=== PATIENT | female | born 1980 | race Caucasian/White ===

== ENCOUNTER 2016-08-13 00:40 | Emergency (ER) | payer MEDICARE, MEDICAID ==
[~2016-08-13 00:40] MED LIST: /CELE20CA PO; ACET500C; ACET500C PO; AMIT25TA2 OR; AMIT50TA PO; BACL10TA2 PO; CHEMO INJ; CIPR500T19; COLA50CA OR; DOCQ100C PO; DOCU10CA PO; FLEXERIL PO; FOLI1TAB2 PO; IBUP200T2 PO; IBUP400T PO; IBUPPOW25 PO; KEFL500C7 PO; LOPE2TAB PO; LYRI75CA OR; LYRI75CA PO; MIREIUD IU; MULTIVIT PO; NICO21DI4; NIFEREX; NORCOTAB PO; NYST50SS SS; No Historical Meds; PROC10TA PO; PSEU30OTC OR; SENN-15 PO; SENO8.6T5 OR; SOMA350T PO; TRAM50TA2 OR; TRAM50TA2 PO; TUMS500C PO; TYLE325T5 PO; TYLETAB3 PO; ULTR50TA PO; VITA500T53 PO; ZOFR20TA PO
[2016-08-13] MEDS ORDERED: traMADol 50 MG TAB As Ordered ONE (01:17)
[2016-08-13] MEDS ORDERED: KETOROLAC 30 MG/ML VIAL (J1885) As Ordered ONE (01:43)
[2016-08-13 01:47] LABS: BASO % 0.3 % (0.0-1.0); EOS # 0.1 K/mm3 (0.0-0.50); EOS % 3.2 % (0.0-3.0); LARGE UNSTAINED CELL # 0.1 K/mm3 (0.0-0.4); LARGE UNSTAINED CELL % 3.4 % (0.0-4.0); LYMPH # 0.2 K/mm3 (1.5-4.5); LYMPH % 8.2 % (24.0-44.0); MEAN CORPUSCULAR HGB CONC 34.7 g/dl (32.0-36.5); MEAN CORPUSCULAR VOLUME 86.6 fl (80.0-96.0); MONO # 0.2 K/mm3 (0.0-0.8); MONO % 6.9 % (0.0-5.0); NEUTROPHILS # 2.3 K/mm3 (1.8-7.7); PLATELET COUNT, AUTOMATED 133 k/mm3 (150-450); RED CELL DISTRIBUTION WIDTH 16.1 % (11.5-14.5); WHITE BLOOD COUNT 2.9 K/mm3 (4.0-10.0)
[2016-08-13 01:58] LABS: CONTROL LINE HCG INT CTR LINE PRESENT
[2016-08-13 02:03] LABS: ALBUMIN 3.2 GM/DL (3.2-5.2); ALBUMIN/GLOBULIN RATIO 0.97 (1.00-1.93); ALKALINE PHOSPHATASE 69 U/L (45-117); ALT/SGPT 18 U/L (12-78); AMYLASE 36 U/L (25-115); ANION GAP 8 MEQ/L (8-16); AST/SGOT 12 U/L (15-37); BILIRUBIN,DIRECT < 0.1 MG/DL (0.0-0.2); BILIRUBIN,TOTAL 0.1 MG/DL (0.2-1.0); BLOOD UREA NITROGEN 16 MG/DL (7-18); CARBON DIOXIDE LEVEL 27 MEQ/L (21-32); CHLORIDE LEVEL 106 MEQ/L (98-107); CREATININE FOR GFR 0.76 MG/DL (0.55-1.02); GLOMERULAR FILTRATION RATE > 60.0 (>60); GLUCOSE, FASTING 101 MG/DL (70-105); POTASSIUM SERUM 3.8 MEQ/L (3.5-5.1); SODIUM LEVEL 141 MEQ/L (136-145); TOTAL PROTEIN 6.5 GM/DL (6.4-8.2)
[2016-08-13] MEDS ORDERED: BACTRIM 160MG/800MG DS TAB As Ordered ONE (02:31)
[2016-08-13] MEDS ORDERED: ISOVUE-370 76% 100ML VIAL (Q9967) As Ordered ONE (02:40)
--- NOTE | 2016-08-13 04:00 | REPUSA ---
CLINICAL HISTORY: Abdominal pain. TECHNIQUE: Multiple axial, sagittal and coronal CT images were obtained through the abdomen and pelvi s after administration of intravenous contrast material. COMMENTS: Moderate large bowel fecal stasis. The liver is of uniform attenuation without mass or defect. There is no intra or extrahepatic biliary ductal dilatation. The spleen is normal. The gallbladder is within normal limits. The pancreas is of normal contour and attenuation characteristics. There is no evidence of adrenal mass. Both kidneys demonstrate prompt and equal nephrograms. The kidneys are normal in size, shape and conf iguration. There is no evidence of renal or ureteral mass. No renal or ureteral calculi are identifie d. There is no hydroureter or hydronephrosis. No evidence for appendicitis. There is no bowel wall thickening. No evidence for small or large madison l obstruction. There is no evidence of abdominal ascites or lymphadenopathy. Fluid-filled mildly dist ended stomach. There is no evidence of intrinsic or extrinsic bladder mass. Mild diffuse thickening of the wall of t he bladder. Small amount of free fluid in the pelvis. Images of the lung bases show no evidence of pleural or parenchymal mass. There are no pleural effusi ons. The bony structures are free of lytic or blastic lesions. Multilevel degenerative changes are seen in volving the thoracolumbar spine. Scattered calcifications are seen involving the aorta and major bran ches compatible with atherosclerosis. IMPRESSION: Large bowel fecal stasis. Mild diffuse thickening of the wall of the bladder. Thank you for your kind referral of this patient.
[2016-08-13] MEDS ORDERED: MORPHINE 4 MG/ML 1ML SYRINGE As Ordered ONE (04:18)
--- NOTE | 2016-08-13 04:52 | EDDOCDS ---
Nurse's Notes [facility] Name: Tammy Mcdonald Age: 36 yrs Sex: Female : 1980 Arrival Date: 08/13/2016 Time: 00:40 Bed 8 Private MD: [facility], [facility] Diagnosis: Abdominal tenderness;Urinary tract infection, site not specified Presentation: 08/13 00:43 Presenting complaint: EMS states: hx of cervical cancer, stage 3-4. had internal mlc radiation 3 days ago. pt c/o abdominal pain that radiated "up". FS 162. Risk factors: the patient reports a small or scant amount of vaginal bleeding. Adult Sepsis Screening: The patient does not have new or worsening altered mentation. Patient's respiratory rate is less than 22. Systolic blood pressure is greater than 100. Patient has a qSOFA score of 0- Negative Sepsis Screen. Suicide/Homicide risk assessment- the patient denies having any suicidal and/or homicidal ideations and does not present with any other emotional, behavioral or mental health complaints. Status: Patient is not a account services coordinator or dependent. Transition of care: patient was not received from another setting of care. 00:43 Acuity: YANE Level 3 mlc 00:43 Method Of Arrival: Ambulance mlc Triage Assessment: 00:52 General: Appears uncomfortable, Behavior is cooperative, fussy. Pain: Location: chest, mlc abdomen, groin and suprapubic area Pain currently is 10 out of 10 on a pain scale. HIV screening NA for this visit Offered previously. The patient is triaged at the bedside. See Assessment in Nurses Notes section of ED record. Neurological: Level of Consciousness is awake, alert, Oriented to person, place, time. Cardiovascular: Heart tones S1 S2 present. Respiratory: Airway is patent Respiratory effort is even, unlabored, Respiratory pattern is regular. Respiratory: Breath sounds are clear bilaterally. GI: Abdomen is non- distended Bowel sounds present X 4 quads. Abd is soft X 4 quads Abd is tender to palpation X 4 quads. Reports vomiting. : Reports vaginal bleeding that is spotty x3 days. Derm: Skin is normal. 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 Cephalexin Oral Unknown 3 times per day 2. prochlorperazine maleate 5 mg Oral tab 1 tab 3 times per day 3. baclofen 10 mg Oral tab 1 tab 3 times per day (Last dose: 08/12/2016) 4. ondansetron HCl 4 mg oral tab 1 tabs as needed (Last dose: 08/12/2016) 5. amitriptyline 50 mg Oral tab 1 tab nightly 6. Lyrica 75mg Oral 1 cap 2 times per day 7. Percocet 5-325 mg Oral tab (Last dose: 08/12/2016 23:00) 8. loperamide 2 mg Oral cap 2 caps 9. tramadol 50 mg Oral tab 1 tab (Last dose: 08/12/2016 22:00) 10. folic acid 1 mg Oral tab 1 tab once daily 11. Senexon-S 8.6-50 mg oral tab 2 tabs once daily as needed - PMHx: GERD; Degenerative disc disease; cervical cancer; progressive bone deterioration; back and neck issues; - PSHx: neck surgery; tubal ; - Social history: Smoking status: Patient states former smoker of tobacco. No barriers to communication noted, The patient speaks fluent Cypriot. - Family history: Not pertinent. - : The pt / caregiver states he / she is not on anticoagulants. Home medication list is obtained from the patient, [employer] import data, pill bottles. - Exposure Risk Screening:: None identified. Screenin:56 Screening information is obtained from the patient. Fall risk: No risks identified. mlc Assistance ADL's: requires no assistance with activities of daily living. Abuse/DV Screen: The patient / caregiver reports he/she is: not in a situation that causes fear, pain or injury. Nutritional screening: decrease in appetite . Advance Directives: Currently, there is a health care proxy, Whitney Mcdonald, mother. home support is adequate. Assessment: 00:58 General: see triage assessment. pt reports [place] [facility] [place] General: pt refused Tramadol, states she "knows it won't work, it is pointless". Dr. kianna Miller made aware . 01:49 Reassessment: Patient appears in no apparent distress at this time. pt medic[place] [facility] [place]. resp easy/unlabored. pt used bedpan but urine was contaminated by stool. . 02:34 Reassessment: Patient appears in no apparent distress at this time. Patient states mlc symptoms have improved. pain decreased to 6/10. resp easy/unlabored. pt medicated per order. Adult Sepsis Screening: The patient does not have new or worsening altered mentation. Patient's respiratory rate is less than 22. Systolic blood pressure is greater than 100. Patient has a qSOFA score of 0- Negative Sepsis Screen. 02:49 Reassessment: Patient appears in no apparent distress at this time. pt taken to and mlc returned from CT, tolerated well. . 03:54 Reassessment: Patient appears in no apparent distress at this time. pt resting with mlc eyes closed. resp easy/unlabored. . 04:49 General: Appears in no apparent distress, comfortable. Pain: Pain currently is 4 out of mlc 10 on a pain scale. Neurological: Level of Consciousness is awake, alert, obeys commands, Oriented to person, place, time. Respiratory: Airway is patent Respiratory effort is even, unlabored, Respiratory pattern is regular. Vital Signs: 00:49 BP 118 / 59; Pulse 77; Resp 20; Temp 98.8(O); Pulse Ox 100% on R/A; Weight 74.84 kg cln (R); Height 5 ft. 6 in. (167.64 cm) (R); Pain 8/10; 01:56 Pulse 98 MON; Pulse Ox 100% ; mlc 02:01 BP 119 / 57 (auto/); mlc 02:16 BP 132 / 59 (auto/); mlc 02:31 BP 124 / 82 (auto/); mlc 02:34 Pain 6/10; mlc 04:49 BP 114 / 68; Pulse 76; Resp 18; Temp 98.3; Pulse Ox 99% ; Pain 4/10; mlc 00:49 Body Mass Index 26.63 (74.84 kg, 167.64 cm) cln Vitals: 00:52 Log In Time N/A - ambulance [place] [facility] [place] Course: 00:41 Patient visited by Meghan Clayton PCA. tmm1 00:41 Patient moved to Waiting tmm1 00:[address] [facility] is Private Physician. tmm1 00:42 Yajaira Gomez RN is Primary Nurse. tmm1 00:42 Andrea Miller DO is Attending Physician. cs11 00:42 Patient visited by Andrea Miller DO. cs11 00:42 Patient moved to 8 tmm1 00:46 Triage Initiated mlc 00:50 Pt greeted and oriented to ED. Patient advised of names of staff involved in care, cln location of call peguero, wait times and NPO status. Patient has correct armband on for positive identification. Placed in gown. Bed in low position. Call light in reach. Side rails up X2. Pulse ox on. NIBP on. 00:51 Patient visited by Katharina Matute PCA. cln 00:56 Maintain field IV. Site clean & dry. Gauge & site: 18g left wrist. mlc 00:59 Patient visited by Yajaira Gomez,ARSEN. mlc 01:28 Patient visited by Yajaira Gomez RN. mlc 01:28 Assisted with bedpan. hayden 01:28 HCG,Serum Qualitative Sent. hayden 01:28 Urine Culture Sent. hayden 01:28 Lipase Sent. hayedn 01:28 Amylase Sent. hayden 01:28 Liver Profile Sent. hayden 01:28 MED Profile Sent. hayden 01:28 CBC with Diff Sent. hayden 01:50 Patient visited by Yajaira Gomez RN. mlc 02:30 [facility] Payment Agreement was scanned into [employer] and attached to record. lja 02:35 Patient visited by Yajaira Gomez RN. mlc 02:50 Patient visited by Yajaira Gomez RN. mlc 03:54 Patient visited by Yajaira Gomez,ARSEN. mlc 04:04 CT ABD & PELVIS: IV Contrast Only Returned. EDMS 04:49 The patient / caregiver is instructed regarding the plan of care and ED course. mlc 04:49 Discontinued IV lock intact, bleeding controlled, pressure dressing applied, No mlc redness/swelling at site. No procedures done that require assistance. Administered Medications: 01:28 Not Given (Patient Refused): traMADol 50 mg PO once mlc 01:49 Drug: ketorolac 30 mg [ketorolac 30 mg/mL (1 mL) injection solution (1 mL)] Route: IVP; mlc Site: left wrist; 02:34 Follow up: Pain 6/10 Adult; Response: Pain is decreased mlc 02:34 Drug: Trimethoprim-Sulfamethoxazole 1 tabs [sulfamethoxazole 800 mg-trimethoprim 160 mg mlc tablet (1 tabs)] Route: PO; 04:25 Drug: morphine 4 mg [morphine 4 mg/mL intravenous cartridge (1 mL)] Route: IVP; Site: mlc left wrist; 04:49 Follow up: Response: Pain is decreased [facility] [place] Results: Lab Order: CBC with Diff; SPEC'M 08/13/16 01:26 Test: WHITE BLOOD COUNT; Value: 2.9; Range: 4.0-10.0; Abnormal: Below low normal; Units: K/mm3; Status: F Test: RED BLOOD COUNT; Value: 3.23; Range: 4.00-5.40; Abnormal: Below low normal; Units: M/mm3; Status: F Test: HEMOGLOBIN; Value: 9.7; Range: 12.0-16.0; Abnormal: Below low normal; Units: g/dl; Status: F Test: HEMATOCRIT; Value: 27.9; Range: 36.0-47.0; Abnormal: Below low normal; Units: %; Status: F Test: MEAN CORPUSCULAR VOLUME; Value: 86.6; Range: 80.0-96.0; Units: fl; Status: F Test: MEAN CORPUSCULAR HEMOGLOBIN; Value: 30.0; Range: 27.0-33.0; Units: pg; Status: F Test: MEAN CORPUSCULAR HGB CONC; Value: 34.7; Range: 32.0-36.5; Units: g/dl; Status: F Test: RED CELL DISTRIBUTION WIDTH; Value: 16.1; Range: 11.5-14.5; Abnormal: Above high normal; Units: %; Status: F Test: PLATELET COUNT, AUTOMATED; Value: 133; Range: 150-450; Abnormal: Below low normal; Units: k/mm3; Status: F Test: NEUTROPHILS %; Value: 78.0; Range: 36.0-66.0; Abnormal: Above high normal; Units: %; Status: F Test: LYMPH %; Value: 8.2; Range: 24.0-44.0; Abnormal: Below low normal; Units: %; Status: F Test: MONO %; Value: 6.9; Range: 0.0-5.0; Abnormal: Above high normal; Units: %; Status: F Test: EOS %; Value: 3.2; Range: 0.0-3.0; Abnormal: Above high normal; Units: %; Status: F Test: BASO %; Value: 0.3; Range: 0.0-1.0; Units: %; Status: F Test: LARGE UNSTAINED CELL %; Value: 3.4; Range: 0.0-4.0; Units: %; Status: F Test: NEUTROPHILS #; Value: 2.3; Range: 1.8-7.7; Units: K/mm3; Status: F Test: LYMPH #; Value: 0.2; Range: 1.5-4.5; Abnormal: Below low normal; Units: K/mm3; Status: F Test: MONO #; Value: 0.2; Range: 0.0-0.8; Units: K/mm3; Status: F Test: EOS #; Value: 0.1; Range: 0.0-0.50; Units: K/mm3; Status: F Test: BASO #; Value: 0.0; Range: 0.0-0.2; Units: K/mm3; Status: F Test: LARGE UNSTAINED CELL #; Value: 0.1; Range: 0.0-0.4; Units: K/mm3; Status: F Lab Order: MED Profile; SPEC'M 08/13/16 01:26 Test: GLUCOSE, FASTING; Value: 101; Range: 70-105; Units: MG/DL; Status: F Test: BLOOD UREA NITROGEN; Value: 16; Range: 7-18; Units: MG/DL; Status: F Test: CREATININE FOR GFR; Value: 0.76; Range: 0.55-1.02; Units: MG/DL; Status: F Test: SODIUM LEVEL; Range: 136-145; Units: MEQ/L; Status: I Test: POTASSIUM SERUM; Range: 3.5-5.1; Units: MEQ/L; Status: I Test: CHLORIDE LEVEL; Range: 98-107; Units: MEQ/L; Status: I Test: CARBON DIOXIDE LEVEL; Range: 21-32; Units: MEQ/L; Status: I Test: ANION GAP; Range: 8-16; Units: MEQ/L; Status: I Test: CALCIUM LEVEL; Range: 8.5-10.1; Units: MG/DL; Status: I Test: GLOMERULAR FILTRATION RATE; Value: > 60.0; Range: >60; Status: F Test: SODIUM LEVEL; Value: 141; Range: 136-145; Units: MEQ/L; Status: F Test: POTASSIUM SERUM; Value: 3.8; Range: 3.5-5.1; Units: MEQ/L; Status: F Test: CHLORIDE LEVEL; Value: 106; Range: 98-107; Units: MEQ/L; Status: F Test: CARBON DIOXIDE LEVEL; Value: 27; Range: 21-32; Units: MEQ/L; Status: F Test: ANION GAP; Value: 8; Range: 8-16; Units: MEQ/L; Status: F Test: CALCIUM LEVEL; Value: 8.0; Range: 8.5-10.1; Abnormal: Below low normal; Units: MG/DL; Status: F Test Note: ; Units are mL/min/1.73 m2 Chronic Kidney Disease Staging per NKF: Stage I & II GFR >=60 Normal to Mildly Decreased Stage III GFR 30-59 Moderately Decreased Stage IV GFR 15-29 Severely Decreased Stage V GFR <15 Very Little GFR Left ESRD GFR <15 on HANDCREW FOREMAN Lab Order: Liver Profile; SPEC'M 08/13/16 01:26 Test: AST/SGOT; Value: 12; Range: 15-37; Abnormal: Below low normal; Units: U/L; Status: F Test: ALT/SGPT; Value: 18; Range: 12-78; Units: U/L; Status: F Test: ALKALINE PHOSPHATASE; Value: 69; Range: 45-117; Units: U/L; Status: F Test: BILIRUBIN,TOTAL; Value: 0.1; Range: 0.2-1.0; Abnormal: Below low normal; Units: MG/DL; Status: F Test: BILIRUBIN,DIRECT; Value: < 0.1; Range: 0.0-0.2; Units: MG/DL; Status: F Test: TOTAL PROTEIN; Value: 6.5; Range: 6.4-8.2; Units: GM/DL; Status: F Test: ALBUMIN; Value: 3.2; Range: 3.2-5.2; Units: GM/DL; Status: F Test: ALBUMIN/GLOBULIN RATIO; Value: 0.97; Range: 1.00-1.93; Abnormal: Below low normal; Status: F Lab Order: Amylase; SPEC'M 08/13/16 01:26 Test: AMYLASE; Value: 36; Range: 25-115; Units: U/L; Status: F Lab Order: Lipase; SPEC'M 08/13/16 01:26 Test: LIPASE; Value: 65; Range: 73-393; Abnormal: Below low normal; Units: U/L; Status: F Lab Order: Urinalysis: cath; SPEC'M 08/13/16 02:03 Test: APPEARANCE, URINE; Value: HAZY; Range: CLEAR; Status: F Test: COLOR, URINE; Value: YELLOW; Range: YELLOW; Status: F Test: PH,URINE; Value: 6.0; Range: 5.0-9.0; Units: UNITS; Status: F Test: SPECIFIC GRAVITY URINE AUTO; Value: 1.014; Range: 1.002-1.035; Status: F Test: PROTEIN, URINE AUTO; Value: NEGATIVE; Range: NEGATIVE; Units: mg/dL; Status: F Test: GLUCOSE, URINE (UA) AUTO; Value: NEGATIVE; Range: NEGATIVE; Units: mg/dL; Status: F Test: KETONE, URINE AUTO; Value: NEGATIVE; Range: NEGATIVE; Units: mg/dL; Status: F Test: UROBILINOGEN, URINE AUTO; Value: 0.2; Range: 0.0-2.0; Units: mg/dL; Status: F Test: BILIRUBIN, URINE AUTO; Value: NEGATIVE; Range: NEGATIVE; Status: F Test: NITRITE, URINE AUTO; Value: NEGATIVE; Range: NEGATIVE; Status: F Test: LEUKOCYTE ESTERASE, URINE AUTO; Value: 3+; Range: NEGATIVE; Abnormal: Above high normal; Status: F Test: BLOOD, URINE BLOOD; Value: 2+; Range: NEGATIVE; Abnormal: Above high normal; Status: F Test: WBC, URINE AUTO; Value: 35; Range: 0-3; Abnormal: Above high normal; Units: /HPF; Status: F Test: RBC, URINE AUTO; Value: 7; Range: 0-3; Abnormal: Above high normal; Units: /HPF; Status: F Test: BACTERIA, URINE AUTO; Value: 1+; Range: NEGATIVE; Abnormal: Above high normal; Status: F Test: SQUAMOUS EPITHELIAL CELL UR AU; Value: 3; Range: 0-6; Units: /HPF; Status: F Test: HYALINE CAST, URINE AUTO; Value: 0; Range: 0-1; Units: /LPF; Status: F Lab Order: HCG,Serum Qualitative; SPEC'M 08/13/16 01:26 Test: HCG, SERUM QUALITATIVE; Value: NEGATIVE; Range: NEGATIVE; Status: F Radiology Order: CT ABD & PELVIS: IV Contrast Only Test: CT ABD & PELVIS: IV Contrast Only REASON FOR EXAMINATION: Abdomen Pain; ; CLINICAL HISTORY: Abdominal pain.; TECHNIQUE: Multiple axial, sagittal and coronal CT images were obtained through the abdomen and pelvi; s after administration of intravenous contrast material.; COMMENTS:; Moderate large bowel fecal stasis.; The liver is of uniform attenuation without mass or defect. There is no intra or extrahepatic biliary; ductal dilatation. The spleen is normal. The gallbladder is within normal limits. The pancreas is of; normal contour and attenuation characteristics. There is no evidence of adrenal mass.; Both kidneys demonstrate prompt and equal nephrograms. The kidneys are normal in size, shape and conf; iguration. There is no evidence of renal or ureteral mass. No renal or ureteral calculi are identifie; d. There is no hydroureter or hydronephrosis.; No evidence for appendicitis. There is no bowel wall thickening. No evidence for small or large [place]; l obstruction. There is no evidence of abdominal ascites or lymphadenopathy. Fluid-filled mildly dist; ended stomach.; There is no evidence of intrinsic or extrinsic bladder mass. Mild diffuse thickening of the wall of t; he bladder. Small amount of free fluid in the pelvis.; Images of the lung bases show no evidence of pleural or parenchymal mass. There are no pleural effusi; ons.; The bony structures are free of lytic or blastic lesions. Multilevel degenerative changes are seen in; volving the thoracolumbar spine. Scattered calcifications are seen involving the aorta and major bran; ches compatible with atherosclerosis.; IMPRESSION:; Large bowel fecal stasis.; Mild diffuse thickening of the wall of the bladder.; Thank you for your kind referral of this patient.; ; Outcome: 04:06 Discharge ordered by Provider. cs11 04:49 Discharge Assessment: Patient awake, alert and oriented x 3. No cognitive and/or mlc functional deficits noted. Patient verbalized understanding of disposition instructions. patient administered narcotics - yes. Pt provided with safe discharge. The following High Risk Discharge criteria are identified: None. Discharged to home with family. Condition: good Condition: stable. Discharge instructions given to patient, Instructed on discharge instructions, follow up and referral plans. medication usage, Demonstrated understanding of instructions, medications, Pt was receptive of discharge instructions/ teaching. Prescriptions given X 1. CT Study completed. Property sent home with patient. 04:51 [place] [facility] [place] Signatures: Dispatcher [employer] EDMS Jennifer Cottrell, GOODS LAYER GOODS LAYER hayden Andrea Miller, DO cs11 Meghan Clayton, GOODS LAYER GOODS LAYER tmm1 Yajaira Gomez,RN RN mlc Arel, Katharina Boudreaux, GOODS LAYER GOODS LAYER cln Corrections: (The following items were deleted from the chart) 01:52 00:52 Allergies: Ritalin (anxious); [facility] MTDD
--- NOTE | 2016-08-13 04:52 | EDDOCDS ---
Physician Documentation [facility] Name: Tammy Mcdonald Age: 36 yrs Sex: Female : 1980 Arrival Date: 08/13/2016 Time: 00:40 Bed 8 Private MD: [facility] Disposition: 08/13/16 04:06 Discharged to Home/Self Care. Impression: Abdominal tenderness, Urinary tract infection, site not specified. - Condition is Stable. - Prescriptions for Bactrim DS 800- 160 mg Oral Tablet - take 1 tablet by ORAL route every 12 hours for 7 days; 13 tablet. - Medication Reconciliation, Local Pharmacy Hours form. - Follow up: Private Physician; When: Call to arrange an appointment; Reason: Recheck today's complaints. - Problem is an ongoing problem. - Symptoms have improved. Historical: - Allergies: Reglan; - Home Meds: 1. Cephalexin Oral Unknown 3 times per day 2. prochlorperazine maleate 5 mg Oral tab 1 tab 3 times per day 3. baclofen 10 mg Oral tab 1 tab 3 times per day (Last dose: 08/12/2016) 4. ondansetron HCl 4 mg oral tab 1 tabs as needed (Last dose: 08/12/2016) 5. amitriptyline 50 mg Oral tab 1 tab nightly 6. Lyrica 75mg Oral 1 cap 2 times per day 7. Percocet 5-325 mg Oral tab (Last dose: 08/12/2016 23:00) 8. loperamide 2 mg Oral cap 2 caps 9. tramadol 50 mg Oral tab 1 tab (Last dose: 08/12/2016 22:00) 10. folic acid 1 mg Oral tab 1 tab once daily 11. Senexon-S 8.6-50 mg oral tab 2 tabs once daily as needed - PMHx: GERD; Degenerative disc disease; cervical cancer; progressive bone deterioration; back and neck issues; - PSHx: neck surgery; tubal ; - Social history: Smoking status: Patient states former smoker of tobacco. No barriers to communication noted, The patient speaks fluent Estonian. - Family history: Not pertinent. - : The pt / caregiver states he / she is not on anticoagulants. Home medication list is obtained from the patient, [employer] import data, pill bottles. - Exposure Risk Screening:: None identified. 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 6 in. (167.64 cm) (R); Pain 8/10; 01:56 Pulse 98 MON; Pulse Ox 100% ; mlc 02:01 BP 119 / 57 (auto/); mlc 02:16 BP 132 / 59 (auto/); mlc 02:31 BP 124 / 82 (auto/); mlc 02:34 Pain 6/10; mlc 04:49 BP 114 / 68; Pulse 76; Resp 18; Temp 98.3; Pulse Ox 99% ; Pain 4/10; mlc 00:49 Body Mass Index 26.63 (74.84 kg, 167.64 cm) cln MDM: 01:14 traMADol 50 mg PO once ordered. cs11 01:15 CBC with Diff Ordered. EDMS 01:15 MED Profile Ordered. EDMS 01:15 Liver Profile Ordered. EDMS 01:15 Amylase Ordered. EDMS 01:15 Lipase Ordered. EDMS 01:15 Urinalysis: cath Ordered. EDMS 01:15 HCG,Serum Qualitative Ordered. EDMS 01:15 Urine Culture Ordered. EDMS 01:34 ketorolac 30 mg IVP once ordered. cs11 01:34 IV Saline Lock ordered. cs11 02:21 CBC with Diff Reviewed. cs11 02:21 MED Profile Reviewed. cs11 02:21 Liver Profile Reviewed. cs11 02:21 Lipase Reviewed. cs11 02:21 Urinalysis: cath Reviewed. cs11 02:21 Amylase Reviewed. cs11 02:21 HCG,Serum Qualitative Reviewed. cs11 02:26 Trimethoprim-Sulfamethoxazole 160 mg-800 mg (DS) 1 tabs PO once ordered. cs11 02:26 CT ABD & PELVIS: IV Contrast Only Ordered. EDMS 02:30 [facility] Payment Agreement was scanned into [employer] and attached to record. lja 02:30 Financial registration complete. lja 04:14 morphine 4 mg IVP once ordered. cs11 Administered Medications: 01:28 Not Given (Patient Refused): traMADol 50 mg PO once mlc 01:49 Drug: ketorolac 30 mg [ketorolac 30 mg/mL (1 mL) injection solution (1 mL)] Route: IVP; [facility] Site: left wrist; 02:34 Follow up: Pain 6/10 Adult; Response: Pain is decreased [facility] 02:34 Drug: Trimethoprim-Sulfamethoxazole 1 tabs [sulfamethoxazole 800 mg-trimethoprim 160 mg mlc tablet (1 tabs)] Route: PO; 04:25 Drug: morphine 4 mg [morphine 4 mg/mL intravenous cartridge (1 mL)] Route: IVP; Site: mlc left wrist; 04:49 Follow up: Response: Pain is decreased [facility] [place] Signatures: Dispatcher [employer] EDMS Andrea Miller, DO cs11 Yajaira Gomez RN RN [facility] Mark AnthonylDebbie The chart was reviewed and I authenticate all verbal orders and agree with the evaluation and treatment provided.Corrections: (The following items were deleted from the chart) 01:52 00:52 Allergies: Ritalin (anxious); [facility] Attachments: 02:30 [facility] Payment Agreement asya MTDD
--- NOTE | 2016-08-15 05:53 | EDDOCDS ---
Physician Documentation [facility] Name: Tammy Mcdonald Age: 36 yrs Sex: Female : 1980 Arrival Date: 08/13/2016 Time: 00:40 Bed 8 Private MD: [facility], [facility] Disposition: 08/13/16 04:06 Discharged to Home/Self Care. Impression: Abdominal tenderness, Urinary tract infection, site not specified. - Condition is Stable. - Prescriptions for Bactrim DS 800- 160 mg Oral Tablet - take 1 tablet by ORAL route every 12 hours for 7 days; 13 tablet. - Medication Reconciliation, Local Pharmacy Hours form. - Follow up: Private Physician; When: Call to arrange an appointment; Reason: Recheck today's complaints. - Problem is an ongoing problem. - Symptoms have improved. Historical: - Allergies: Reglan; - Home Meds: 1. Cephalexin Oral Unknown 3 times per day 2. prochlorperazine maleate 5 mg Oral tab 1 tab 3 times per day 3. baclofen 10 mg Oral tab 1 tab 3 times per day (Last dose: 08/12/2016) 4. ondansetron HCl 4 mg oral tab 1 tabs as needed (Last dose: 08/12/2016) 5. amitriptyline 50 mg Oral tab 1 tab nightly 6. Lyrica 75mg Oral 1 cap 2 times per day 7. Percocet 5-325 mg Oral tab (Last dose: 08/12/2016 23:00) 8. loperamide 2 mg Oral cap 2 caps 9. tramadol 50 mg Oral tab 1 tab (Last dose: 08/12/2016 22:00) 10. folic acid 1 mg Oral tab 1 tab once daily 11. Senexon-S 8.6-50 mg oral tab 2 tabs once daily as needed - PMHx: GERD; Degenerative disc disease; cervical cancer; progressive bone deterioration; back and neck issues; - PSHx: neck surgery; tubal ; - Social history: Smoking status: Patient states former smoker of tobacco. No barriers to communication noted, The patient speaks fluent Faroese. - Family history: Not pertinent. - : The pt / caregiver states he / she is not on anticoagulants. Home medication list is obtained from the patient, Contact[employer] import data, pill bottles. - Exposure Risk Screening:: None identified. 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 6 in. (167.64 cm) (R); Pain 8/10; 01:56 Pulse 98 MON; Pulse Ox 100% ; mlc 02:01 BP 119 / 57 (auto/); mlc 02:16 BP 132 / 59 (auto/); mlc 02:31 BP 124 / 82 (auto/); mlc 02:34 Pain 6/10; mlc 04:49 BP 114 / 68; Pulse 76; Resp 18; Temp 98.3; Pulse Ox 99% ; Pain 4/10; mlc 00:49 Body Mass Index 26.63 (74.84 kg, 167.64 cm) cln MDM: 01:14 traMADol 50 mg PO once ordered. cs11 01:15 CBC with Diff Ordered. EDMS 01:15 MED Profile Ordered. EDMS 01:15 Liver Profile Ordered. EDMS 01:15 Amylase Ordered. EDMS 01:15 Lipase Ordered. EDMS 01:15 Urinalysis: cath Ordered. EDMS 01:15 HCG,Serum Qualitative Ordered. EDMS 01:15 Urine Culture Ordered. EDMS 01:34 ketorolac 30 mg IVP once ordered. cs11 01:34 IV Saline Lock ordered. cs11 02:21 CBC with Diff Reviewed. cs11 02:21 MED Profile Reviewed. cs11 02:21 Liver Profile Reviewed. cs11 02:21 Lipase Reviewed. cs11 02:21 Urinalysis: cath Reviewed. cs11 02:21 Amylase Reviewed. cs11 02:21 HCG,Serum Qualitative Reviewed. cs11 02:26 Trimethoprim-Sulfamethoxazole 160 mg-800 mg (DS) 1 tabs PO once ordered. cs11 02:26 CT ABD & PELVIS: IV Contrast Only Ordered. EDMS 02:30 [facility] Payment Agreement was scanned into [employer] and attached to record. lja 02:30 Financial registration complete. lja 04:14 morphine 4 mg IVP once ordered. cs11 05:55 T-Sheet-- Draft Copy was scanned into [employer] and attached to record. hs2 14:21 PCR was scanned into [employer] and attached to record. gb 14:46 Rhythm Strip was scanned into [employer] and attached to record. gb Administered Medications: 01:28 Not Given (Patient Refused): traMADol 50 mg PO once mlc 01:49 Drug: ketorolac 30 mg [ketorolac 30 mg/mL (1 mL) injection solution (1 mL)] Route: IVP; mlc Site: left wrist; 02:34 Follow up: Pain 6/10 Adult; Response: Pain is decreased [facility] 02:34 Drug: Trimethoprim-Sulfamethoxazole 1 tabs [sulfamethoxazole 800 mg-trimethoprim 160 mg mlc tablet (1 tabs)] Route: PO; 04:25 Drug: morphine 4 mg [morphine 4 mg/mL intravenous cartridge (1 mL)] Route: IVP; Site: mlc left wrist; 04:49 Follow up: Response: Pain is decreased [facility] Signatures: Dispatcher [employer] EDDiana Cochran, Reg Reg gb Andrea Miller, DO cs11 Yajaira Gomez RN RN [facility] Arel, Mervat Peres, Reg Reg hs2 The chart was reviewed and I authenticate all verbal orders and agree with the evaluation and treatment provided.Corrections: (The following items were deleted from the chart) 01:52 00:52 Allergies: Ritalin (anxious); mlc mlc Attachments: 02:30 [facility] Payment Agreement asya 05:55 T-Sheet-- Draft Copy hs2 Chart Complete MTDD
--- NOTE | 2016-08-15 05:53 | EDDOCDS ---
Nurse's Notes [facility] Name: Tammy Mcdonald Age: 36 yrs Sex: Female : 1980 Arrival Date: 08/13/2016 Time: 00:40 Bed 8 Private MD: [facility] Diagnosis: Abdominal tenderness;Urinary tract infection, site not specified Presentation: 08/13 00:43 Presenting complaint: EMS states: hx of cervical cancer, stage 3-4. had internal mlc radiation 3 days ago. pt c/o abdominal pain that radiated "up". FS 162. Risk factors: the patient reports a small or scant amount of vaginal bleeding. Adult Sepsis Screening: The patient does not have new or worsening altered mentation. Patient's respiratory rate is less than 22. Systolic blood pressure is greater than 100. Patient has a qSOFA score of 0- Negative Sepsis Screen. Suicide/Homicide risk assessment- the patient denies having any suicidal and/or homicidal ideations and does not present with any other emotional, behavioral or mental health complaints. Status: Patient is not a service establishment attendant or dependent. Transition of care: patient was not received from another setting of care. 00:43 Acuity: YANE Level 3 mlc 00:43 Method Of Arrival: Ambulance mlc Triage Assessment: 00:52 General: Appears uncomfortable, Behavior is cooperative, fussy. Pain: Location: chest, mlc abdomen, groin and suprapubic area Pain currently is 10 out of 10 on a pain scale. HIV screening NA for this visit Offered previously. The patient is triaged at the bedside. See Assessment in Nurses Notes section of ED record. Neurological: Level of Consciousness is awake, alert, Oriented to person, place, time. Cardiovascular: Heart tones S1 S2 present. Respiratory: Airway is patent Respiratory effort is even, unlabored, Respiratory pattern is regular. Respiratory: Breath sounds are clear bilaterally. GI: Abdomen is non- distended Bowel sounds present X 4 quads. Abd is soft X 4 quads Abd is tender to palpation X 4 quads. Reports vomiting. : Reports vaginal bleeding that is spotty x3 days. Derm: Skin is normal. 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 Cephalexin Oral Unknown 3 times per day 2. prochlorperazine maleate 5 mg Oral tab 1 tab 3 times per day 3. baclofen 10 mg Oral tab 1 tab 3 times per day (Last dose: 08/12/2016) 4. ondansetron HCl 4 mg oral tab 1 tabs as needed (Last dose: 08/12/2016) 5. amitriptyline 50 mg Oral tab 1 tab nightly 6. Lyrica 75mg Oral 1 cap 2 times per day 7. Percocet 5-325 mg Oral tab (Last dose: 08/12/2016 23:00) 8. loperamide 2 mg Oral cap 2 caps 9. tramadol 50 mg Oral tab 1 tab (Last dose: 08/12/2016 22:00) 10. folic acid 1 mg Oral tab 1 tab once daily 11. Senexon-S 8.6-50 mg oral tab 2 tabs once daily as needed - PMHx: GERD; Degenerative disc disease; cervical cancer; progressive bone deterioration; back and neck issues; - PSHx: neck surgery; tubal ; - Social history: Smoking status: Patient states former smoker of tobacco. No barriers to communication noted, The patient speaks fluent Samoan. - Family history: Not pertinent. - : The pt / caregiver states he / she is not on anticoagulants. Home medication list is obtained from the patient, [employer] import data, pill bottles. - Exposure Risk Screening:: None identified. Screenin:56 Screening information is obtained from the patient. Fall risk: No risks identified. mlc Assistance ADL's: requires no assistance with activities of daily living. Abuse/DV Screen: The patient / caregiver reports he/she is: not in a situation that causes fear, pain or injury. Nutritional screening: decrease in appetite . Advance Directives: Currently, there is a health care proxy, Whitney Mcdonald, mother. home support is adequate. Assessment: 00:58 General: see triage assessment. pt reports last internal radiation was [place] [facility] [place] 01:28 General: pt refused Tramadol, states she "knows it won't work, it is pointless". Dr. kianna Miller made aware . 01:49 Reassessment: Patient appears in no apparent distress at this time. pt medicated per [facility] order. resp easy/unlabored. pt used bedpan but urine was contaminated by stool. . 02:34 Reassessment: Patient appears in no apparent distress at this time. Patient states mlc symptoms have improved. pain decreased to 6/10. resp easy/unlabored. pt medicated per order. Adult Sepsis Screening: The patient does not have new or worsening altered mentation. Patient's respiratory rate is less than 22. Systolic blood pressure is greater than 100. Patient has a qSOFA score of 0- Negative Sepsis Screen. 02:49 Reassessment: Patient appears in no apparent distress at this time. pt taken to and mlc returned from CT, tolerated well. . 03:54 Reassessment: Patient appears in no apparent distress at this time. pt resting with mlc eyes closed. resp easy/unlabored. . 04:49 General: Appears in no apparent distress, comfortable. Pain: Pain currently is 4 out of mlc 10 on a pain scale. Neurological: Level of Consciousness is awake, alert, obeys commands, Oriented to person, place, time. Respiratory: Airway is patent Respiratory effort is even, unlabored, Respiratory pattern is regular. Vital Signs: 00:49 BP 118 / 59; Pulse 77; Resp 20; Temp 98.8(O); Pulse Ox 100% on R/A; Weight 74.84 kg cln (R); Height 5 ft. 6 in. (167.64 cm) (R); Pain 8/10; 01:56 Pulse 98 MON; Pulse Ox 100% ; mlc 02:01 BP 119 / 57 (auto/); mlc 02:16 BP 132 / 59 (auto/); mlc 02:31 BP 124 / 82 (auto/); mlc 02:34 Pain 6/10; mlc 04:49 BP 114 / 68; Pulse 76; Resp 18; Temp 98.3; Pulse Ox 99% ; Pain 4/10; mlc 00:49 Body Mass Index 26.63 (74.84 kg, 167.64 cm) cln Vitals: 00:52 Log In Time N/A - ambulance arrival. [facility] ED Course: 00:41 Patient visited by eMghan Clayton PCA. tmm1 00:41 Patient moved to Waiting tmm1 00:42 [facility] is Private Physician. tmm1 00:42 Yajaira Gomez RN is Primary Nurse. tmm1 00:42 Andrea Miller DO is Attending Physician. cs11 00:42 Patient visited by Andrea Miller DO. cs11 00:42 Patient moved to 8 tmm1 00:46 Triage Initiated mlc 00:50 Pt greeted and oriented to ED. Patient advised of names of staff involved in care, cln location of call peguero, wait times and NPO status. Patient has correct armband on for positive identification. Placed in gown. Bed in low position. Call light in reach. Side rails up X2. Pulse ox on. NIBP on. 00:51 Patient visited by Katharina Matute PCA. cln 00:56 Maintain field IV. Site clean & dry. Gauge & site: 18g left wrist. mlc 00:59 Patient visited by Yajaira Gomez,ARSEN. mlc 01:28 Patient visited by Yajaira Gomez RN. mlc 01:28 Assisted with bedpan. hayden 01:28 HCG,Serum Qualitative Sent. hayden 01:28 Urine Culture Sent. hayden 01:28 Lipase Sent. hayedn 01:28 Amylase Sent. hayden 01:28 Liver Profile Sent. hayden 01:28 MED Profile Sent. hayden 01:28 CBC with Diff Sent. hayden 01:50 Patient visited by Yajaira Gomez RN. mlc 02:30 REPLACED BY [facility] Payment Agreement was scanned into [employer] and attached to record. lja 02:35 Patient visited by Yajaira Gomez RN. mlc 02:50 Patient visited by Yajaira Gomez RN. mlc 03:54 Patient visited by Yajaira Gomez,ARSEN. mlc 04:04 CT ABD & PELVIS: IV Contrast Only Returned. EDMS 04:49 The patient / caregiver is instructed regarding the plan of care and ED course. mlc 04:49 Discontinued IV lock intact, bleeding controlled, pressure dressing applied, No mlc redness/swelling at site. No procedures done that require assistance. 05:55 T-Sheet-- Draft Copy was scanned into [employer] and attached to record. hs2 14:21 PCR was scanned into [employer] and attached to record. gb 14:46 Rhythm Strip was scanned into [employer] and attached to record. gb Administered Medications: 01:28 Not Given (Patient Refused): traMADol 50 mg PO once mlc 01:49 Drug: ketorolac 30 mg [ketorolac 30 mg/mL (1 mL) injection solution (1 mL)] Route: IVP; mlc Site: left wrist; 02:34 Follow up: Pain 6/10 Adult; Response: Pain is decreased [facility] 02:34 Drug: Trimethoprim-Sulfamethoxazole 1 tabs [sulfamethoxazole 800 mg-trimethoprim 160 mg mlc tablet (1 tabs)] Route: PO; 04:25 Drug: morphine 4 mg [morphine 4 mg/mL intravenous cartridge (1 mL)] Route: IVP; Site: mlc left wrist; 04:49 Follow up: Response: Pain is decreased [facility] Attachments: 14:46 Rhythm Strip gb Order Results: Lab Order: CBC with Diff; SPEC'M 08/13/16 01:26 Test: WHITE BLOOD COUNT; Value: 2.9; Range: 4.0-10.0; Abnormal: Below low normal; Units: K/mm3; Status: F Test: RED BLOOD COUNT; Value: 3.23; Range: 4.00-5.40; Abnormal: Below low normal; Units: M/mm3; Status: F Test: HEMOGLOBIN; Value: 9.7; Range: 12.0-16.0; Abnormal: Below low normal; Units: g/dl; Status: F Test: HEMATOCRIT; Value: 27.9; Range: 36.0-47.0; Abnormal: Below low normal; Units: %; Status: F Test: MEAN CORPUSCULAR VOLUME; Value: 86.6; Range: 80.0-96.0; Units: fl; Status: F Test: MEAN CORPUSCULAR HEMOGLOBIN; Value: 30.0; Range: 27.0-33.0; Units: pg; Status: F Test: MEAN CORPUSCULAR HGB CONC; Value: 34.7; Range: 32.0-36.5; Units: g/dl; Status: F Test: RED CELL DISTRIBUTION WIDTH; Value: 16.1; Range: 11.5-14.5; Abnormal: Above high normal; Units: %; Status: F Test: PLATELET COUNT, AUTOMATED; Value: 133; Range: 150-450; Abnormal: Below low normal; Units: k/mm3; Status: F Test: NEUTROPHILS %; Value: 78.0; Range: 36.0-66.0; Abnormal: Above high normal; Units: %; Status: F Test: LYMPH %; Value: 8.2; Range: 24.0-44.0; Abnormal: Below low normal; Units: %; Status: F Test: MONO %; Value: 6.9; Range: 0.0-5.0; Abnormal: Above high normal; Units: %; Status: F Test: EOS %; Value: 3.2; Range: 0.0-3.0; Abnormal: Above high normal; Units: %; Status: F Test: BASO %; Value: 0.3; Range: 0.0-1.0; Units: %; Status: F Test: LARGE UNSTAINED CELL %; Value: 3.4; Range: 0.0-4.0; Units: %; Status: F Test: NEUTROPHILS #; Value: 2.3; Range: 1.8-7.7; Units: K/mm3; Status: F Test: LYMPH #; Value: 0.2; Range: 1.5-4.5; Abnormal: Below low normal; Units: K/mm3; Status: F Test: MONO #; Value: 0.2; Range: 0.0-0.8; Units: K/mm3; Status: F Test: EOS #; Value: 0.1; Range: 0.0-0.50; Units: K/mm3; Status: F Test: BASO #; Value: 0.0; Range: 0.0-0.2; Units: K/mm3; Status: F Test: LARGE UNSTAINED CELL #; Value: 0.1; Range: 0.0-0.4; Units: K/mm3; Status: F Lab Order: [facility] Profile; [facility]' 08/13/16 01:26 Test: GLUCOSE, FASTING; Value: 101; Range: 70-105; Units: MG/DL; Status: F Test: BLOOD UREA NITROGEN; Value: 16; Range: 7-18; Units: MG/DL; Status: F Test: CREATININE FOR GFR; Value: 0.76; Range: 0.55-1.02; Units: MG/DL; Status: F Test: SODIUM LEVEL; Range: 136-145; Units: MEQ/L; Status: I Test: POTASSIUM SERUM; Range: 3.5-5.1; Units: MEQ/L; Status: I Test: CHLORIDE LEVEL; Range: 98-107; Units: MEQ/L; Status: I Test: CARBON DIOXIDE LEVEL; Range: 21-32; Units: MEQ/L; Status: I Test: ANION GAP; Range: 8-16; Units: MEQ/L; Status: I Test: CALCIUM LEVEL; Range: 8.5-10.1; Units: MG/DL; Status: I Test: GLOMERULAR FILTRATION RATE; Value: > 60.0; Range: >60; Status: F Test: SODIUM LEVEL; Value: 141; Range: 136-145; Units: MEQ/L; Status: F Test: POTASSIUM SERUM; Value: 3.8; Range: 3.5-5.1; Units: MEQ/L; Status: F Test: CHLORIDE LEVEL; Value: 106; Range: 98-107; Units: MEQ/L; Status: F Test: CARBON DIOXIDE LEVEL; Value: 27; Range: 21-32; Units: MEQ/L; Status: F Test: ANION GAP; Value: 8; Range: 8-16; Units: MEQ/L; Status: F Test: CALCIUM LEVEL; Value: 8.0; Range: 8.5-10.1; Abnormal: Below low normal; Units: MG/DL; Status: F Test Note: ; Units are mL/min/1.73 m2 Chronic Kidney Disease Staging per NKF: Stage I & II GFR >=60 Normal to Mildly Decreased Stage III GFR 30-59 Moderately Decreased Stage IV GFR 15-29 Severely Decreased Stage V GFR <15 Very Little GFR Left ESRD GFR <15 on UPHOLSTERER LIMOUSINE AND HEARSE Lab Order: Liver Profile; JACINTO'Oralia 08/13/16 01:26 Test: AST/SGOT; Value: 12; Range: 15-37; Abnormal: Below low normal; Units: U/L; Status: F Test: ALT/SGPT; Value: 18; Range: 12-78; Units: U/L; Status: F Test: ALKALINE PHOSPHATASE; Value: 69; Range: 45-117; Units: U/L; Status: F Test: BILIRUBIN,TOTAL; Value: 0.1; Range: 0.2-1.0; Abnormal: Below low normal; Units: MG/DL; Status: F Test: BILIRUBIN,DIRECT; Value: < 0.1; Range: 0.0-0.2; Units: MG/DL; Status: F Test: TOTAL PROTEIN; Value: 6.5; Range: 6.4-8.2; Units: GM/DL; Status: F Test: ALBUMIN; Value: 3.2; Range: 3.2-5.2; Units: GM/DL; Status: F Test: ALBUMIN/GLOBULIN RATIO; Value: 0.97; Range: 1.00-1.93; Abnormal: Below low normal; Status: F Lab Order: Amylase; SPEC'M 08/13/16 01:26 Test: AMYLASE; Value: 36; Range: 25-115; Units: U/L; Status: F Lab Order: Lipase; SPEC'M 08/13/16 01:26 Test: LIPASE; Value: 65; Range: 73-393; Abnormal: Below low normal; Units: U/L; Status: F Lab Order: Urinalysis: cath; SPEC'M 08/13/16 02:03 Test: APPEARANCE, URINE; Value: HAZY; Range: CLEAR; Status: F Test: COLOR, URINE; Value: YELLOW; Range: YELLOW; Status: F Test: PH,URINE; Value: 6.0; Range: 5.0-9.0; Units: UNITS; Status: F Test: SPECIFIC GRAVITY URINE AUTO; Value: 1.014; Range: 1.002-1.035; Status: F Test: PROTEIN, URINE AUTO; Value: NEGATIVE; Range: NEGATIVE; Units: mg/dL; Status: F Test: GLUCOSE, URINE (UA) AUTO; Value: NEGATIVE; Range: NEGATIVE; Units: mg/dL; Status: F Test: KETONE, URINE AUTO; Value: NEGATIVE; Range: NEGATIVE; Units: mg/dL; Status: F Test: UROBILINOGEN, URINE AUTO; Value: 0.2; Range: 0.0-2.0; Units: mg/dL; Status: F Test: BILIRUBIN, URINE AUTO; Value: NEGATIVE; Range: NEGATIVE; Status: F Test: NITRITE, URINE AUTO; Value: NEGATIVE; Range: NEGATIVE; Status: F Test: LEUKOCYTE ESTERASE, URINE AUTO; Value: 3+; Range: NEGATIVE; Abnormal: Above high normal; Status: F Test: BLOOD, URINE BLOOD; Value: 2+; Range: NEGATIVE; Abnormal: Above high normal; Status: F Test: WBC, URINE AUTO; Value: 35; Range: 0-3; Abnormal: Above high normal; Units: /HPF; Status: F Test: RBC, URINE AUTO; Value: 7; Range: 0-3; Abnormal: Above high normal; Units: /HPF; Status: F Test: BACTERIA, URINE AUTO; Value: 1+; Range: NEGATIVE; Abnormal: Above high normal; Status: F Test: SQUAMOUS EPITHELIAL CELL UR AU; Value: 3; Range: 0-6; Units: /HPF; Status: F Test: HYALINE CAST, URINE AUTO; Value: 0; Range: 0-1; Units: /LPF; Status: F Lab Order: Urine Culture; SPEC'M 08/13/16 02:03 Test: URINE CULTURE; Value: URINE CULTURE RESULT SPECIMEN APPEARS CONTAMINATED; Status: F Lab Order: HCG,Serum Qualitative; SPEC'M 08/13/16 01:26 Test: HCG, SERUM QUALITATIVE; Value: NEGATIVE; Range: NEGATIVE; Status: F Radiology Order: CT ABD & PELVIS: IV Contrast Only Test: CT ABD & PELVIS: IV Contrast Only REASON FOR EXAMINATION: Abdomen Pain; ; CLINICAL HISTORY: Abdominal pain.; TECHNIQUE: Multiple axial, sagittal and coronal CT images were obtained through the abdomen and pelvi; s after administration of intravenous contrast material.; COMMENTS:; Moderate large bowel fecal stasis.; The liver is of uniform attenuation without mass or defect. There is no intra or extrahepatic biliary; ductal dilatation. The spleen is normal. The gallbladder is within normal limits. The pancreas is of; normal contour and attenuation characteristics. There is no evidence of adrenal mass.; Both kidneys demonstrate prompt and equal nephrograms. The kidneys are normal in size, shape and conf; iguration. There is no evidence of renal or ureteral mass. No renal or ureteral calculi are identifie; d. There is no hydroureter or hydronephrosis.; No evidence for appendicitis. There is no bowel wall thickening. No evidence for small or large [place]; l obstruction. There is no evidence of abdominal ascites or lymphadenopathy. Fluid-filled mildly dist; ended stomach.; There is no evidence of intrinsic or extrinsic bladder mass. Mild diffuse thickening of the wall of t; he bladder. Small amount of free fluid in the pelvis.; Images of the lung bases show no evidence of pleural or parenchymal mass. There are no pleural effusi; ons.; The bony structures are free of lytic or blastic lesions. Multilevel degenerative changes are seen in; volving the thoracolumbar spine. Scattered calcifications are seen involving the aorta and major bran; ches compatible with atherosclerosis.; IMPRESSION:; Large bowel fecal stasis.; Mild diffuse thickening of the wall of the bladder.; Thank you for your kind referral of this patient.; ; Outcome: 04:06 Discharge ordered by Provider. cs11 04:49 Discharge Assessment: Patient awake, alert and oriented x 3. No cognitive and/or mlc functional deficits noted. Patient verbalized understanding of disposition instructions. patient administered narcotics - yes. Pt provided with safe discharge. The following High Risk Discharge criteria are identified: None. Discharged to home with family. Condition: good Condition: stable. Discharge instructions given to patient, Instructed on discharge instructions, follow up and referral plans. medication usage, Demonstrated understanding of instructions, medications, Pt was receptive of discharge instructions/ teaching. Prescriptions given X 1. CT Study completed. Property sent home with patient. 04:51 Patient left the ED. mlc Signatures: Dispatcher [employer] EDMS Diana Barber, Reg Reg gb Jennifer Cottrell, BLADE BENDER FURNACE TENDER BLADE BENDER FURNACE TENDER hayden Andrea Miller, DO cs11 Meghan Clayton, BLADE BENDER FURNACE TENDER BLADE BENDER FURNACE TENDER tmm1 Yajaira Gomez,RN RN mlc Mark Anthonyl, Mervat Peres, Reg Reg hs2 Katharina Matute, BLADE BENDER FURNACE TENDER BLADE BENDER FURNACE TENDER cln Corrections: (The following items were deleted from the chart) 01:52 00:52 Allergies: Ritalin (anxious); mlc mlc Chart Complete MTDD
--- NOTE | 2016-08-15 05:53 | EDDOCDS ---
Physician Documentation [facility] Name: Tammy Mcdonald Age: 36 yrs Sex: Female : 1980 Arrival Date: 08/13/2016 Time: 00:40 Bed 8 Private MD: [facility] Disposition: 08/13/16 04:06 Discharged to Home/Self Care. Impression: Abdominal tenderness, Urinary tract infection, site not specified. - Condition is Stable. - Prescriptions for Bactrim DS 800- 160 mg Oral Tablet - take 1 tablet by ORAL route every 12 hours for 7 days; 13 tablet. - Medication Reconciliation, Local Pharmacy Hours form. - Follow up: Private Physician; When: Call to arrange an appointment; Reason: Recheck today's complaints. - Problem is an ongoing problem. - Symptoms have improved. Historical: - Allergies: Reglan; - Home Meds: 1. Cephalexin Oral Unknown 3 times per day 2. prochlorperazine maleate 5 mg Oral tab 1 tab 3 times per day 3. baclofen 10 mg Oral tab 1 tab 3 times per day (Last dose: 08/12/2016) 4. ondansetron HCl 4 mg oral tab 1 tabs as needed (Last dose: 08/12/2016) 5. amitriptyline 50 mg Oral tab 1 tab nightly 6. Lyrica 75mg Oral 1 cap 2 times per day 7. Percocet 5-325 mg Oral tab (Last dose: 08/12/2016 23:00) 8. loperamide 2 mg Oral cap 2 caps 9. tramadol 50 mg Oral tab 1 tab (Last dose: 08/12/2016 22:00) 10. folic acid 1 mg Oral tab 1 tab once daily 11. Senexon-S 8.6-50 mg oral tab 2 tabs once daily as needed - PMHx: GERD; Degenerative disc disease; cervical cancer; progressive bone deterioration; back and neck issues; - PSHx: neck surgery; tubal ; - Social history: Smoking status: Patient states former smoker of tobacco. No barriers to communication noted, The patient speaks fluent Romansh. - Family history: Not pertinent. - : The pt / caregiver states he / she is not on anticoagulants. Home medication list is obtained from the patient, [employer] import data, pill bottles. - Exposure Risk Screening:: None identified. 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 6 in. (167.64 cm) (R); Pain 8/10; 01:56 Pulse 98 MON; Pulse Ox 100% ; mlc 02:01 BP 119 / 57 (auto/); mlc 02:16 BP 132 / 59 (auto/); mlc 02:31 BP 124 / 82 (auto/); mlc 02:34 Pain 6/10; mlc 04:49 BP 114 / 68; Pulse 76; Resp 18; Temp 98.3; Pulse Ox 99% ; Pain 4/10; mlc 00:49 Body Mass Index 26.63 (74.84 kg, 167.64 cm) cln MDM: 01:14 traMADol 50 mg PO once ordered. cs11 01:15 CBC with Diff Ordered. EDMS 01:15 MED Profile Ordered. EDMS 01:15 Liver Profile Ordered. EDMS 01:15 Amylase Ordered. EDMS 01:15 Lipase Ordered. EDMS 01:15 Urinalysis: cath Ordered. EDMS 01:15 HCG,Serum Qualitative Ordered. EDMS 01:15 Urine Culture Ordered. EDMS 01:34 ketorolac 30 mg IVP once ordered. cs11 01:34 IV Saline Lock ordered. cs11 02:21 CBC with Diff Reviewed. cs11 02:21 MED Profile Reviewed. cs11 02:21 Liver Profile Reviewed. cs11 02:21 Lipase Reviewed. cs11 02:21 Urinalysis: cath Reviewed. cs11 02:21 Amylase Reviewed. cs11 02:21 HCG,Serum Qualitative Reviewed. cs11 02:26 Trimethoprim-Sulfamethoxazole 160 mg-800 mg (DS) 1 tabs PO once ordered. cs11 02:26 CT ABD & PELVIS: IV Contrast Only Ordered. EDMS 02:30 [facility] Payment Agreement was scanned into [employer] and attached to record. lja 02:30 Financial registration complete. lja 04:14 morphine 4 mg IVP once ordered. cs11 05:55 T-Sheet-- Draft Copy was scanned into [employer] and attached to record. hs2 14:21 PCR was scanned into [employer] and attached to record. gb 14:46 Rhythm Strip was scanned into [employer] and attached to record. gb Administered Medications: 01:28 Not Given (Patient Refused): traMADol 50 mg PO once mlc 01:49 Drug: ketorolac 30 mg [ketorolac 30 mg/mL (1 mL) injection solution (1 mL)] Route: IVP; mlc Site: left wrist; 02:34 Follow up: Pain 6/10 Adult; Response: Pain is decreased [facility] 02:34 Drug: Trimethoprim-Sulfamethoxazole 1 tabs [sulfamethoxazole 800 mg-trimethoprim 160 mg mlc tablet (1 tabs)] Route: PO; 04:25 Drug: morphine 4 mg [morphine 4 mg/mL intravenous cartridge (1 mL)] Route: IVP; Site: mlc left wrist; 04:49 Follow up: Response: Pain is decreased [facility] Signatures: Dispatcher [employer] EDDiana Cochran, Reg Reg gb Andrea Miller, DO cs11 Yajaira Gomez RN RN [facility] Arel, Mervat Peres, Reg Reg hs2 The chart was reviewed and I authenticate all verbal orders and agree with the evaluation and treatment provided.Corrections: (The following items were deleted from the chart) 01:52 00:52 Allergies: Ritalin (anxious); mlc mlc Attachments: 02:30 [facility] Payment Agreement asya 05:55 T-Sheet-- Draft Copy hs2 Chart Complete MTDD
== END 2016-08-13 04:51 | disposition home or self-care (01) ==
LOC: M ED 00:40
DX: N39.0 Urinary tract infection, site not specified (principal); K21.9 Gastro-esophageal reflux disease without esophagitis; M85.80 Other specified disorders of bone density and structure, unspecified site; M51.36 Other intervertebral disc degeneration, lumbar region; Z87.891 Personal history of nicotine dependence; Z85.41 Personal history of malignant neoplasm of cervix uteri; Z79.899 Other long term (current) drug therapy; Z88.8 Allergy status to other drugs, medicaments and biological substances
CPT/HCPCS: 74177; 80048; 80076; 81001; 82150; 83690; 84703; 85025; 87086; 96374; 96375; 99284; J1885; Q9967

== ENCOUNTER → 2017-01-03 | Outpatient (CLI) | payer MEDICARE, MEDICAID ==
--- NOTE | 2017-01-07 23:13 | ECWPNPC ---
PATIENT NAME: LUIS ACEVEDO : 1980 GENDER: FEMALE VISIT DATE: 01/03/2017 DISCHARGE DATE: 01/03/17 1045 VISIT LOCKED DATE TIME: PHYSICIAN: ODELL SIMS RESOURCE: ODELL SIMS REASON FOR APPOINTMENT 1. SHOULDER/NECK/BACK HISTORY OF PRESENT ILLNESS HISTORY OF PRESENT ILLNESS: PAIN THE PATIENT DESCRIBES THE PAIN... FALL RISK SCREENING: SCREENING :NO FALLS IN THE PAST YEAR TODAY'S VISIT: NOTES: RATES PAIN TODAY 8-9/10. LAST VISIT TO CLINIC WAS INPATIENT AND HAD LEFT SHOULDER INJECTION WHICH WAS HELPFUL TO DECREASE PAIN AND IMPROVE MOVEMENT. TODAY WORST PAIN IS IN LOW BACK. WITH RADIATION TO KNEES. ALSO HAS PAIN IN BOTH ANKLES. HAS NOT BEEN GETTING MUCH SLEEP. HAS LOST WEIGHT BOTH WITH RECENT ILLNESS AND DELIBERATE CALORIE RESTRICTION. IS S/P DX WITH CERVICAL CANCER - S/P CHEMO AND RADIATION X 2 WITH INTERNAL BEADS. CANCER STILL IN SITU - TO FOLLOW 01/09/17 AT [facility] IN JANUARY. (RREE MONTILLA) NO RECENT XRAYS TO SPINE/PELVIS.. CURRENT MEDICATIONS TAKING TYLENOL 325 MG TABLET 1 TABLET NEEDED ORALLY NEEDED, NOTES: UNSURE TAKING TRAMADOL HCL 50 MG TABLET 1 TABLET NEEDED ORALLY EVERY 6 HRS; MDD 3, NOTES: 07/10/16 0600 TAKING BACLOFEN 10 MG TABLET 1 TABLET WITH FOOD OR MILK ORALLY (UNSURE OF DOSE) THREE TIMES A DAYPRN, NOTES: 07/10/16 1000 TAKING LYRICA 75 MG CAPSULE 1 CAPSULE ORALLY TWICE A DAY, NOTES: 0500 TAKING AMITRIPTYLINE HCL 50 MG TABLET 1 TABLET ORALLY ONCE A DAY, NOTES: 2200 TAKING FOLIC ACID 400 MCG TABLET 1 TABLET ORALLY ONCE A DAY, NOTES: 07/10/16 0900 TAKING PROCHLORPERAZINE 10 MG TABLET 1 TABLET ORALLY THREE TIMES A DAY DISCONTINUED NYSTATIN 797123 UNIT/ML SUSPENSION 4 ML MOUTH/THROAT BID, NOTES: 07/09/16 1900 MEDICATION LIST REVIEWED AND RECONCILED WITH THE PATIENT PAST MEDICAL HISTORY BACK PAIN WITH PAIN INJECTIONS FROM PAIN CLINIC [facility] 2011 DEPRESSION CANCER OF CERVIX LEFT SHOULDER PAIN ALLERGIES REGLAN: SUICIDAL: SIDE EFFECTS REVIEW OF SYSTEMS CONSTITUTIONAL: ANY CHANGE IN YOUR MEDICAL CONDITION? NO . CHILLS NO . FEVER NO . INFECTION: DO YOU HAVE NEW INFECTIONS? NO . DO YOU HAVE HISTORY OF MRSA? NO . MUSCULOSKELETAL: ANY NEW PATTERNS OF PAIN OR NUMBNESS? NO . GASTROENTEROLOGY: ANY NEW CHANGE IN BOWEL CONTROL? NO . GENITOURINARY: ANY NEW CHANGE IN BLADDER CONTROL? NO . IS THERE A CHANCE YOU COULD BE ? NO . HEMATOLOGY/LYMPH: DO YOU TAKE ANY BLOOD THINNERS? (FOR EXAMPLE- COUMADIN, PLAVIX, AGGRENOX, PLATEL, PRADAXA, OR XARELTO) NO . WHEN WAS YOUR LAST DOSE? DATE: TIME: . NEUROLOGY: HAVE YOU FALLEN IN THE PAST 6 MONTHS? NO . ANY NEW EXTREMITY NUMBNESS OR WEAKNESS? NO . CARDIOLOGY: DO YOU HAVE A PACEMAKER OR DEFIBRILLATOR? NO . RESPIRATORY: HAVE YOU BEEN SICK IN THE PAST WEEK? NO . FEVER NO . FLU LIKE SYMPTOMS? NO . COUGH NO . INTEGUMENTARY: DO YOU HAVE ANY RASHES OR OPEN SORES? NO . ALLERGIC/IMMUNO: ARE YOU ALLERGIC TO SHELLFISH OR IV DYE? NO . ANY NEW ALLERGIES? NO . PSYCHIATRIC: DO YOU HAVE THOUGHTS OF HURTING YOURSELF OR SOMEONE ELSE? NO . ARE YOU ABUSED, NEGLECTED, OR IN AN UNSAFE ENVIRONMENT? NO . ENDOCRINOLOGY: ARE YOU DIABETIC? NO . OTHER: DO YOU NEED ANY PRESCRIPTIONS? YES . IF YES, PLEASE LIST: TRAMADOL, BACLOFEN,LYRICA,AMITRIPTYLIN,FOLIC ACID,PROCHLORPERAZINE . ANY NEW PROBLEMS WITH YOUR MEDICATIONS? NO . WHEN DID YOU LAST EAT? ____ . WHEN DID YOU LAST DRINK? ____ . WHAT DID YOU LAST DRINK? ____ . NAME OF PERSON DRIVING YOU HOME? ____ . DO YOU HAVE ANY OTHER QUESTIONS OR CONCERNS NO . REVIEWED BY: PROVIDER: ODELL ANN . VITAL SIGNS WT 162.6 LBS, HT 66 IN, BMI 26.24 INDEX, BP 122/85 MM HG, HR 81 /MIN, RR 16 /MIN, TEMP 98.1 F, OXYGEN SAT % 96%, NA INITIALS TL 0950. EXAMINATION GENERAL EXAMINATION: PSYCHOVERLY CHEERFUL , ALERT , ORIENTED X 3 . LUNGS:CLEAR TO AUSCULTATION BILATERALLY. HEART:HEART RATE REGULAR. MUSCULOSKELETAL:PALPATION: POSITIVE FOR PAIN OVER L/S SPINE. POSITIVE FOR PAIN OVER LUMBOSACRAL PARSPINALS. TENDER TO PALPATION BILATERALLY OVER SACRAL ILIAC JOINTS. SLOW TO RISE TO STANDING POSITION. POSTURE UPRIGHT. GAIT NONANTALGIC.. ASSESSMENTS LUMBAR DISC DISPLACEMENT WITHOUT MYELOPATHY - M51.26 (PRIMARY) PAIN IN LEFT SHOULDER - M25.512 OTHER CHRONIC PAIN - G89.29 MYALGIA - M79.1 LUMBAR RADICULOPATHY - M54.16 TREATMENT LUMBAR DISC DISPLACEMENT WITHOUT MYELOPATHY START PROCHLORPERAZINE MALEATE TABLET, 10 MG, 1 TABLET, ORALLY, Q 6 HRS PRN NAUSEA, 30 DAY(S), 50, REFILLS 2 REFILL TRAMADOL HCL TABLET, 50 MG, 1 TABLET NEEDED, ORALLY, EVERY 6 HRS; MDD 3, 30 DAY(S), 90, REFILLS 0 REFILL BACLOFEN TABLET, 10 MG, 1 TABLET WITH FOOD OR MILK, ORALLY (UNSURE OF DOSE), THREE TIMES A DAYPRN, 30 DAY(S), 90, REFILLS 3 REFILL LYRICA CAPSULE, 75 MG, 1 CAPSULE, ORALLY, TWICE A DAY, 30 DAY(S), 60 CAPSULE, REFILLS 2, NOTES: 0500 REFILL AMITRIPTYLINE HCL TABLET, 50 MG, 1 TABLET, ORALLY, ONCE A DAY, 30 DAY(S), 30, REFILLS 1, NOTES: 2200 REFILL FOLIC ACID TABLET, 400 MCG, 1 TABLET, ORALLY, ONCE A DAY, 30 DAY(S), 30 TABLET, REFILLS 5, NOTES: 07/10/16 0900 [facility] MRI SPINE, L.S. WITHOUT [id number],SUSAN M 01/03/2017 10:39:22 AM > INCREASED PAIN, RADICULOPATHY NOTES: RESTART MEDS SLOWLY. PROCEDURE CODES FA211 ESTABILISHED PATIENT [facility] CHARGE G8783 BP SCR PRFRM RCMDD DEFIND SCR INTVL G8730 PAIN ASSESS POS TOOL F/U PLAN DOC 3016F PT SCRND UNHLTHY [place] USE 1124F ACP DISCUSS-NO DSCNMKR DOCD 1036F TOBACCO NON-USER G8427 DOC MEDS VERIFIED W/PT OR RE G8420 BMI<30 AND >=22 CALC & DOCU 3288F FALL RISK ASSESSMENT DOCD DISPOSITION & COMMUNICATION FOLLOW UP 1 MONTH (REASON: CHECK AUTH FOR LUMBAR MRI) ELECTRONICALLY SIGNED BY MARIA G JORDAN ON 01/07/2017 AT 02:21 PM EDT DISCLAIMER : THIS IS A VISIT SUMMARY EXTRACTED FROM THE [facility]. IT IS NOT A COPY OF THE [employer] PROGRESS NOTE. MTDD
== END ==
LOC: M PAIN 09:40
PROVIDERS: ATTEND Nurse Practitioner Family
DX: M51.26 Other intervertebral disc displacement, lumbar region (principal); M25.512 Pain in left shoulder; G89.29 Other chronic pain; M79.1 Myalgia; M54.16 Radiculopathy, lumbar region; Z79.891 Long term (current) use of opiate analgesic; Z79.899 Other long term (current) drug therapy; Z88.8 Allergy status to other drugs, medicaments and biological substances

== ENCOUNTER → 2017-01-15 | Outpatient (CLI) | payer MEDICARE, MEDICAID ==
--- NOTE | 2017-01-16 09:08 | REP ---
PET/CT: History: Restaging carcinoma of the cervix. Comparisons: Comparison PET/CT study June 06, 2016. Comparison CT abdomen and pelvis August 13, 2016. TECHNIQUE: 50 minutes following the intravenous injection of a 10.2 mCi dose of F-18 FDG, three-dimensional PET scintigraphy is acquired from the skull base to the proximal thighs. Triplanar noncontrast CT scanning is acquired through the same anatomic range for attenuation correction, and image registration with scan parameters optimized to minimize radiation exposure to the patient. PET scintigraphy and CT datasets were fused and displayed on a workstation with multiplanar and projection display capability. PET/CT Findings: The head and neck soft tissues remain unremarkable. No abnormal hypermetabolic uptake is seen within the thorax. No abnormal hepatic or splenic FDG accumulation is seen. No abnormal adrenal uptake is observed. No retroperitoneal or pelvic tom uptake is seen. Uptake is seen in the right ureter. The uterus and the cervical mass have regressed post radiation therapy in size. The bladder appears to extend posteriorly a little more than previously most likely post-treatment change. The hypermetabolic soft tissue mass seen on the June 06, 2016 prior study is no longer apparent. The IUD has been removed in the interval since the prior study. There are two metallic densities consistent with fiducial markers at the level of the cervix in the midline. No other abnormal hypermetabolic uptake is seen. Impression: The cervical mass and the size of the uterus have regressed post-treatment. No abnormal hypermetabolic uptake is seen. Signed by Mike Hughes MD 01/16/2017 01:32 P
== END ==
LOC: M PLARAD 11:42
PROVIDERS: ATTEND Radiology Radiation Oncology
DX: C53.8 Malignant neoplasm of overlapping sites of cervix uteri (principal)
CPT/HCPCS: 78815; A9552

== ENCOUNTER → 2017-01-16 | Outpatient (CLI) | payer MEDICARE, MEDICAID ==
--- NOTE | 2017-01-16 14:58 | REP ---
MR LUMBAR SPINE WITHOUT CONTRAST: HISTORY: Leg pain. COMPARISON: 09/01/2015 Decreased signal intensity on T2-weighted images is present in the L5-S1 intervertebral disc. The disc is decreased in height. These findings are consistent with disc degeneration. There is no disc bulge or herniation at the L1-2 and L2-3 levels. The nerves exit the neural foramina without compression. A diffuse disc bulge is present at the L3-4 level. There is minimal compression of the thecal sac. There is hypertrophy of the posterior articulating facets. The L3 nerves exit the neural foramina without compression. A diffuse disc bulge is present at the L4-5 level. There is minimal compression of the thecal sac. There is hypertrophy of the posterior articulating facets. The L4 nerves exit the neural foramina without compression. A 4 mm cyst is present posterior to the right L4-5 facet joint. A diffuse disc bulge and small central disc protrusion are present at the L5-S1 level. The disc protrusion is slightly increased in size. There is minimal compression of the thecal sac. There is hypertrophy of the posterior articulating facets. The L5 nerves exit the neural foramina without compression. The conus medullaris is normal in appearance terminating at the level of the L1-2 intervertebral disc. Normal signal intensity is present in the lumbar vertebral bodies. IMPRESSION: 1. Diffuse disc bulges at the L3-4 and L4-5 levels with minimal thecal sac compression. 2. Diffuse disc bulge and small central disc protrusion at the L5-S1 level with minimal thecal sac compression. The disc protrusion is slightly increased in size. There is no other significant change. Signed by Luis Miguel Hill MD 01/16/2017 03:00 P
== END ==
LOC: M RAD 12:41
PROVIDERS: ATTEND Nurse Practitioner Family
DX: M51.26 Other intervertebral disc displacement, lumbar region (principal)

== ENCOUNTER 2017-02-28 13:24 | Inpatient (IN) | payer MEDICARE, MEDICAID ==
[~2017-02-28] VITALS: Ht 167.6 cm; Wt 77.5 kg
[~2017-02-28 13:24] MED LIST changes: -FOLI1TAB2 PO; +FOLI1TAB4 PO; +KEFL500C17 PO; -KEFL500C7 PO; +LOPE2CAP PO; -LOPE2TAB PO; -SENN-15 PO; +SENN-3 PO
[2017-02-28] MEDS ORDERED: NS 500 ML IV ONE (14:45)
[2017-02-28] MEDS ORDERED: METOPROLOL 5 MG/5 ML VIAL IV STA (14:46)
[2017-02-28] MEDS ORDERED: NS 1,000 ML IV ONE (15:30)
[2017-02-28 15:33] LABS: BASO % 0.2 % (0.0-1.0); EOS # 0.2 K/mm3 (0.0-0.50); EOS % 3.1 % (0.0-3.0); LARGE UNSTAINED CELL # 0.1 K/mm3 (0.0-0.4); LARGE UNSTAINED CELL % 1.4 % (0.0-4.0); LYMPH # 0.6 K/mm3 (1.5-4.5); LYMPH % 7.1 % (24.0-44.0); MEAN CORPUSCULAR HEMOGLOBIN 30.5 pg (27.0-33.0); MEAN CORPUSCULAR HGB CONC 34.8 g/dl (32.0-36.5); MEAN CORPUSCULAR VOLUME 87.6 fl (80.0-96.0); MONO # 0.3 K/mm3 (0.0-0.8); MONO % 4.5 % (0.0-5.0); NEUTROPHILS # 5.7 K/mm3 (1.8-7.7); NEUTROPHILS % 83.7 % (36.0-66.0); PLATELET COUNT, AUTOMATED 312 k/mm3 (150-450); RED CELL DISTRIBUTION WIDTH 13.5 % (11.5-14.5); WHITE BLOOD COUNT 6.8 K/mm3 (4.0-10.0)
[2017-02-28 15:48] LABS: INR 1.08
[2017-02-28 16:04] LABS: MAGNESIUM LEVEL 2.2 MG/DL (1.8-2.4); PHOSPHORUS LEVEL 4.1 MG/DL (2.5-4.9)
[2017-02-28 16:06] LABS: ALBUMIN/GLOBULIN RATIO 0.67 (1.00-1.93); ALKALINE PHOSPHATASE 111 U/L (45-117); ALT/SGPT 33 U/L (12-78); ANION GAP 8 MEQ/L (8-16); BILIRUBIN,DIRECT < 0.1 MG/DL (0.0-0.2); BILIRUBIN,TOTAL 0.4 MG/DL (0.2-1.0); BLOOD UREA NITROGEN 16 MG/DL (7-18); CALCIUM LEVEL 8.7 MG/DL (8.5-10.1); CARBON DIOXIDE LEVEL 28 MEQ/L (21-32); CHLORIDE LEVEL 103 MEQ/L (98-107); CREATININE FOR GFR 0.84 MG/DL (0.55-1.02); FREE T4 1.04 NG/DL (0.76-1.46); GLOMERULAR FILTRATION RATE > 60.0 (>60); GLUCOSE, FASTING 105 MG/DL (70-105); SODIUM LEVEL 139 MEQ/L (136-145); TOTAL PROTEIN 7.5 GM/DL (6.4-8.2)
[2017-02-28 16:11] LABS: CONTROL LINE HCG INT CTR LINE PRESENT
[2017-02-28 16:14] LABS: AST/SGOT 7 U/L (15-37)
--- NOTE | 2017-02-28 17:21 | REP ---
Chest two views HISTORY: Chest pain Comparison: 05/14/2014 The lungs are clear. The heart is normal in size. The pulmonary vasculature is normal in appearance. The bony structure is intact. IMPRESSION: No acute disease. Signed by Luis Miguel Hill MD 02/28/2017 05:13 P
[2017-02-28] MEDS ORDERED: ESTR1CRE PV (18:17)
[2017-02-28] MEDS ORDERED: FOLI400T PO (18:17)
[2017-02-28] MEDS ORDERED: BACL10TA2 PO (18:17)
[2017-02-28] MEDS: NS 1,000 ML IV SCH (19:50)
--- NOTE | 2017-02-28 20:06 | HPEPDOC ---
General Date of Admission Feb 28, 2017 at 19:50 Chief Complaint The patient is a 36-year-old female Presented to the ER with complaints of light headedness and shortness of breath that progressed to chest pain this morning. History of Present Illness Patient is a 36 year old female with a PMHx of Cervical CA (s/p Chemotherapy and Radiation), Insomnia, Chronic back pain (2/2 herniated disks and neck surgery), Insomnia and GERD. Patient presented to the ER after she had complaints of light headedness for 1 week duration associated with shortness of breath. She notes that she has been having what she describes as feelings of about to pass out / blackout. She denies any loss of consciousness. She notes that when she gets up or walks it worsens her symptoms. She notes that she does short of breath with exertion. She denied any cough or fever at home. Reports chills and sweats at home. She notes that today upon waking up she has had chest pain that occurs throughout her chest on both sides. Described as a 7/10, burning like pain, no alleviating factors, but aggravated with taking deep breaths. She denies any nausea, vomiting, abdominal pain, constipation, diarrhea or dysuria. She reports a poor appetite and decreased oral intake. Home Medications Scheduled Amitriptyline HCl (Amitriptyline HCl) 50 Mg Tab, 50 MG PO QHS, (Reported) Baclofen (Baclofen) 10 Mg Tab, 10 MG PO TID, (Reported) Estradiol (Estrace) 42.5 Gm Cream, 1 DOSE PV 2XW, (Reported) 1/2 applicatorful dose, tuesdays, fridays Folic Acid (Folic Acid) 400 Mcg Tab, 400 MCG PO DAILY, (Reported) Pregabalin (Lyrica) 75 Mg Cap, 75 MG PO BID, (Reported) Scheduled PRN Calcium Carbonate (Tums) 500 Mg Chw, 500 MG PO QID PRN for HEARTBURN/INDIGESTION , (Reported) Allergies Coded Allergies: Methylphenidate (Unverified Allergy, Unknown, ANXIOUS, 07/03/16) Metoclopramide (Verified Adverse Reaction, Intermediate, DEPRESSION, ALTERED MENTAL STATE, 05/20/14) Prednisone (Verified Adverse Reaction, Intermediate, ORAL STEROIDS CAUSE DEPRESSION, 11/13/12) Past Medical History Medical History Cervical CA (s/p Chemotherapy and Radiation; Follows with Dr. Miller and Dr. Hurtado; s/p Dr. Morris and Dr. Mancilla), Insomnia, Chronic back pain (2/2 herniated disks and neck surgery), Insomnia and GERD. 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 Review of Symptoms Other systems Constitutional: Reports decreased appetite, or recent trauma Eyes: No visual changes or eye pain Ears, Nose, Throat: Denies nose bleeds, or difficulty swallowing Cardiovascular: Positive chest pain, No sweating or orthopnea Respiratory: Denies cough or wheezing, Positive shortness of breath GI: Roni nausea, vomiting, abdominal pain, diarrhea or constipation : Denies pain with urination or frequency Musculoskeletal: Denies joint pain or swelling Neuro / Psych: Denies muscle weakness or sensory loss Skin: No skin rashes noted All other review of systems negative; otherwise stated in history of present illness Vital Signs - Vitals: BP 94/60, HR 98, RR 16, Sat 98%RA, Temp 98.9F - General: Lying in bed, No acute distress, Speaking in full sentences, AAOx3 - HEENT: NC, AT, PERRLA, EOMI - CVS: Tachycardic, Regular, +S1S2 - Lungs: Fair air entry bilaterally, Clear to auscultation, No wheezing / rales / rhonchi - Abdomen: Soft, Non-distended, Non-tender, + Bowel sounds x 4 - Extremities: No lower extremity edema, No calf tenderness - Neuro: No focal motor or sensory deficit - Skin: No visible rashes Laboratory Data Labs 24H Laboratory Tests 2 02/28/17 14:51: White Blood Count 6.8, Red Blood Count 4.11, Hemoglobin 12.5, Hematocrit 36.0, Mean Corpuscular Volume 87.6, Mean Corpuscular Hemoglobin 30.5, Mean Corpuscular Hemoglobin Concent 34.8, Red Cell Distribution Width 13.5, Platelet Count 312, Neutrophils (%) (Auto) 83.7H, Lymphocytes (%) (Auto) 7.1L, Monocytes (%) (Auto) 4.5, Eosinophils (%) (Auto) 3.1H, Basophils (%) (Auto) 0.2, Neutrophils # (Auto) 5.7, Lymphocytes # (Auto) 0.6L, Monocytes # (Auto) 0.3, Eosinophils # (Auto) 0.2, Basophils # (Auto) 0.0, Large Unclassified Cells % 1.4 , Large Unclassified Cells # 0.1, Prothrombin Time 14.2, Prothromb Time International Ratio 1.08, Activated Partial Thromboplast Time 31.7, Anion Gap 8 , Glomerular Filtration Rate > 60.0, Calcium Level 8.7, Phosphorus Level 4.1, Magnesium Level 2.2, Aspartate Amino Transf (AST/SGOT) 7L, Alanine Aminotransferase (ALT/SGPT) 33, Alkaline Phosphatase 111, Total Bilirubin 0.4, Direct Bilirubin < 0.1, Total Creatine Kinase 33, Creatine Kinase MB 1.0, Creatine Kinase MB Relative Index 3.03, Troponin I < 0.02, B-Type Natriuretic Peptide 474H, Total Protein 7.5, Albumin 3.0L, Albumin/Globulin Ratio 0.67L, Thyroid Stimulating Hormone (TSH) 0.966, Free Thyroxine 1.04, Human Chorionic Gonadotropin, Qual INDETERM., Human Chorionic Gonadotropin, Quant 4 CBC/BMP Laboratory Tests 02/28/17 14:51 Red Blood Count 4.11, Mean Corpuscular Volume 87.6, Mean Corpuscular Hemoglobin 30.5, Mean Corpuscular Hemoglobin Concent 34.8, Red Cell Distribution Width 13.5 , Neutrophils (%) (Auto) 83.7 H, Lymphocytes (%) (Auto) 7.1 L, Monocytes (%) ( Auto) 4.5, Eosinophils (%) (Auto) 3.1 H, Basophils (%) (Auto) 0.2, Neutrophils # (Auto) 5.7, Lymphocytes # (Auto) 0.6 L, Monocytes # (Auto) 0.3, Eosinophils # (Auto) 0.2, Basophils # (Auto) 0.0 Plan / VTE VTE Prophylaxis Ordered?: Yes Plan Plan Light headedness / Dizziness / Pre-syncope likely 2/2 orthostatic hypotension - Etiology unclear; possibly 2/2 poor oral intake - Physical with positive orthostatic vital signs - Will check orthostatic vital signs q8h - Will hold amitriptyline - c/w IV fluid hydration Tachycardia possibly 2/2 hypo-volemia; possibly 2/2 pulmonary embolism - Presented with atypical chest pain - Physical unrevealing; other than positive orthostatic vital signs - EKG reviewed: appears regular, P-wave difficult to appreciate - Discussed with Dr. Gold; appears like junctional tachycardia - Will get 2D-ECHO in AM to evaluate - Will get CTA chest to r/o PE - Will trend cardiac enzymes - c/w IV fluid for now Cervical CA Stage IV - s/p Chemotherapy and Radiation; Follows with Dr. Miller and Dr. Hurtado; - s/p Dr. Morris for chemotherapy - s/p Dr. Mancilla for radiation Insomnia - Will hold Amitriptyline (re: orthostatic hypotension) Chronic back pain - 2/2 herniated disks and neck surger - c/w Baclofen and Pregabalin GERD - Will start Protonix DVT prophylaxis - Will start Lovenox (re: Stage IV Cervical CA) FATOUMATA HOOKS MD Feb 28, 2017 20:05
[2017-02-28] MEDS ORDERED: VILAZODONE 20MG TABLET (VIIBRYD) PO SCH (21:00)
[2017-02-28] MEDS ORDERED: AMITRIPTYLINE 50 MG TAB PO SCH (21:00)
[2017-02-28] MEDS ORDERED: ISOVUE-370 76% 100ML VIAL (Q9967) As Ordered ONE (21:07)
--- NOTE | 2017-02-28 23:10 | REPUSA ---
CT angiogram of the chest Clinical statement: Chest pain and shortness of breath. Technique: Multiple axial CT images were obtained from the thoracic inlet through the upper abdomen a fter a bolus administration of nonionic intravenous contrast. Coronal and sagittal reconstructions we re also obtained. No comparison is available. Findings: The pulmonary arteries are well-opacified with contrast, with no intraluminal filling defec ts to suggest embolism. The thoracic aorta is unremarkable. Thyroid gland is within normal limits. Th ere is no thoracic lymphadenopathy. There are no pericardial or pleural effusions. The lungs are casa r. Limited imaging of the upper abdomen is unremarkable. There are no suspicious osseous lesions. Impression: Unremarkable CT examination of the chest. No evidence of pulmonary embolism.
[2017-02-28] MEDS: BACLOFEN 10 MG TAB PO SCH (23:32)
[2017-02-28] MEDS: PREGABALIN 75 MG CAP(LYRICA) PO SCH (23:33)
[2017-02-28 23:59] VITALS: BP 131/79
[2017-03-01] VITALS (9 sets, daily range): BP systolic 101–131; BP diastolic 57–79
[2017-03-01] MEDS: CALCIUM CARBONATE 500 MG CHEW U/D PO PRN (01:13)
[2017-03-01] MEDS: ACETAMINOPHEN TAB 650MG DOSE (2X325MG) PO PRN ×3 (02:48→21:50)
[2017-03-01 05:57] LABS: BASO % 0.1 % (0.0-1.0); EOS # 0.2 K/mm3 (0.0-0.50); EOS % 3.9 % (0.0-3.0); LARGE UNSTAINED CELL # 0.1 K/mm3 (0.0-0.4); LARGE UNSTAINED CELL % 0.9 % (0.0-4.0); LYMPH # 0.5 K/mm3 (1.5-4.5); LYMPH % 7.2 % (24.0-44.0); MEAN CORPUSCULAR HEMOGLOBIN 30.2 pg (27.0-33.0); MEAN CORPUSCULAR HGB CONC 34.4 g/dl (32.0-36.5); MEAN CORPUSCULAR VOLUME 87.7 fl (80.0-96.0); MONO # 0.2 K/mm3 (0.0-0.8); MONO % 3.7 % (0.0-5.0); NEUTROPHILS # 5.5 K/mm3 (1.8-7.7); NEUTROPHILS % 84.2 % (36.0-66.0); PLATELET COUNT, AUTOMATED 281 k/mm3 (150-450); RED CELL DISTRIBUTION WIDTH 13.5 % (11.5-14.5); WHITE BLOOD COUNT 6.5 K/mm3 (4.0-10.0)
[2017-03-01 06:16] LABS: ALBUMIN 2.5 GM/DL (3.2-5.2); ALBUMIN/GLOBULIN RATIO 0.64 (1.00-1.93); ALKALINE PHOSPHATASE 101 U/L (45-117); ALT/SGPT 30 U/L (12-78); ANION GAP 8 MEQ/L (8-16); AST/SGOT 14 U/L (15-37); BILIRUBIN,TOTAL 0.2 MG/DL (0.2-1.0); BLOOD UREA NITROGEN 12 MG/DL (7-18); CALCIUM LEVEL 8.5 MG/DL (8.5-10.1); CARBON DIOXIDE LEVEL 25 MEQ/L (21-32); CHLORIDE LEVEL 107 MEQ/L (98-107); CREATININE FOR GFR 0.85 MG/DL (0.55-1.02); GLOMERULAR FILTRATION RATE > 60.0 (>60); GLUCOSE, FASTING 195 MG/DL (70-105); MAGNESIUM LEVEL 1.9 MG/DL (1.8-2.4); POTASSIUM SERUM 3.8 MEQ/L (3.5-5.1); SODIUM LEVEL 140 MEQ/L (136-145); TOTAL PROTEIN 6.4 GM/DL (6.4-8.2)
[2017-03-01] MEDS: NS 1,000 ML IV SCH (07:37)
[2017-03-01] MEDS: BACLOFEN 10 MG TAB PO SCH ×3 (07:58→21:49)
[2017-03-01] MEDS: PANTOPRAZOLE 40MG TAB (PROTONIX) PO SCH (07:59)
[2017-03-01] MEDS: PREGABALIN 75 MG CAP(LYRICA) PO SCH ×2 (07:59→21:49)
[2017-03-01] MEDS: ENOXAPARIN 40 MG/0.4 ML SYRINGE (J1650) SC SCH (08:01)
[2017-03-01] MEDS ORDERED: KETOROLAC TROMETHAMINE 10 MG TAB PO ONE (13:15)
--- NOTE | 2017-03-01 14:19 | IPNPDOC ---
Text Note Date of Service The patient was seen on 03/01/17. NOTE Subjective: Patient is a 36 year old female with a PMHx of Cervical CA (s/p Chemotherapy and Radiation), Insomnia, Chronic back pain (2/2 herniated disks and neck surgery), Insomnia and GERD. She presented to the ER with light- headedness for 4 days, then chest pain for 1 day. She was found to have junctional tachycardia in the ER and positive orthostatic vital signs. She was admitted to PCU and given IV fluid hydration. Cardiology (Dr. Gold) was contacted for further evaluation. Patient was seen and examined at the bedside. Currently she notes that her dizziness has improved significantly. She still reports some on and off chest discomfort. Denies SOB or palpitations. Objective: Vitals (See below) General: Lying in bed, no acute distress, comfortable, AAOx3 HEENT: NC, AT CVS: Tachycardic, Regular, +S1S2 Lungs: Fair air entry b/l, -w/r/r Abdomen: Soft, ND, NT, +BSx4 Extremities: - Edema, - Calf tenderness Assessment and plan: 1. Light headedness / Dizziness / Pre-syncope - likely 2/2 orthostatic hypotension - possibly 2/2 poor oral intake - Reports improvement in dizziness; but not resolved - Physical with positive orthostatic vital signs on admission; has been normalizing - c/w orthostatic vital signs q8h - Hold amitriptyline - c/w IV fluid hydration 2. Tachycardia - possibly 2/2 hypovolemia - Presented with atypical chest pain - Physical unrevealing; other than positive orthostatic vital signs - EKG reviewed: appears regular, P-wave difficult to appreciate - Discussed with Dr. Gold; appears like junctional tachycardia - Cardiac enzymes negative x 3 sets - CTA chest 02/28: negative for PE - ECHO to be performed today - c/w IV fluid for now 3. Cervical CA - Stage IV - s/p Chemotherapy and Radiation; Follows with Dr. Miller and Dr. Hurtado; - s/p Dr. Morris for chemotherapy - s/p Dr. Mancilla for radiation 4. Insomnia - Will hold Amitriptyline (re: orthostatic hypotension) 5. Chronic back pain - 2/2 herniated disks and neck surger - c/w Baclofen and Pregabalin 6. GERD - c/w Protonix 7. DVT prophylaxis - c/w Lovenox (re: Stage IV Cervical CA) VS,Fishbone, I+O VS, Fishbone, I+O Laboratory Tests 02/28/17 14:51 Red Blood Count 4.11, Mean Corpuscular Volume 87.6, Mean Corpuscular Hemoglobin 30.5, Mean Corpuscular Hemoglobin Concent 34.8, Red Cell Distribution Width 13.5 , Neutrophils (%) (Auto) 83.7 H, Lymphocytes (%) (Auto) 7.1 L, Monocytes (%) ( Auto) 4.5, Eosinophils (%) (Auto) 3.1 H, Basophils (%) (Auto) 0.2, Neutrophils # (Auto) 5.7, Lymphocytes # (Auto) 0.6 L, Monocytes # (Auto) 0.3, Eosinophils # (Auto) 0.2, Basophils # (Auto) 0.0 03/01/17 05:24 Red Blood Count 3.76 L, Mean Corpuscular Volume 87.7, Mean Corpuscular Hemoglobin 30.2, Mean Corpuscular Hemoglobin Concent 34.4, Red Cell Distribution Width 13.5, Neutrophils (%) (Auto) 84.2 H, Lymphocytes (%) (Auto) 7.2 L, Monocytes (%) (Auto) 3.7, Eosinophils (%) (Auto) 3.9 H, Basophils (%) ( Auto) 0.1, Neutrophils # (Auto) 5.5, Lymphocytes # (Auto) 0.5 L, Monocytes # ( Auto) 0.2, Eosinophils # (Auto) 0.2, Basophils # (Auto) 0.0, Calcium Level 8.5, Aspartate Amino Transf (AST/SGOT) 14 L, Alanine Aminotransferase (ALT/SGPT) 30, Alkaline Phosphatase 101, Total Bilirubin 0.2, Total Protein 6.4, Albumin 2.5 L Vital Signs Date Time Temp Pulse Resp B/P (MAP) Pulse Ox O2 Delivery O2 Flow Rate FiO2 03/01/17 08:23 97.3 110 18 122/60 (80) 97 Room Air I&O- Last 24 Hours up to 6 AM 03/01/17 05:59 Intake Total 2080 ml Output Total 1350 ml Balance 730 ml FATOUMATA HOOKS MD Mar 01, 2017 14:19
[2017-03-01] MEDS ORDERED: ENTER DRUG NAME HERE (PATIENT'S OWN MED) PO SCH (21:00)
--- NOTE | 2017-03-01 21:45 | CR ---
DATE OF CONSULTATION: 02/28/2017 DATE OF DICTATION: 03/01/2017 REFERRING PROVIDER: Dr. Veena Stevens. REASON FOR CONSULTATION: Abnormal electrocardiogram (EKG), low blood pressure. HISTORY OF PRESENT ILLNESS: A 36-year-old woman came to the hospital because she has been having recurrent episodes of lightheadedness, shortness of breath, and a sensation she is going to pass out. Upon arrival at the emergency room (ER), she was found to have an abnormal EKG, reported to be probably atrial fibrillation. Her vital signs revealed a blood pressure of 105/70. Cardiology consult was called because of the abnormal EKG. When I saw Ms. Tammy Mcdonald in the ER last evening, she was lying supine in bed in no acute distress at rest. Her mother was at bedside. She has no history of hypertension, hyperlipidemia, diabetes mellitus, kidney disease, thyroid disorders, lung disease. She, however, was diagnosed with cervical cancer and has had both chemotherapy and radiotherapy for that problem, and she goes to hematology/oncology in [facility] and also she goes to [place], [place]. She also has degenerative disc disease, gastroesophageal reflux disease (GERD), and insomnia. She denies any chest pain, but does complain of shortness of breath with activities and rapid heart rate with minimal activities. She has no pedal edema, orthopnea. She has a cough but denies any hemoptysis. MEDICATIONS AT HOME: Prior to coming to the hospital: - amitriptyline 50 mg by mouth before food - baclofen 10 mg by mouth three times a day - Estrace 42.5 gram cream as directed - folic acid 400 mcg by mouth daily - Lyrica 75 mg by mouth twice a day - calcium carbonate she takes as needed PAST SURGICAL HISTORY: Positive for cervical discectomy, ectopic . FAMILY HISTORY: Positive for skin cancer, hypertension and diabetes, her father. SOCIAL HISTORY: The patient has a long history of smoking and currently she smokes less than one pack per day of cigarettes. She denies any ethyl alcohol (EtOH) abuse. She is a social drinker. She lives with her children. At this present time, she is not working. ALLERGIES: PREDNISONE, METOCLOPRAMIDE, AND METHYLPHENIDATE. ADVANCE DIRECTIVES: Patient is a full code. PHYSICAL EXAMINATION: On physical examination, the patient is alert and oriented in no acute distress at rest. HEENT: Atraumatic. NECK: Supple. No jugular venous distention (JVD) or carotid bruits. LUNGS: Clear bilaterally without any wheezing or crackles. HEART: Examination revealed normal S1, S2 without gallops. The point of maximum impulse (PMI) is not displaced. There is no rub. I could not appreciate any murmurs. ABDOMEN: Soft and nontender. Bowel sounds active. EXTREMITIES: Reveal no pedal edema. NEUROLOGIC: Grossly is negative for focal deficit. LABORATORY DATA: CBC on 02/28/2017, revealed a WBC of 6.8, hemoglobin 12.5, hematocrit 36.0, and platelets 312,000. BMP revealed a sodium of 139, potassium 4.0, chloride 103, CO2 28, BUN 16, creatinine 0.84, GFR greater than 60, fasting glucose 105, calcium 8.7. Liver enzymes revealed a total bilirubin of 0.4, direct bilirubin less than 0.1, AST 7, ALT 33, alkaline phosphatase 111. Total protein 7.5, albumin 3.0. Thyroid function test reveal a TSH of 0.96, and a free T4 of 1.04. BNP is 474. Troponin was 0.02. Serum magnesium was 2.2. Serum phosphorus was 4.1. HCG was indeterminate, qualitatively. HCG quantitatively was four. PT was 14.2, with an INR of 1.08 and a PTT of 31.7. Serum D-dimer was 391.2. IMAGING: Chest x-ray on 02/28/2017, revealed no acute disease process. No cardiomegaly. CT angiogram of the chest looking for pulmonary embolism was unremarkable. EKG on admission 02/28/2017, at 13:57:18, revealed a narrow complex tachycardia at 107 beats per minute, nonspecific ST-T abnormalities. At one point this seems to be a junctional tachycardia, and in the last three beats, it seems to be sinus rhythm with first-degree AV block. Repeat electrocardiogram on the same day at 14:30:43, did not reveal any significant changes. IMPRESSION: Abnormal EKG, mild tachycardia in this 36-year-old woman with complaints of dizziness, lightheadedness, near syncope, and shortness of breath. Her EKG was reviewed and it could be just some sinus tachycardia with first-degree block versus a junctional tachycardia. The plan is to admit her and I agree, and we will continue with hydration. She will have an echocardiogram done on 03/01/2017 , it will be reviewed, then further recommendations will be given. In the meantime , she will be monitored. It was a pleasure to participate in the care of Ms. Tammy Mcdonald for her underlying cardiac condition. I will continue to monitor her along with you as needed while in the hospital. Please do not hesitate to call if any questions. MIGNON
[2017-03-02] VITALS (8 sets, daily range): BP systolic 94–119; BP diastolic 57–76
[2017-03-02 06:35] LABS: BASO % 0.1 % (0.0-1.0); EOS # 0.2 K/mm3 (0.0-0.50); EOS % 4.2 % (0.0-3.0); LARGE UNSTAINED CELL % 0.7 % (0.0-4.0); LYMPH # 0.4 K/mm3 (1.5-4.5); LYMPH % 6.6 % (24.0-44.0); MEAN CORPUSCULAR HGB CONC 33.9 g/dl (32.0-36.5); MEAN CORPUSCULAR VOLUME 88.4 fl (80.0-96.0); MONO # 0.3 K/mm3 (0.0-0.8); MONO % 4.9 % (0.0-5.0); NEUTROPHILS # 4.6 K/mm3 (1.8-7.7); NEUTROPHILS % 83.5 % (36.0-66.0); PLATELET COUNT, AUTOMATED 240 k/mm3 (150-450); RED CELL DISTRIBUTION WIDTH 13.7 % (11.5-14.5); WHITE BLOOD COUNT 5.4 K/mm3 (4.0-10.0)
--- NOTE | 2017-03-02 06:46 | REP ---
CT CERVICAL SPINE: CT cervical spine is performed in the axial plane with sagittal and coronal reconstruction images. Comparison made with prior study of 07/07/2016. There is no compression fracture or malalignment. Patient has had prior anterior cervical discectomy and fusion at C5-C7. Heterogeneous appearance of the bone grafts at the C5-6 and C6-7 disc spaces is unchanged since prior study. No abnormality is seen in the spinal canal. IMPRESSION: No fracture or dislocation. The appearance of the postsurgical findings at the site of the anterior cervical discectomy and fusion at C5-C7 is unchanged since the prior exam of 07/07/2016. Signed by Clint Castrejon MD 03/02/2017 03:18 P
[2017-03-02 06:54] LABS: ALBUMIN 2.4 GM/DL (3.2-5.2); ALBUMIN/GLOBULIN RATIO 0.65 (1.00-1.93); ALKALINE PHOSPHATASE 106 U/L (45-117); ALT/SGPT 90 U/L (12-78); ANION GAP 7 MEQ/L (8-16); AST/SGOT 72 U/L (15-37); BILIRUBIN,TOTAL 0.2 MG/DL (0.2-1.0); BLOOD UREA NITROGEN 8 MG/DL (7-18); CALCIUM LEVEL 8.3 MG/DL (8.5-10.1); CARBON DIOXIDE LEVEL 27 MEQ/L (21-32); CHLORIDE LEVEL 105 MEQ/L (98-107); CREATININE FOR GFR 0.73 MG/DL (0.55-1.02); GLOMERULAR FILTRATION RATE > 60.0 (>60); GLUCOSE, FASTING 110 MG/DL (70-105); MAGNESIUM LEVEL 1.9 MG/DL (1.8-2.4); POTASSIUM SERUM 3.7 MEQ/L (3.5-5.1); SODIUM LEVEL 139 MEQ/L (136-145); TOTAL PROTEIN 6.1 GM/DL (6.4-8.2)
[2017-03-02] MEDS: PREGABALIN 75 MG CAP(LYRICA) PO SCH ×2 (09:20→22:06)
[2017-03-02] MEDS: PANTOPRAZOLE 40MG TAB (PROTONIX) PO SCH (09:20)
[2017-03-02] MEDS: BACLOFEN 10 MG TAB PO SCH ×3 (09:21→22:06)
[2017-03-02] MEDS: PERCOCET 5MG/325MG TAB PO PRN ×3 (09:22→19:35)
[2017-03-02] MEDS: ENOXAPARIN 40 MG/0.4 ML SYRINGE (J1650) SC SCH (09:22)
--- NOTE | 2017-03-02 11:27 | IPNPDOC ---
Text Note Date of Service The patient was seen on 03/02/17. NOTE Subjective: Patient is a 36 year old female with a PMHx of Cervical CA (s/p Chemotherapy and Radiation), Insomnia, Chronic back pain (2/2 herniated disks and neck surgery), Insomnia and GERD. She presented to the ER with light- headedness for 4 days, then chest pain for 1 day. She was found to have junctional tachycardia in the ER and positive orthostatic vital signs. She was admitted to PCU and given IV fluid hydration. Cardiology (Dr. Gold) was contacted for further evaluation. Patient was seen and examined at the bedside. Currently she notes that her dizziness has improved, but occurs again when she experiences chest pain. She still reports some on and off chest discomfort. She has experienced this this morning. Objective: Vitals (See below) General: Lying in bed, no acute distress, comfortable, AAOx3 HEENT: NC, AT CVS: Tachycardic, Regular, +S1S2 Lungs: Fair air entry b/l, -w/r/r Abdomen: Soft, ND, NT, +BSx4 Extremities: - Edema, - Calf tenderness Assessment and plan: 1. Light headedness / Dizziness / Pre-syncope - likely 2/2 orthostatic hypotension - possibly 2/2 poor oral intake - Reports improvement in dizziness; but not resolved - Physical with positive orthostatic vital signs on admission; negative on most recent check - will stop orthostatic vital signs q8h - Hold amitriptyline - s/p IV fluid hydration 2. Tachycardia - possibly 2/2 pain; possible hypovolemia; possible junctional tachycardia - Presented with atypical chest pain - Physical noted for reproducible chest pain; other than positive orthostatic vital signs - EKG reviewed: appears regular, P-wave difficult to appreciate - Discussed with Dr. Gold; appears like junctional tachycardia - EKG from 02/28: T-wave inversions in III and AvF noted - Cardiac enzymes negative x 3 sets; again negative this morning - CTA chest 02/28: negative for PE - ECHO performed; official report pending - s/p IV fluid for now - Dr. Gold on consult 3. Chest pain - possibly 2/2 musculoskeletal etiology - Physical reveals reproducible chest pain - NSAIDs attempted; re: transaminitis - Will attempt Percocet - Dr. oGld on consult 4. Transaminitis - likely 2/2 NSAID use - 1 dose of ketorolac was given - will avoid hepatotoxic medications 5. Cervical CA - Stage IV - s/p Chemotherapy and Radiation; Follows with Dr. Miller and Dr. Hurtado; - s/p Dr. Morris for chemotherapy - s/p Dr. Mancilla for radiation 6. Insomnia - Will hold Amitriptyline (re: orthostatic hypotension) 7. Chronic back pain - 2/2 herniated disks and neck surgery - c/w Baclofen and Pregabalin 8. GERD - c/w Protonix 9. DVT prophylaxis - c/w Lovenox (re: Stage IV Cervical CA) VS,Fishbone, I+O VS, Fishbone, I+O Laboratory Tests 03/02/17 05:46 Red Blood Count 3.57 L, Mean Corpuscular Volume 88.4, Mean Corpuscular Hemoglobin 30.0, Mean Corpuscular Hemoglobin Concent 33.9, Red Cell Distribution Width 13.7, Neutrophils (%) (Auto) 83.5 H, Lymphocytes (%) (Auto) 6.6 L, Monocytes (%) (Auto) 4.9, Eosinophils (%) (Auto) 4.2 H, Basophils (%) ( Auto) 0.1, Neutrophils # (Auto) 4.6, Lymphocytes # (Auto) 0.4 L, Monocytes # ( Auto) 0.3, Eosinophils # (Auto) 0.2, Basophils # (Auto) 0.0, Calcium Level 8.3 L , Aspartate Amino Transf (AST/SGOT) 72 H, Alanine Aminotransferase (ALT/SGPT) 90 H, Total Creatine Kinase 27, Alkaline Phosphatase 106, Total Bilirubin 0.2, Total Protein 6.1 L, Albumin 2.4 L Vital Signs Date Time Temp Pulse Resp B/P (MAP) Pulse Ox O2 Delivery O2 Flow Rate FiO2 03/02/17 09:22 18 03/02/17 08:00 99.6 109 98/57 (71) 100 Room Air I&O- Last 24 Hours up to 6 AM 03/02/17 06:00 Intake Total 2270 ml Output Total 2575 ml Balance -305 ml FATOUMATA HOOKS MD Mar 02, 2017 11:27
[2017-03-02] MEDS ORDERED: ACETAMINOPHEN 325 MG TAB PO PRN (11:28)
--- NOTE | 2017-03-02 12:07 | ECHO ---
DATE OF PROCEDURE: 03/01/2017 DATE OF : 1980 AGE: 36 REFERRING PROVIDER: Dr. Katya Stevens. PATIENT LOCATION: Room 3222. REASON FOR ECHOCARDIOGRAM: Abnormal EKG. 2D MEASUREMENTS: IVS: 1.1 cm LV: 5.3 cm LVPW: 0.95 cm LA: 3.6 cm Aorta: 3.1 cm IVC: 1.3 cm DOPPLER MEASUREMENTS: Peak velocity across the aortic valve: 1.1 m/s Peak velocity across the LVOT: 0.69 m/s Mitral E: 1.1 Maximum tricuspid valve velocity: 1.9 m/s 2D COMMENTS: 1. Normal left ventricular size, wall thickness and normal global left ventricular systolic function. Left ventricular systolic ejection fraction is estimated at 60% to 65%. 2. Normal left atrium. Normal right atrium and right ventricle. 3. The atrial septum appeared to be normal without evidence of defect or shunt. 4. Normal aortic root. 5. Trace pericardial effusion noted posteriorly, no evidence of cardiac tamponade. 6. The aortic valve, mitral valve, tricuspid valve, and pulmonic valve appeared to be normal. The proximal pulmonary artery branches were not well visualized. 7. The inferior vena cava was normal in size, central venous pressure is most likely normal. DOPPLER: It detects mild mitral regurgitation, mild tricuspid regurgitation, and trace aortic regurgitation. The calculated pulmonary artery systolic pressure was normal. Assessment of the left ventricular diastolic function was limited in view of the baseline arrhythmia. IMPRESSION: 1. Normal global left ventricular systolic function. 2. Trace aortic regurgitation. 3. Mild mitral regurgitation. 4. Mild tricuspid regurgitation with a normal calculated pulmonary artery systolic pressure. 5. Trace pericardial effusion noted. [facility]ERC[facility]
[2017-03-02 12:08] LABS: ERYTHROCYTE SEDIMENTATION RATE 56 mm/hr (0-20)
[2017-03-03] MEDS ORDERED: GI COCKTAIL 50ML BTL(HYOSCYAMINE/MAALOX/LIDOCAINE VISCOUS)(1:3:1) PO ONE
[2017-03-03 04:01] VITALS: BP 95/57
[2017-03-03] MEDS: PERCOCET 5MG/325MG TAB PO PRN ×3 (04:06→16:19)
[2017-03-03 06:07] LABS: BASO % 0.2 % (0.0-1.0); EOS # 0.3 K/mm3 (0.0-0.50); EOS % 4.9 % (0.0-3.0); LARGE UNSTAINED CELL # 0.1 K/mm3 (0.0-0.4); LARGE UNSTAINED CELL % 1.8 % (0.0-4.0); LYMPH # 0.5 K/mm3 (1.5-4.5); LYMPH % 7.6 % (24.0-44.0); MEAN CORPUSCULAR HEMOGLOBIN 29.7 pg (27.0-33.0); MEAN CORPUSCULAR HGB CONC 33.7 g/dl (32.0-36.5); MEAN CORPUSCULAR VOLUME 88.1 fl (80.0-96.0); MONO # 0.2 K/mm3 (0.0-0.8); MONO % 4.2 % (0.0-5.0); NEUTROPHILS # 4.4 K/mm3 (1.8-7.7); NEUTROPHILS % 81.3 % (36.0-66.0); PLATELET COUNT, AUTOMATED 256 k/mm3 (150-450); RED CELL DISTRIBUTION WIDTH 13.7 % (11.5-14.5); WHITE BLOOD COUNT 5.4 K/mm3 (4.0-10.0)
[2017-03-03 06:27] LABS: ALBUMIN 2.4 GM/DL (3.2-5.2); ALBUMIN/GLOBULIN RATIO 0.62 (1.00-1.93); ALKALINE PHOSPHATASE 121 U/L (45-117); ALT/SGPT 92 U/L (12-78); ANION GAP 7 MEQ/L (8-16); AST/SGOT 40 U/L (15-37); BILIRUBIN,TOTAL 0.3 MG/DL (0.2-1.0); BLOOD UREA NITROGEN 8 MG/DL (7-18); CALCIUM LEVEL 8.6 MG/DL (8.5-10.1); CARBON DIOXIDE LEVEL 30 MEQ/L (21-32); CHLORIDE LEVEL 100 MEQ/L (98-107); GLOMERULAR FILTRATION RATE > 60.0 (>60); GLUCOSE, FASTING 109 MG/DL (70-105); MAGNESIUM LEVEL 2.2 MG/DL (1.8-2.4); POTASSIUM SERUM 3.8 MEQ/L (3.5-5.1); SODIUM LEVEL 137 MEQ/L (136-145); TOTAL PROTEIN 6.3 GM/DL (6.4-8.2)
[2017-03-03 06:47] LABS: ERYTHROCYTE SEDIMENTATION RATE 64 mm/hr (0-20)
[2017-03-03] MEDS ORDERED: MORPHINE 2 MG/ML 1ML SYRINGE IV ONE (07:00)
[2017-03-03] MEDS ORDERED: SODIUM CHLORIDE 0.9% 1000 ML IV ONE (07:30)
[2017-03-03 08:00] VITALS: BP 104/65
[2017-03-03] MEDS: PANTOPRAZOLE 40MG TAB (PROTONIX) PO SCH (08:02)
[2017-03-03] MEDS: PREGABALIN 75 MG CAP(LYRICA) PO SCH ×2 (08:02→21:08)
[2017-03-03] MEDS: BACLOFEN 10 MG TAB PO SCH ×3 (08:02→21:08)
[2017-03-03] MEDS: ENOXAPARIN 40 MG/0.4 ML SYRINGE (J1650) SC SCH (08:02)
--- NOTE | 2017-03-03 11:08 | IPNPDOC ---
Text Note Date of Service The patient was seen on 03/03/17. NOTE Subjective: Patient is a 36 year old female with a PMHx of Cervical CA (s/p Chemotherapy and Radiation), Insomnia, Chronic back pain (2/2 herniated disks and neck surgery), Insomnia and GERD. She presented to the ER with light- headedness for 4 days, then chest pain for 1 day. She was found to have junctional tachycardia in the ER and positive orthostatic vital signs. She was admitted to PCU and given IV fluid hydration. Cardiology (Dr. Gold) was contacted for further evaluation. Patient was seen and examined at the bedside. She has again experienced chest pain this morning and an EKG was ordered at the time, with pain control provided. Upon arrival to the bedside. Patient was sitting up in bed conversing pleasantly with nursing staff. She denied any chest pain. She had concerns that she wanted to see her Neurosurgeon. I have spoked with Dr. Tejeda; will stop by to talk with patient. Objective: Vitals (See below) General: Lying in bed, no acute distress, comfortable, AAOx3 HEENT: NC, AT CVS: Tachycardic, Regular, +S1S2 Lungs: Fair air entry b/l, -w/r/r Abdomen: Soft, ND, NT, +BSx4 Extremities: - Edema, - Calf tenderness Assessment and plan: 1. Chest pain - possibly 2/2 musculoskeletal etiology - Physical reveals reproducible chest pain - EKG from 03/03: reveals some ST depressions in leads V1 - V5; T wave inversions noted in III and AvF - Cardiac enzymes negative on all sets; will trend enzymes 2 more times - CTA chest 02/28: negative for PE - ECHO 03/02: Normal Systolic function, trace AR, mild MR, mild TR, normal calculated pulmonary artery systolic pressure - Dr. Gold on consult; called and discussed case and EKG finds; will stop by to evaluate again 2. Light headedness / Dizziness / Pre-syncope - likely 2/2 orthostatic hypotension - possibly 2/2 poor oral intake - Reports improvement in dizziness; occurs intermittently now - Physical with positive orthostatic vital signs on admission; negative on most recent check - Blood pressure remains in lower side of normal - will repeat orthostatic vital signs twice a day - Hold amitriptyline - Will restart IV fluid hydration with NS at 100cc/hr 3. Tachycardia / Chest pain - possibly 2/2 pain; possible hypovolemia; possible junctional tachycardia - Presented with atypical chest pain - Physical noted for reproducible chest pain - more on left chest wall; bruising on chest wall noted - EKG reviewed: appears regular, P-wave difficult to appreciate; discussed with Dr. Gold; appears like junctional tachycardia 4. Transaminitis - likely 2/2 NSAID use - improving - 1 dose of ketorolac was given - will avoid hepatotoxic medications 5. Cervical CA - Stage IV - s/p Chemotherapy and Radiation; Follows with Dr. Miller and Dr. Hurtado; - s/p Dr. Morris for chemotherapy - s/p Dr. Mancilla for radiation 6. Insomnia - Will hold Amitriptyline (re: orthostatic hypotension) 7. Chronic back pain - 2/2 herniated disks and neck surgery - c/w Baclofen and Pregabalin - Discussed with Dr. Tejeda; will see patient 8. GERD - c/w Protonix 9. DVT prophylaxis - c/w Lovenox (re: Stage IV Cervical CA) VS,Fishbone, I+O VS, Fishbone, I+O Laboratory Tests 03/03/17 05:24 Red Blood Count 3.71 L, Mean Corpuscular Volume 88.1, Mean Corpuscular Hemoglobin 29.7, Mean Corpuscular Hemoglobin Concent 33.7, Red Cell Distribution Width 13.7, Neutrophils (%) (Auto) 81.3 H, Lymphocytes (%) (Auto) 7.6 L, Monocytes (%) (Auto) 4.2, Eosinophils (%) (Auto) 4.9 H, Basophils (%) ( Auto) 0.2, Neutrophils # (Auto) 4.4, Lymphocytes # (Auto) 0.5 L, Monocytes # ( Auto) 0.2, Eosinophils # (Auto) 0.3, Basophils # (Auto) 0.0, Calcium Level 8.6, Aspartate Amino Transf (AST/SGOT) 40 H, Alanine Aminotransferase (ALT/SGPT) 92 H , Total Creatine Kinase 19 L, Alkaline Phosphatase 121 H, Total Bilirubin 0.3, Total Protein 6.3 L, Albumin 2.4 L Vital Signs Date Time Temp Pulse Resp B/P (MAP) Pulse Ox O2 Delivery O2 Flow Rate FiO2 03/03/17 10:35 18 7/23/17 08:00 99.3 114 104/65 78) 96 Room Air I&O- Last 24 Hours up to 6 AM 03/03/17 06:00 Intake Total 480 ml Output Total 3500 ml Balance -3020 ml FATOUMATA HOOKS MD Mar 03, 2017 11:08
[2017-03-03] MEDS ORDERED: SLF 3 ML SYR IV PRN (11:15)
[2017-03-03] MEDS: NS 1,000 ML IV SCH (11:15)
[2017-03-03 12:00] VITALS: BP 104/65
--- NOTE | 2017-03-03 12:36 | IPN ---
DATE: 03/03/2017 Mrs. Tammy Mcdonald was seen this morning. She laying supine in bed in no acute distress at rest. Her was at bedside. She continues to have chest pain associated with rapid heart rate and dizziness. She had an echocardiogram done 03/01/2017, and it revealed a normal global left ventricular systolic function, no significant valvular heart disease, but mild mitral and tricuspid regurgitation, trace aortic regurgitation, as well as, trace pericardial effusion. There is no orthopnea, paroxysmal nocturnal dyspnea (PND) or pedal edema. There is no cough. There is no report of bleeding. The major complaint is insomnia. On physical examination, the patient is alert and oriented, in no acute distress at rest. Her last vital signs this morning revealed a blood pressure of 104/65 with a pulse of 114, respirations 18 to 20 and her maximum temperature is 99.3 degrees Fahrenheit with an oxygen saturation of 96% on room air. Examination of the head is normocephalic, atraumatic. Neck is supple. The lungs were clear bilaterally without any wheezing or crackles. The heart examination revealed normal S1, S2 without gallops. The PMI is not displaced. There is no rub. I could not appreciate any murmurs. Abdominal examination is normal. Extremities revealed no pedal edema. Neurological Examination: Revealed no focal deficit. LABS: CBC done today revealed a WBC of 5.4, hemoglobin 11.7, hematocrit 32.7 and platelets 256,000. BMP revealed a sodium of 137, potassium 3.8, chloride 100, CO2 30, BUN 8, creatinine 0.8, GFR more than 60, fasting glucose 109, and calcium 8.6. Magnesium is 2.2. Liver enzymes revealed a total bilirubin of 0.3, AST 40, ALT 92, and alkaline phosphatase 121. Total protein 6.3. Albumin 2.4. Serum troponin remained negative at less than 0.02. Electrocardiogram done this morning revealed a narrow complex supraventricular tachycardia that seems to be a junctional tachycardia versus a normal sinus rhythm with first degree AV block. There is a mild IVCD and nonspecific ST/T abnormalities. No remarkable changes from last EKG on 03/02/2017. IMPRESSION: The patient continues to be in a narrow complex supraventricular tachycardia that seems to be a junctional tachycardia. She is symptomatic with chest pain. The case was discussed with her as well as with the present in the room and her nurse. EKGs will be reviewed with first aid teacher in [place] and then further recommendations will be given. In the meantime, will continue her on telemetry. I will inform you of any recommendations. MIGNON
[2017-03-03] MEDS: MORPHINE 2 MG/ML 1ML SYRINGE IV PRN ×2 (13:04→21:07)
[2017-03-03] MEDS: SLF 3 ML SYR IV SCH ×2 (13:04→21:25)
[2017-03-03 16:00] VITALS: BP 97/67
[2017-03-03] MEDS: CALCIUM CARBONATE 500 MG CHEW U/D PO PRN (16:18)
[2017-03-03] MEDS ORDERED: ONDANSETRON 4MG/2ML VIAL (J2405) As Ordered ONE (16:28)
[2017-03-03] MEDS ORDERED: MECLIZINE 25 MG TABLET PO ONE (18:00)
[2017-03-03 20:00] VITALS: BP_SYST 104; BP_SYST 109; BP_SYST 123; BP_DIAS 63; BP_DIAS 67; BP_DIAS 68
[2017-03-03] MEDS ORDERED: DIGOXIN INJ 0.5 MG/2 ML AMP (J1160) IV ONE (21:00)
--- NOTE | 2017-03-03 21:24 | REP ---
MRI LEFT SHOULDER: TECHNIQUE: Axial T2 fat sat, coronal oblique T1, T2 fat sat, post arthrogram axial T1 fat sat, proton density, coronal oblique T1 fat sat, T2 sat, sagittal oblique T2 fat sat, ABER T1 fat sat. COMPARISON: 07/06/2016 Supraspinatus tendon demonstrates mild ill-defined high signal compatible with mild tendinopathy/tendinitis. There is no rotator cuff tear. There are mild hypertrophic degenerative changes of the acromioclavicular joint again seen. Acromion is not hooked in shape. Biceps tendon is with the bicipital groove without significant tenosynovitis. There is no Hill Sach's deformity. Deltoid muscle demonstrates no abnormal signal. Biceps labral complex appears intact. I do not see evidence of a slap tear or labral tear. There is no bone marrow edema or occult fracture. There is no joint effusion. I do not see a paralabral cyst. IMPRESSION: Similar findings to prior study. Mild supraspinatus tendinopathy/tendinitis. No rotator cuff tear or labral tear. Signed by Clint Castrejon MD 03/04/2017 01:07 P
--- NOTE | 2017-03-03 23:36 | ECGEPIP ---
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
--- NOTE | 2017-03-03 23:49 | ECGEPIP ---
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
[2017-03-04] VITALS (7 sets, daily range): BP systolic 94–117; BP diastolic 60–72; PULSE 105
[2017-03-04] MEDS: PERCOCET 5MG/325MG TAB PO PRN ×4 (00:11→22:06)
[2017-03-04] MEDS ORDERED: DIGOXIN INJ 0.5 MG/2 ML AMP (J1160) IV ONE ×2 (01:10→20:00)
[2017-03-04] MEDS: NS 1,000 ML IV SCH (01:12)
[2017-03-04] MEDS: MORPHINE 2 MG/ML 1ML SYRINGE IV PRN (03:26)
[2017-03-04] MEDS: ONDANSETRON 4MG/2ML VIAL (J2405) IV PRN ×2 (03:54→13:00)
[2017-03-04] MEDS ORDERED: MECLIZINE 25 MG TABLET PO ONE (04:00)
[2017-03-04 06:06] LABS: BASO % 0.3 % (0.0-1.0); EOS # 0.2 K/mm3 (0.0-0.50); EOS % 4.4 % (0.0-3.0); LARGE UNSTAINED CELL # 0.1 K/mm3 (0.0-0.4); LARGE UNSTAINED CELL % 1.1 % (0.0-4.0); LYMPH # 0.5 K/mm3 (1.5-4.5); LYMPH % 7.4 % (24.0-44.0); MEAN CORPUSCULAR HEMOGLOBIN 29.7 pg (27.0-33.0); MEAN CORPUSCULAR HGB CONC 33.5 g/dl (32.0-36.5); MEAN CORPUSCULAR VOLUME 88.8 fl (80.0-96.0); MONO # 0.2 K/mm3 (0.0-0.8); NEUTROPHILS # 4.4 K/mm3 (1.8-7.7); NEUTROPHILS % 82.7 % (36.0-66.0); PLATELET COUNT, AUTOMATED 268 k/mm3 (150-450); RED CELL DISTRIBUTION WIDTH 13.6 % (11.5-14.5); WHITE BLOOD COUNT 5.4 K/mm3 (4.0-10.0)
[2017-03-04 06:21] LABS: ALBUMIN 2.3 GM/DL (3.2-5.2); ALBUMIN/GLOBULIN RATIO 0.56 (1.00-1.93); ALKALINE PHOSPHATASE 135 U/L (45-117); ALT/SGPT 79 U/L (12-78); ANION GAP 6 MEQ/L (8-16); AST/SGOT 28 U/L (15-37); BILIRUBIN,TOTAL 0.2 MG/DL (0.2-1.0); BLOOD UREA NITROGEN 8 MG/DL (7-18); CALCIUM LEVEL 8.6 MG/DL (8.5-10.1); CARBON DIOXIDE LEVEL 28 MEQ/L (21-32); CHLORIDE LEVEL 102 MEQ/L (98-107); CREATININE FOR GFR 0.82 MG/DL (0.55-1.02); GLOMERULAR FILTRATION RATE > 60.0 (>60); GLUCOSE, FASTING 110 MG/DL (70-105); MAGNESIUM LEVEL 2.1 MG/DL (1.8-2.4); POTASSIUM SERUM 4.4 MEQ/L (3.5-5.1); SODIUM LEVEL 136 MEQ/L (136-145); TOTAL PROTEIN 6.4 GM/DL (6.4-8.2)
[2017-03-04 06:33] LABS: ERYTHROCYTE SEDIMENTATION RATE 66 mm/hr (0-20)
--- NOTE | 2017-03-04 07:48 | ECGEPIP ---
Stationary ECG Study [facility] - ED Test Date: 2017-02-28 Pat Name: LUIS ACEVEDO Department: Room: - Gender: F Test Eng: CLAUDETTE : 1980 Requested By: Mynor Fernandez Order Number: [id number] Reading MD: Mynor Gomez Measurements Intervals [place] Rate: 107 P: HI: 0 QRS: 63 QRSD: 102 T: -35 QT: 342 QTc: 458 Interpretive Statements ATRIAL FIBRILLATION WITH RAPID VENTRICULAR RESPONSE NONSPECIFIC ST & T-WAVE ABNORMALITY RHYTHM CHANGE COMPARED TO 07/05/16 Electronically Signed On 03-04-2017 7:48:00 EDT by Mynor Gomez
--- NOTE | 2017-03-04 07:51 | ECGEPIP ---
Stationary ECG Study [facility] - ED Test Date: 2017-02-28 Pat Name: LUIS ACEVEDO Department: Room: - Gender: F Right Of Way Cutter: CLAUDETTE : 1980 Requested By: MÓNICA Mederos Order Number: [id number] Reading MD: Mynor Gomez Measurements Intervals [place] Rate: 102 P: 217 NC: 258 QRS: 79 QRSD: 105 T: -36 QT: 358 QTc: 468 Interpretive Statements ATRIAL FIBRILLATION WITH RVR NSSTW ABNORMLAITIES SIMILAR TO PRIOR ON SAME DATE Electronically Signed On 03-04-2017 7:51:02 EDT by Mynor Gomez
[2017-03-04] MEDS: BACLOFEN 10 MG TAB PO SCH ×3 (09:30→20:58)
[2017-03-04] MEDS: PANTOPRAZOLE 40MG TAB (PROTONIX) PO SCH (09:30)
[2017-03-04] MEDS: PREGABALIN 75 MG CAP(LYRICA) PO SCH ×2 (09:31→20:58)
[2017-03-04] MEDS: ENOXAPARIN 40 MG/0.4 ML SYRINGE (J1650) SC SCH (09:32)
[2017-03-04] MEDS ORDERED: SLF 3 ML SYR IV PRN (11:00)
--- NOTE | 2017-03-04 11:14 | IPNPDOC ---
Subjective Date Seen The patient was seen on 03/04/17. Subjective Chief Complaint/HPI The patient is a 36-year-old female admitted with a reason for visit of Junctional Tachycardia,Orthostatic Hypotension. Events since last encounter complaining of intermittent chest pain , also has left shoulder pain and inability to raise the left arm above the shoulder level , no furthr dizziness aor light headedness or nausea. Objective Physical Examination General Exam: Positive: Alert, Cooperative, No Acute Distress Eye Exam: Positive: PERRLA, Conjunctiva & lids normal, EOMI, Negative: Sclera icteric ENT Exam: Positive: Atraumatic, Mucous membr. moist/pink, Pharynx Normal Neck Exam: Positive: Supple, Negative: JVD, thyromegaly Chest Exam: Positive: Clear to auscultation, Normal air movement Heart Exam: Positive: Tachycardic, Regular Rhythm, Normal S1, Normal S2 Telemetry: Positive: Tachycardia (junctional) Abdomen Exam: Positive: Normal bowel sounds, Soft, Negative: Tenderness, Hepatospenomegaly Extremity Exam: Positive: Normal pulses, Negative: Clubbing, Cyanosis, Edema Skin Exam: Positive: Nl turgor and temperature, Negative: Rash, Breakdown Assessment /Plan Problems (1) Junctional tachycardia Status: Acute Problem Text: as per Dr Gold awaiting to hear back from stock ranch supervisor in [place]. (2) Orthostatic hypotension Status: Acute Problem Text: presented with dizziness, light headedness and presyncope. now improving will stop ivf. continue with meclizine prn (3) Chronic back pain Status: Chronic (4) GERD (gastroesophageal reflux disease) Status: Chronic (5) Cervical cancer Status: Chronic Problem Text: - s/p Chemotherapy and Radiation; Follows with Dr. Miller and Dr. Hurtado; - s/p Dr. Morris for chemotherapy - s/p Dr. Mancilla for radiation (6) Chest pain Status: Acute Problem Text: possibly musculoskeletal in etiology - Physical reveals reproducible chest pain and pain worsened with arm movement. - EKG from 03/03: reveals some ST depressions in leads V1 - V5; T wave inversions noted in III and AvF - Cardiac enzymes negative on all sets; will trend enzymes 2 more times - CTA chest 02/28: negative for PE - ECHO 03/02: Normal Systolic function, trace AR, mild MR, mild TR, normal calculated pulmonary artery systolic pressure on percocet. (7) Transaminitis Status: Acute Response to Treatment: Improving Problem Text: etiology undetermined could be ketorolac mediated. Plan/VTE VTE Prophylaxis Ordered?: Yes VS, I&O, 24H, Fishbone Vital Signs/I&O Vital Signs Date Time Temp Pulse Resp B/P (MAP) Pulse Ox O2 Delivery O2 Flow Rate FiO2 03/04/17 09:58 110 20 96 Room Air 03/04/17 04:00 98.9 104/66 (79) I&O- Last 24 Hours up to 6 AM 03/04/17 06:00 Intake Total 3620 ml Output Total 2900 ml Balance 720 ml Laboratory Data 24H LABS Laboratory Tests 2 03/03/17 12:08: Total Creatine Kinase 19L, Creatine Kinase MB 1.0, Creatine Kinase MB Relative Index 5.26H, Troponin I 0.02 03/03/17 18:24: Total Creatine Kinase 79#, Creatine Kinase MB 1.0, Creatine Kinase MB Relative Index 1.26, Troponin I < 0.02 03/04/17 05:36: White Blood Count 5.4, Red Blood Count 3.77L, Hemoglobin 11.2L, Hematocrit 33.5L , Mean Corpuscular Volume 88.8, Mean Corpuscular Hemoglobin 29.7, Mean Corpuscular Hemoglobin Concent 33.5, Red Cell Distribution Width 13.6, Platelet Count 268, Neutrophils (%) (Auto) 82.7H, Lymphocytes (%) (Auto) 7.4L, Monocytes (%) (Auto) 4.0, Eosinophils (%) (Auto) 4.4H, Basophils (%) (Auto) 0.3, Neutrophils # (Auto) 4.4, Lymphocytes # (Auto) 0.5L, Monocytes # (Auto) 0.2, Eosinophils # (Auto) 0.2, Basophils # (Auto) 0.0, Large Unclassified Cells % 1.1 , Large Unclassified Cells # 0.1, Erythrocyte Sedimentation Rate 66H, Anion Gap 6L, Glomerular Filtration Rate > 60.0, Blood Urea Nitrogen 8, Creatinine 0.82, Sodium Level 136, Potassium Level 4.4, Chloride Level 102, Carbon Dioxide Level 28, Calcium Level 8.6, Aspartate Amino Transf (AST/SGOT) 28, Alanine Aminotransferase (ALT/SGPT) 79H, Alkaline Phosphatase 135H, Total Bilirubin 0.2 , Total Protein 6.4, Albumin 2.3L, Magnesium Level 2.1, C-Reactive Protein, Quantitative 12.70H, Albumin/Globulin Ratio 0.56L CBC/BMP Laboratory Tests 03/04/17 05:36 Red Blood Count 3.77 L, Mean Corpuscular Volume 88.8, Mean Corpuscular Hemoglobin 29.7, Mean Corpuscular Hemoglobin Concent 33.5, Red Cell Distribution Width 13.6, Neutrophils (%) (Auto) 82.7 H, Lymphocytes (%) (Auto) 7.4 L, Monocytes (%) (Auto) 4.0, Eosinophils (%) (Auto) 4.4 H, Basophils (%) ( Auto) 0.3, Neutrophils # (Auto) 4.4, Lymphocytes # (Auto) 0.5 L, Monocytes # ( Auto) 0.2, Eosinophils # (Auto) 0.2, Basophils # (Auto) 0.0, Calcium Level 8.6, Aspartate Amino Transf (AST/SGOT) 28, Alanine Aminotransferase (ALT/SGPT) 79 H, Alkaline Phosphatase 135 H, Total Bilirubin 0.2, Total Protein 6.4, Albumin 2.3 L BERNARDINO ZHAO MD Mar 04, 2017 11:14
[2017-03-04] MEDS: SLF 3 ML SYR IV SCH ×2 (13:00→20:59)
[2017-03-04] MEDS: MECLIZINE 25 MG TABLET PO PRN (13:33)
--- NOTE | 2017-03-04 20:36 | IPN ---
DATE: 03/04/2017 Mrs. Tammy Mcdonald was seen this evening. She was supine in bed in no acute distress at rest and her mother was at bedside. She continues to have occasional chest pain associated with dizziness and diaphoresis, and her heart rate continues to be fast with minimal activity. She has no orthopnea or paroxysmal nocturnal dyspnea (PND). No syncope or near syncope. No pedal edema. She denies any bleeding. On physical examination, patient is alert and oriented, in no acute distress at rest and her vital signs today reveal a blood pressure of 105/60, with a pulse that lies between 107 up to 112, respirations 18 and a maximum temperature is 98.3 degrees Fahrenheit with an oxygen saturation of 96-98% on room air. Yesterday, she was in a negative fluid balance of 946. Examination of the head, ears, eyes, nose and throat: Atraumatic. Neck is supple. No jugular venous distention (JVD). The lungs were clear bilaterally on auscultation without any wheezing or crackles. The heart examination revealed normal S1 and S2 without gallops. The point of maximum impulse (PMI) is not displaced. There is no rub. I could not appreciate any murmurs. Abdomen is unremarkable. Extremities reveal no pedal edema. Neurological examination is negative for focal deficit. LABORATORIES: Basic metabolic panel (BMP) reveals a sodium of 136, potassium 4.4, chloride 102 , CO2 28, BUN 8, creatinine 0.82, GFR more than 60, fasting glucose 110, calcium 8.6. Serum magnesium 2.1. Liver enzymes reveal a total bilirubin of 0.2, AST 28, ALT 79, alkaline phosphatase 135, total protein 6.4, albumin 2.3. Serum C-reactive protein was 12.7. Complete blood count (CBC) revealed a WBC of 5.4, hemoglobin 12.2, hematocrit 33.5 and platelets 268,000. IMPRESSION: Symptomatic cardiac arrhythmia, probably related to junctional tachycardia versus atrial flutter. Patient was started on digoxin upon recommendation of nuclear medical technologist (EP) from [place] and she continues to be the same, but she thinks she is getting better. Upon reviewing the rhythm strips today, it seems that at times, it seems that it is atrial flutter and she will be getting a trial of flecainide. I will continue with the digoxin. We will continue to monitor her for the next 24-48 hours and she will be discharged home on an event recorder. I will see her in the office and she will be referred to see an nuclear medical technologist in [place], [place] for EP study and ablation, if needed. This was discussed with her as well as her mother and patient is in agreement. I will continue to monitor along with you while in the hospital. MIGNON
[2017-03-04] MEDS: FLECAINIDE 50MG TABLET PO SCH (22:15)
[2017-03-05] VITALS: BP 132/75
[2017-03-05] MEDS: ONDANSETRON 4MG/2ML VIAL (J2405) IV PRN ×2 (01:50→09:36)
[2017-03-05] MEDS: MECLIZINE 25 MG TABLET PO PRN (01:50)
[2017-03-05] MEDS: PERCOCET 5MG/325MG TAB PO PRN ×4 (03:52→21:12)
[2017-03-05 04:00] VITALS: BP 120/76
[2017-03-05 05:39] LABS: BASO % 0.1 % (0.0-1.0); EOS # 0.3 K/mm3 (0.0-0.50); EOS % 6.3 % (0.0-3.0); LARGE UNSTAINED CELL # 0.1 K/mm3 (0.0-0.4); LARGE UNSTAINED CELL % 1.5 % (0.0-4.0); LYMPH # 0.6 K/mm3 (1.5-4.5); LYMPH % 10.1 % (24.0-44.0); MEAN CORPUSCULAR HEMOGLOBIN 30.1 pg (27.0-33.0); MEAN CORPUSCULAR VOLUME 88.6 fl (80.0-96.0); MONO # 0.2 K/mm3 (0.0-0.8); MONO % 3.6 % (0.0-5.0); NEUTROPHILS # 3.7 K/mm3 (1.8-7.7); NEUTROPHILS % 78.3 % (36.0-66.0); PLATELET COUNT, AUTOMATED 280 k/mm3 (150-450); RED CELL DISTRIBUTION WIDTH 13.6 % (11.5-14.5); WHITE BLOOD COUNT 4.8 K/mm3 (4.0-10.0)
[2017-03-05] MEDS: SLF 3 ML SYR IV SCH ×3 (05:51→21:10)
[2017-03-05 06:16] LABS: ERYTHROCYTE SEDIMENTATION RATE 72 mm/hr (0-20)
[2017-03-05 06:44] LABS: ALBUMIN 2.5 GM/DL (3.2-5.2); ALBUMIN/GLOBULIN RATIO 0.71 (1.00-1.93); ALKALINE PHOSPHATASE 143 U/L (45-117); ALT/SGPT 77 U/L (12-78); ANION GAP 9 MEQ/L (8-16); AST/SGOT 27 U/L (15-37); BILIRUBIN,TOTAL 0.2 MG/DL (0.2-1.0); BLOOD UREA NITROGEN 8 MG/DL (7-18); CALCIUM LEVEL 8.5 MG/DL (8.5-10.1); CARBON DIOXIDE LEVEL 28 MEQ/L (21-32); CHLORIDE LEVEL 99 MEQ/L (98-107); CREATININE FOR GFR 0.78 MG/DL (0.55-1.02); GLOMERULAR FILTRATION RATE > 60.0 (>60); GLUCOSE, FASTING 108 MG/DL (70-105); MAGNESIUM LEVEL 2.1 MG/DL (1.8-2.4); POTASSIUM SERUM 4.2 MEQ/L (3.5-5.1); SODIUM LEVEL 136 MEQ/L (136-145)
[2017-03-05 08:00] VITALS: BP_SYST 115; BP_SYST 116; BP_SYST 118; BP_DIAS 72; BP_DIAS 75; BP_DIAS 77
[2017-03-05] MEDS: ENOXAPARIN 40 MG/0.4 ML SYRINGE (J1650) SC SCH (09:36)
[2017-03-05] MEDS: BACLOFEN 10 MG TAB PO SCH ×3 (09:37→21:10)
[2017-03-05] MEDS: PREGABALIN 75 MG CAP(LYRICA) PO SCH ×2 (09:37→21:10)
[2017-03-05] MEDS: PANTOPRAZOLE 40MG TAB (PROTONIX) PO SCH (09:37)
--- NOTE | 2017-03-05 10:24 | ECGEPIP ---
Stationary ECG Study [facility] Test Date: 2017-03-05 Pat Name: LUIS ACEVEDO Department: Room: [place] [address] Gender: F Bit Tripoler: EMY : 1980 Requested By: ADRIANNE RUEDA Order Number: [id number] Reading MD: Alfredo Haskins Measurements Intervals [place] Rate: 95 P: 191 CA: 266 QRS: 75 QRSD: 118 T: -2 QT: 389 QTc: 491 Interpretive Statements SINUS RHYTHM WITH FIRST DEGREE AV BLOCK Prolonged QTc new since tracing of 03-03-17 LOW QRS VOLTAGE IN PRECORDIAL LEADS MODERATE INTRAVENTRICULAR CONDUCTION DELAY MODERATE ST DEPRESSION ABNORMAL QRS-T ANGLE Electronically Signed On 03-05-2017 10:24:40 EDT by Alfredo Haskins
--- NOTE | 2017-03-05 11:55 | IPNPDOC ---
Subjective Date Seen The patient was seen on 03/05/17. Subjective Chief Complaint/HPI The patient is a 36-year-old female admitted with a reason for visit of Junctional Tachycardia,Orthostatic Hypotension. Events since last encounter Had an episode of chest tightness, dizziness, light headedness, nausea this am lasting from 4 am to 6 am , telemetry did not show any new arrhythmias. no change in vitals. Objective Physical Examination General Exam: Positive: Alert, Cooperative, No Acute Distress Eye Exam: Positive: PERRLA, Conjunctiva & lids normal, EOMI, Negative: Sclera icteric ENT Exam: Positive: Atraumatic, Mucous membr. moist/pink, Pharynx Normal Neck Exam: Positive: Supple, Negative: JVD, thyromegaly Chest Exam: Positive: Clear to auscultation, Normal air movement Heart Exam: Positive: Tachycardic, Regular Rhythm, Normal S1, Normal S2 Telemetry: Positive: Tachycardia (junctional) Abdomen Exam: Positive: Normal bowel sounds, Soft, Negative: Tenderness, Hepatospenomegaly Extremity Exam: Positive: Normal pulses, Negative: Clubbing, Cyanosis, Edema Skin Exam: Positive: Nl turgor and temperature, Negative: Rash, Breakdown Assessment /Plan Problems (1) Junctional tachycardia Status: Acute Problem Text: started on flecainide, continue digoxin. will get a loop recorder at discharge and to follow with spinning lathe operator after discharge. (2) Orthostatic hypotension Status: Resolved Problem Text: presented with dizziness, light headedness and presyncope. now improving will stop ivf. 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 (4) GERD (gastroesophageal reflux disease) Status: Chronic (5) Cervical cancer Status: Chronic Problem Text: - s/p Chemotherapy and Radiation from jun 2016 to aug 2016; Follows with Dr. Miller and Dr. Hurtado; - s/p Dr. Morris for chemotherapy - s/p Dr. Mancilla for radiation (6) Chest pain Status: Acute Problem Text: possibly musculoskeletal in etiology - Physical reveals reproducible chest pain and pain worsened with arm movement. - EKG from 03/03: reveals some ST depressions in leads V1 - V5; T wave inversions noted in III and AvF - Cardiac enzymes negative on all sets; will trend enzymes 2 more times - CTA chest 02/28: negative for PE - ECHO 03/02: Normal Systolic function, trace AR, mild MR, mild TR, normal calculated pulmonary artery systolic pressure on percocet. (7) Transaminitis Status: Acute Response to Treatment: Improving Problem Text: etiology undetermined could be ketorolac mediated. Plan/VTE VTE Prophylaxis Ordered?: Yes VS, I&O, 24H, Fishbone Vital Signs/I&O Vital Signs Date Time Temp Pulse Resp B/P (MAP) Pulse Ox O2 Delivery O2 Flow Rate FiO2 03/05/17 09:37 16 03/05/17 08:27 Room Air 03/05/17 08:00 97.9 93 116/75 (89) 97 I&O- Last 24 Hours up to 6 AM 03/05/17 06:00 Intake Total 2690 ml Output Total 4450 ml Balance -1760 ml Laboratory Data 24H LABS Laboratory Tests 2 03/05/17 05:30: Anion Gap 9, Glomerular Filtration Rate > 60.0, Blood Urea Nitrogen 8, Creatinine 0.78, Sodium Level 136, Potassium Level 4.2, Chloride Level 99, Carbon Dioxide Level 28, Calcium Level 8.5, Aspartate Amino Transf (AST/SGOT) 27 , Alanine Aminotransferase (ALT/SGPT) 77, Alkaline Phosphatase 143H, Total Bilirubin 0.2, Total Protein 6.0L, Albumin 2.5L, Magnesium Level 2.1, Troponin I < 0.02, C-Reactive Protein, Quantitative 12.20H, Albumin/Globulin Ratio 0.71L 03/05/17 05:31: White Blood Count 4.8, Red Blood Count 3.63L, Hemoglobin 10.9L, Hematocrit 32.2L , Mean Corpuscular Volume 88.6, Mean Corpuscular Hemoglobin 30.1, Mean Corpuscular Hemoglobin Concent 34.0, Red Cell Distribution Width 13.6, Platelet Count 280, Neutrophils (%) (Auto) 78.3H, Lymphocytes (%) (Auto) 10.1L, Monocytes (%) (Auto) 3.6, Eosinophils (%) (Auto) 6.3H, Basophils (%) (Auto) 0.1 , Neutrophils # (Auto) 3.7, Lymphocytes # (Auto) 0.6L, Monocytes # (Auto) 0.2, Eosinophils # (Auto) 0.3, Basophils # (Auto) 0.0, Large Unclassified Cells % 1.5 , Large Unclassified Cells # 0.1, Erythrocyte Sedimentation Rate 72H CBC/BMP Laboratory Tests 03/05/17 05:30 Calcium Level 8.5, Aspartate Amino Transf (AST/SGOT) 27, Alanine Aminotransferase (ALT/SGPT) 77, Alkaline Phosphatase 143 H, Total Bilirubin 0.2 , Total Protein 6.0 L, Albumin 2.5 L 03/05/17 05:31 Red Blood Count 3.63 L, Mean Corpuscular Volume 88.6, Mean Corpuscular Hemoglobin 30.1, Mean Corpuscular Hemoglobin Concent 34.0, Red Cell Distribution Width 13.6, Neutrophils (%) (Auto) 78.3 H, Lymphocytes (%) (Auto) 10.1 L, Monocytes (%) (Auto) 3.6, Eosinophils (%) (Auto) 6.3 H, Basophils (%) ( Auto) 0.1, Neutrophils # (Auto) 3.7, Lymphocytes # (Auto) 0.6 L, Monocytes # ( Auto) 0.2, Eosinophils # (Auto) 0.3, Basophils # (Auto) 0.0 BERNARDINO ZHAO MD Mar 05, 2017 11:55
[2017-03-05 12:00] VITALS: BP 101/55
[2017-03-05] MEDS: FLECAINIDE 50MG TABLET PO SCH ×2 (13:13→21:10)
[2017-03-05 16:00] VITALS: BP_SYST 106; BP_SYST 107; BP_SYST 108; BP_DIAS 64; BP_DIAS 65; BP_DIAS 67
[2017-03-05 19:45] VITALS: BP 119/67
[2017-03-05] MEDS ORDERED: DIGOXIN 0.25 MG TAB PO ONE (19:45)
--- NOTE | 2017-03-05 20:49 | IPN ---
DATE: 03/05/2017 Mrs. Tammy Mcdonald was seen earlier this evening. She was sitting up in bed in no acute distress at rest and having dinner. Her mother was at bedside. She thinks she feels better today, but earlier this morning, around 4 or 5 in the morning, she stated that she felt lightheaded, associated with chest discomfort and rapid heart rate but telemetry seems to be unchanged. She stated that her heart rate has improved now, stays around 100. She denies any cough. She has occasional heartburn. She has no focal manifestation. About a couple of days ago , she was started on digoxin and yesterday, I added flecainide as a trial because at the time it seemed that she was in 2:1 AV block, that may be related to atrial flutter. On physical examination, the patient is alert and oriented, in no acute distress at rest and her last vital signs this evening revealed a blood pressure of 119/ 67 with a pulse of 105, respirations 18 and her maximum temperature was 98.4 degrees Fahrenheit with an oxygen saturation of 95-97% on room air. Examination of the head, ears, eyes, nose and throat: Atraumatic. Neck is supple. No jugular venous distention (JVD). The lungs were clear bilaterally on auscultation without any wheezing or crackles. The heart examination revealed normal S1 and S2 without gallops. The point of maximum impulse (PMI) is not displaced. There is no rub. There is a systolic murmur, grade 1/6, at the lower left sternal border without any significant radiation. Abdominal examination is unremarkable. Extremities reveal no pedal edema. Neurologic examination grossly was negative for focal deficit. LABORATORY: CBC done today revealed a WBC of 4.8, hemoglobin 10.9, hematocrit 32.2 and platelets 280,000. BMP revealed a sodium of 136, potassium 4.2, chloride 99, CO2 28, BUN 8, creatinine 0.78, GFR more than 60, fasting glucose 108, calcium 8.5. Serum magnesium is 2.1. Liver enzymes revealed a total bilirubin of 0.2, AST 27, ALT 77, alkaline phosphatase 143, total protein 6.0, albumin 2.5. Serum C-reactive protein today was 12.2. Telemetry was reviewed and seems to be a junctional tachycardia, but at times, it seemed there were some clear P waves that can be visualized, particularly yesterday in the evening. Will continue current medications, and she will be monitored. Will see how she responds tomorrow, then further recommendations will be given. I will continue to monitor her along with you. Tomorrow, will have a digoxin level. Upon discharge, as mentioned before, she will be given an event recorder and as an outpatient, she will be referred to see tree expert in [place], and this was discussed with her. She has agreed to proceed. MIGNON
[2017-03-05] MEDS ORDERED: DOCUSATE SODIUM 100 MG CAP PO SCH (21:00)
[2017-03-06] VITALS (7 sets, daily range): BP systolic 103–117; BP diastolic 61–77
[2017-03-06] MEDS: PERCOCET 5MG/325MG TAB PO PRN ×7 (01:24→23:45)
[2017-03-06 05:22] LABS: BASO % 0.2 % (0.0-1.0); EOS # 0.3 K/mm3 (0.0-0.50); EOS % 7.9 % (0.0-3.0); LARGE UNSTAINED CELL % 0.9 % (0.0-4.0); LYMPH # 0.4 K/mm3 (1.5-4.5); LYMPH % 9.3 % (24.0-44.0); MEAN CORPUSCULAR HEMOGLOBIN 29.7 pg (27.0-33.0); MEAN CORPUSCULAR HGB CONC 33.1 g/dl (32.0-36.5); MEAN CORPUSCULAR VOLUME 89.7 fl (80.0-96.0); MONO # 0.2 K/mm3 (0.0-0.8); MONO % 3.7 % (0.0-5.0); NEUTROPHILS # 3.1 K/mm3 (1.8-7.7); NEUTROPHILS % 77.9 % (36.0-66.0); PLATELET COUNT, AUTOMATED 300 k/mm3 (150-450); RED CELL DISTRIBUTION WIDTH 13.4 % (11.5-14.5)
[2017-03-06] MEDS: SLF 3 ML SYR IV SCH ×3 (05:26→21:10)
[2017-03-06 05:49] LABS: ALBUMIN 2.8 GM/DL (3.2-5.2); ALBUMIN/GLOBULIN RATIO 0.72 (1.00-1.93); ALKALINE PHOSPHATASE 160 U/L (45-117); ALT/SGPT 73 U/L (12-78); ANION GAP 7 MEQ/L (8-16); AST/SGOT 26 U/L (15-37); BILIRUBIN,TOTAL 0.2 MG/DL (0.2-1.0); BLOOD UREA NITROGEN 11 MG/DL (7-18); CALCIUM LEVEL 8.8 MG/DL (8.5-10.1); CARBON DIOXIDE LEVEL 31 MEQ/L (21-32); CHLORIDE LEVEL 98 MEQ/L (98-107); CREATININE FOR GFR 0.88 MG/DL (0.55-1.02); GLOMERULAR FILTRATION RATE > 60.0 (>60); GLUCOSE, FASTING 131 MG/DL (70-105); MAGNESIUM LEVEL 2.1 MG/DL (1.8-2.4); POTASSIUM SERUM 3.9 MEQ/L (3.5-5.1); SODIUM LEVEL 136 MEQ/L (136-145); TOTAL PROTEIN 6.7 GM/DL (6.4-8.2)
[2017-03-06 05:58] LABS: ERYTHROCYTE SEDIMENTATION RATE 82 mm/hr (0-20)
[2017-03-06 05:59] LABS: DIGOXIN LEVEL 0.7 NG/ML (0.5-2.0)
[2017-03-06] MEDS ORDERED: BISACODYL 10 MG SUPP PR PRN (08:00)
[2017-03-06] MEDS: PANTOPRAZOLE 40MG TAB (PROTONIX) PO SCH (09:42)
[2017-03-06] MEDS: SENOKOT S TAB PO SCH ×2 (09:42→21:08)
[2017-03-06] MEDS: PREGABALIN 75 MG CAP(LYRICA) PO SCH ×2 (09:42→21:08)
[2017-03-06] MEDS: BACLOFEN 10 MG TAB PO SCH ×3 (09:42→21:00)
[2017-03-06] MEDS: ENOXAPARIN 40 MG/0.4 ML SYRINGE (J1650) SC SCH (09:43)
[2017-03-06] MEDS: FLECAINIDE 50MG TABLET PO SCH (10:42)
--- NOTE | 2017-03-06 11:52 | IPNPDOC ---
Subjective Date Seen The patient was seen on 03/06/17. Subjective Chief Complaint/HPI The patient is a 36-year-old female admitted with a reason for visit of Junctional Tachycardia,Orthostatic Hypotension. Events since last encounter No further complaints today , still has not had a bowel movement , telemetr no new findings. no fever or chills, no cough or phlegm , no chest pain , no nausea or vomiting or light headedness, working with PT. Objective Physical Examination General Exam: Positive: Alert, Cooperative, No Acute Distress Eye Exam: Positive: PERRLA, Conjunctiva & lids normal, EOMI, Negative: Sclera icteric ENT Exam: Positive: Atraumatic, Mucous membr. moist/pink, Pharynx Normal Neck Exam: Positive: Supple, Negative: JVD, thyromegaly Chest Exam: Positive: Clear to auscultation, Normal air movement Heart Exam: Positive: Tachycardic, Regular Rhythm, Normal S1, Normal S2 Telemetry: Positive: Tachycardia (junctional) Abdomen Exam: Positive: Normal bowel sounds, Soft, Negative: Tenderness, Hepatospenomegaly Extremity Exam: Positive: Normal pulses, Negative: Clubbing, Cyanosis, Edema Skin Exam: Positive: Nl turgor and temperature, Negative: Rash, Breakdown Assessment /Plan Problems (1) Suspected Lyme disease Status: Acute Problem Text: patient now remembered that she was bitten by a tick 2 to 3 weeks ago and also 2 years ago. Her joint pains and cardiological symptoms and junctional tachy could be related to lyme disease. Ordered lyme titers. If positive will need 3 weeks of doxycycline. (2) Junctional tachycardia Status: Acute Problem Text: continue digoxin and flecainide. will get a event recorder after dc from Dr Gold's office. and to follow with corduroy brusher operator after discharge. (3) Orthostatic hypotension Status: Resolved Problem Text: presented with dizziness, light headedness and presyncope. 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 (5) GERD (gastroesophageal reflux disease) Status: Chronic (6) Cervical cancer Status: Chronic Problem Text: - s/p Chemotherapy and Radiation from jun 2016 to aug 2016; Follows with Dr. Miller and Dr. Hurtado; - s/p Dr. Morris for chemotherapy - s/p Dr. Mancilla for radiation (7) Chest pain Status: Acute Problem Text: possibly musculoskeletal in etiology - Physical reveals reproducible chest pain and pain worsened with arm movement. - EKG from 03/03: reveals some ST depressions in leads V1 - V5; T wave inversions noted in III and AvF - Cardiac enzymes negative on all sets; will trend enzymes 2 more times - CTA chest 02/28: negative for PE - ECHO 03/02: Normal Systolic function, trace AR, mild MR, mild TR, normal calculated pulmonary artery systolic pressure on percocet. (8) Transaminitis Status: Resolved Problem Text: etiology undetermined could be ketorolac mediated. Plan/VTE VTE Prophylaxis Ordered?: Yes VS, I&O, 24H, Fishbone Vital Signs/I&O Vital Signs Date Time Temp Pulse Resp B/P (MAP) Pulse Ox O2 Delivery O2 Flow Rate FiO2 03/06/17 10:46 18 03/06/17 08:00 91 110/65 (80) 88 103/62 (76) 89 112/66 (81) 03/06/17 08:00 99.1 99 Room Air I&O- Last 24 Hours up to 6 AM 03/06/17 06:00 Intake Total 360 ml Output Total 2525 ml Balance -2165 ml Laboratory Data 24H LABS Laboratory Tests 2 03/06/17 05:12: White Blood Count 4.0, Red Blood Count 4.13, Hemoglobin 12.2, Hematocrit 37.0, Mean Corpuscular Volume 89.7, Mean Corpuscular Hemoglobin 29.7, Mean Corpuscular Hemoglobin Concent 33.1, Red Cell Distribution Width 13.4, Platelet Count 300, Neutrophils (%) (Auto) 77.9H, Lymphocytes (%) (Auto) 9.3L, Monocytes (%) (Auto) 3.7, Eosinophils (%) (Auto) 7.9H, Basophils (%) (Auto) 0.2, Neutrophils # (Auto) 3.1, Lymphocytes # (Auto) 0.4L, Monocytes # (Auto) 0.2, Eosinophils # (Auto) 0.3, Basophils # (Auto) 0.0, Large Unclassified Cells % 0.9 , Large Unclassified Cells # 0.0, Erythrocyte Sedimentation Rate 82H, Anion Gap 7L, Glomerular Filtration Rate > 60.0, Blood Urea Nitrogen 11, Creatinine 0.88, Sodium Level 136, Potassium Level 3.9, Chloride Level 98, Carbon Dioxide Level 31, Calcium Level 8.8, Aspartate Amino Transf (AST/SGOT) 26, Alanine Aminotransferase (ALT/SGPT) 73, Alkaline Phosphatase 160H, Total Bilirubin 0.2, Total Protein 6.7, Albumin 2.8L, Magnesium Level 2.1, Troponin I < 0.02, C- Reactive Protein, Quantitative 11.20H, Albumin/Globulin Ratio 0.72L, Digoxin Level 0.7 CBC/BMP Laboratory Tests 03/06/17 05:12 Red Blood Count 4.13, Mean Corpuscular Volume 89.7, Mean Corpuscular Hemoglobin 29.7, Mean Corpuscular Hemoglobin Concent 33.1, Red Cell Distribution Width 13.4 , Neutrophils (%) (Auto) 77.9 H, Lymphocytes (%) (Auto) 9.3 L, Monocytes (%) ( Auto) 3.7, Eosinophils (%) (Auto) 7.9 H, Basophils (%) (Auto) 0.2, Neutrophils # (Auto) 3.1, Lymphocytes # (Auto) 0.4 L, Monocytes # (Auto) 0.2, Eosinophils # (Auto) 0.3, Basophils # (Auto) 0.0, Calcium Level 8.8, Aspartate Amino Transf ( AST/SGOT) 26, Alanine Aminotransferase (ALT/SGPT) 73, Alkaline Phosphatase 160 H , Total Bilirubin 0.2, Total Protein 6.7, Albumin 2.8 L BERNARDINO ZHAO MD Mar 06, 2017 11:52
[2017-03-06] MEDS: NYSTATIN 500,000 U/5 ML SUSP UDC PO SCH (21:00)
--- NOTE | 2017-03-06 21:02 | IPN ---
DATE: 03/06/2017 Mrs. Mcdonald was seen earlier this morning. She was lying supine in bed in no acute distress at rest. She was having physical therapy. She denied any chest pain when I saw her. She continued to complain of rapid heart rate with activities. There is no orthopnea, paroxysmal nocturnal dyspnea (PND), pedal edema. There is no focal manifestation. She has no cough. PHYSICAL EXAMINATION: Patient is alert and oriented in no acute distress at rest. VITAL SIGNS: When I saw her this morning revealed a blood pressure of 110/65 in supine and upon standing up it was 112/66 with a pulse that varies between 88-91 , respirations 18, and her maximum temperature was 91.1 degrees Fahrenheit this morning with an oxygen saturation of 99% on room air. She was in a negative fluid balance of 2.3 liters for 03/05/2017. HEAD, EYES, EARS, NOSE, AND THROAT: Atraumatic. NECK: Supple. No jugular venous distention (JVD). No carotid bruits. LUNGS: Clear bilaterally on auscultation without any wheezing or crackles. HEART: Reveal normal S1, S2 without gallops. The point of maximal impulse (PMI) is not displaced. There is no rub. ABDOMEN: Appeared to be unremarkable. EXTREMITIES: Revealed no pedal edema. NEUROLOGIC: Negative for focal deficit. LABORATORY DATA: CBC revealed WBC of 4.0, hemoglobin 12.2, hematocrit 37.0, and platelets 300,000. BMP revealed a sodium of 146, potassium 3.9, chloride 98, CO2 of 31, BUN 11, creatinine 0.88, GFR more than 60, fasting glucose 131, calcium 8.8. Serum magnesium is 2.1. Liver enzymes revealed a total bilirubin of 0.2, AST 26, ALT 73, alkaline phosphatase 160, total protein 6.7, albumin 2.8. Serum troponin was less than 0.02. Serum C-reactive protein is 11.20. Serum digoxin is 0.7. Mrs. Tammy Mcdonald happens to be stable from a cardiac point of view. Her symptoms are improved, and the etiology is not quite clear. She was admitted with a narrow complex tachycardia that seemed to be junctional tachycardia. Her heart rate has improved, and case was discussed with her hospitalist. If she continues to be stable, she can be discharged home tomorrow. She will have an event recorded. The flecainide will be discontinued. This morning, she stated that she had a recent tick bite, and I will do a Lyme titer, and we will follow it as outpatient if she is discharged home tomorrow, 03/07/2017. After seeing her at the office, she will be referred to [facility]. Please do not hesitate to call if any questions. MIGNON
[2017-03-07] MEDS: MECLIZINE 25 MG TABLET PO PRN ×2 (00:10→12:35)
[2017-03-07] MEDS: ONDANSETRON 4MG/2ML VIAL (J2405) IV PRN (00:10)
[2017-03-07 04:45] VITALS: BP 111/60
[2017-03-07] MEDS: SLF 3 ML SYR IV SCH ×2 (05:16→14:00)
[2017-03-07 05:27] LABS: BASO % 0.2 % (0.0-1.0); EOS # 0.2 K/mm3 (0.0-0.50); EOS % 5.2 % (0.0-3.0); LARGE UNSTAINED CELL # 0.1 K/mm3 (0.0-0.4); LARGE UNSTAINED CELL % 1.8 % (0.0-4.0); LYMPH # 0.5 K/mm3 (1.5-4.5); LYMPH % 10.3 % (24.0-44.0); MEAN CORPUSCULAR HEMOGLOBIN 29.4 pg (27.0-33.0); MEAN CORPUSCULAR HGB CONC 33.5 g/dl (32.0-36.5); MEAN CORPUSCULAR VOLUME 87.7 fl (80.0-96.0); MONO # 0.2 K/mm3 (0.0-0.8); MONO % 4.5 % (0.0-5.0); NEUTROPHILS # 3.3 K/mm3 (1.8-7.7); NEUTROPHILS % 77.9 % (36.0-66.0); PLATELET COUNT, AUTOMATED 287 k/mm3 (150-450); RED CELL DISTRIBUTION WIDTH 13.4 % (11.5-14.5); WHITE BLOOD COUNT 4.3 K/mm3 (4.0-10.0)
[2017-03-07 05:47] LABS: ALBUMIN 2.5 GM/DL (3.2-5.2); ALBUMIN/GLOBULIN RATIO 0.61 (1.00-1.93); ALKALINE PHOSPHATASE 142 U/L (45-117); ALT/SGPT 60 U/L (12-78); ANION GAP 6 MEQ/L (8-16); AST/SGOT 25 U/L (15-37); BILIRUBIN,TOTAL 0.2 MG/DL (0.2-1.0); BLOOD UREA NITROGEN 10 MG/DL (7-18); CALCIUM LEVEL 8.8 MG/DL (8.5-10.1); CARBON DIOXIDE LEVEL 31 MEQ/L (21-32); CHLORIDE LEVEL 98 MEQ/L (98-107); CREATININE FOR GFR 0.78 MG/DL (0.55-1.02); GLOMERULAR FILTRATION RATE > 60.0 (>60); GLUCOSE, FASTING 89 MG/DL (70-105); MAGNESIUM LEVEL 2.1 MG/DL (1.8-2.4); POTASSIUM SERUM 3.7 MEQ/L (3.5-5.1); SODIUM LEVEL 135 MEQ/L (136-145); TOTAL PROTEIN 6.6 GM/DL (6.4-8.2)
[2017-03-07 05:59] LABS: ERYTHROCYTE SEDIMENTATION RATE 67 mm/hr (0-20)
[2017-03-07 08:00] VITALS: BP 116/64
[2017-03-07] MEDS ORDERED: SENN1TAB2 PO (08:57)
[2017-03-07] MEDS ORDERED: MECL-68 PO (08:57)
[2017-03-07] MEDS ORDERED: PERCOCET PO (08:57)
[2017-03-07] MEDS ORDERED: NYST50SS PO (08:57)
[2017-03-07] MEDS: ENOXAPARIN 40 MG/0.4 ML SYRINGE (J1650) SC SCH (09:03)
[2017-03-07] MEDS: PREGABALIN 75 MG CAP(LYRICA) PO SCH (09:03)
[2017-03-07] MEDS: BACLOFEN 10 MG TAB PO SCH ×2 (09:04→17:08)
[2017-03-07] MEDS: SENOKOT S TAB PO SCH (09:04)
[2017-03-07] MEDS: PANTOPRAZOLE 40MG TAB (PROTONIX) PO SCH (09:04)
[2017-03-07] MEDS: NYSTATIN 500,000 U/5 ML SUSP UDC PO SCH ×3 (09:05→17:02)
[2017-03-07] MEDS ORDERED: FLEET ENEMA PR ONE (14:15)
[2017-03-07] MEDS ORDERED: MAGNESIUM CITRATE 300 ML BTL PO ONE (17:00)
[2017-03-08 00:08] LABS: Lyme Disease IgG Ab 18 kDa Ban Present (.); Lyme Disease IgG Ab 23 kDa Ban Absent (.); Lyme Disease IgG Ab 28 kDa Ban Absent (.); Lyme Disease IgG Ab 30 kDa Ban Absent (.); Lyme Disease IgG Ab 39 kDa Ban Present (.); Lyme Disease IgG Ab 41 kDa Ban Present (.); Lyme Disease IgG Ab 45 kDa Ban Present (.); Lyme Disease IgG Ab 58 kDa Ban Absent (.); Lyme Disease IgG Ab 66 kDa Ban Present (.); Lyme Disease IgG Ab 93 kDa Ban Absent (.); Lyme Disease IgG West Blot Int Positive (.); Lyme Disease IgG/IgM Antibodie 1.52 ISR (0.00-0.90); Lyme Disease IgM Ab 23 kDa Ban Present (.); Lyme Disease IgM Ab 39 kDa Ban Present (.); Lyme Disease IgM Ab 41 kDa Ban Present (.); Lyme Disease IgM Ab Quantitati 6.82 index (0.00-0.79); Lyme Disease IgM West Blot Int Positive (.)
[2017-03-08] MEDS ORDERED: DOXY-278 PO (11:49)
[2017-03-10] MEDS ORDERED: MIRA3350 PO (07:21)
--- NOTE | 2017-03-10 19:39 | DSES ---
DATE OF ADMISSION: 02/28/2017 DATE OF DISCHARGE: 03/07/2017 PRIMARY CARE PROVIDER: At [facility]. HEALTH SERVICES MANAGER: Dr. Gold. DISCHARGE DIAGNOSES: 1. Lyme disease. 2. Junctional tachycardia. 3. Orthostatic hypotension. 4. Gastroesophageal reflux disease (GERD). 5. Chronic back pain with history of cervical disc disease and lumbar disc disease. 6. Cervical cancer, status post chemotherapy and radiation in [id number]. 7. Transaminitis, resolved. 8. Chest pain, thought to be musculoskeletal. DISCHARGE MEDICATIONS: - doxycycline 100 mg by mouth twice a day - meclizine 25 mg by mouth every eight hours as needed for dizziness - Nystatin suspension 5 mL by mouth four times a day - oxycodone/acetaminophen 5/325 1-2 tablets by mouth every eight hours as needed for pain - Senna Plus one tablet by mouth twice a day - amitriptyline 50 mg by mouth at bedtime - baclofen 10 mg by mouth three times a day - calcium carbonate 500 mg by mouth four times a day - estradiol - folic acid 400 mg by mouth daily - Lyrica 75 mg by mouth twice a day - MiraLAX one pack daily as needed for constipation HOSPITAL COURSE: This is a 36-year-old female who presented to the hospital with one-day history of lightheadedness, dizziness, shortness of breath, and chest pains, which have been progressing for one week and became very bad on the day of admission. She has been having presyncopal episodes when she was getting up to walk. She also complained of some neck pain, low back pain, as well as some knee pains. In the emergency room the patient was found to have junctional tachycardia and also she was noted to have orthostatic hypotension. The patient was monitored in the progressive care unit (PCU). However, her junctional tachycardia was very difficult to control. She was started on digoxin. The rate got better, but she still remained in junction rhythm. The patient was seen by Dr. Gold from cardiology. However, it was not making any difference so it was discontinued. The patient was also tried on flecainide, which also did not help, so the flecainide was discontinued. Towards the end of her hospital stay, the patient said that she was bitten by a tick 2-3 weeks ago, as well as two years ago, so Lyme titer was sent which subsequently came back positive, and patient was discharged with doxycycline three-week course. The patient will also follow with Dr. Gold's office to get event recorder, and also if does not improve after treatment for Lyme disease, the patient will be referred to aircraft part assembler in [place] for further evaluation. In the hospital, the patient was seen by physical therapy and was deemed to be at her functional baseline. On the day of discharge, the patient did not have any new complaints. Her vitals were stable, and she was functionally close to her baseline. PHYSICAL EXAMINATION: VITAL SIGNS: Temperature 97.5, pulse 89, respiratory rate 20, blood pressure 116/64, pulse oximetry 97% on room air. GENERAL: Patient is awake, alert, oriented times three sitting up in bed in no acute distress. HEENT: Normocephalic, atraumatic. Moist mucous membranes. Anicteric eyes. CHEST: Clear to auscultation. CARDIOVASCULAR: S1, S2. Regular. No rub, murmur or gallop. ABDOMEN: Soft. Nontender. Bowel sounds present. EXTREMITIES: No edema. LABORATORY DATA: WBC 4.3, hemoglobin 12, platelets 287. Sodium 135, potassium 3.7, chloride 98, bicarbonate 31, BUN 10, creatinine 0.7. Liver function test normal. CRP 8.48. Coagulation studies are normal. Serology for Lyme disease IgM and IgG are highly positive. Shoulder MRI showed mild supraspinatus tendinopathy and tendinitis. There was no rotator cuff tear or labral tear. This was similar to prior study. Cervical spine CT did not show any fracture or dislocation. The appearance of postsurgical findings at the site of anterior cervical discectomy and fusion at C5 to C7 is unchanged since the exam in 2016. CT angiogram of the chest did not show any pulmonary embolism. Chest examination was also not significant. DISPOSITION: The patient is discharged home in stable condition. DISCHARGE INSTRUCTIONS: The patient is to followup with primary care provider in one week. The patient will go to Dr. Gold's office after discharge to get an event recorder. Regular diet. Activity as tolerated.
[2017-06-05] MEDS ORDERED: CYCL10TA PO (22:11)
[2017-06-05] MEDS ORDERED: PERC5TAB12 PO (22:11)
[2017-06-05] MEDS ORDERED: MACR100C43 PO (22:11)
== END 2017-03-07 17:28 | disposition home or self-care (01) | DRG 868 ==
LOC: M ED 13:24 → M ED INP 19:50 → M PCU 23:02
PROVIDERS: ADMIT Internal Medicine; ATTEND Internal Medicine Nephrology
DX: A69.20 Lyme disease, unspecified (principal); I47.1 Supraventricular tachycardia; I95.1 Orthostatic hypotension; E86.1 Hypovolemia; K21.9 Gastro-esophageal reflux disease without esophagitis; R07.89 Other chest pain; Z79.899 Other long term (current) drug therapy; M54.5 Low back pain; G47.00 Insomnia, unspecified; Z85.41 Personal history of malignant neoplasm of cervix uteri; Z88.8 Allergy status to other drugs, medicaments and biological substances

== ENCOUNTER 2017-03-30 22:16 | Emergency (ER) | payer MEDICARE, MEDICAID ==
[~2017-03-30] VITALS: Ht 167.6 cm; Wt 29.6 kg
[~2017-03-30 22:16] MED LIST changes: +DOXY-278 PO; +ESTR1CRE PV; +FOLI400T PO; +MECL-68 PO; +MIRA3350 PO; +NYST50SS PO; +PERCOCET PO; +SENN1TAB2 PO
[2017-03-30] MEDS ORDERED: NS 1,000 ML IV ONE (23:30)
[2017-03-30 23:56] LABS: BASO % 0.2 % (0.0-1.0); EOS # 0.2 K/mm3 (0.0-0.50); EOS % 2.2 % (0.0-3.0); LARGE UNSTAINED CELL # 0.1 K/mm3 (0.0-0.4); LARGE UNSTAINED CELL % 0.9 % (0.0-4.0); LYMPH # 0.6 K/mm3 (1.5-4.5); LYMPH % 8.4 % (24.0-44.0); MEAN CORPUSCULAR HEMOGLOBIN 29.2 pg (27.0-33.0); MEAN CORPUSCULAR HGB CONC 33.7 g/dl (32.0-36.5); MEAN CORPUSCULAR VOLUME 86.6 fl (80.0-96.0); MONO # 0.3 K/mm3 (0.0-0.8); MONO % 4.6 % (0.0-5.0); NEUTROPHILS # 5.6 K/mm3 (1.8-7.7); NEUTROPHILS % 83.7 % (36.0-66.0); PLATELET COUNT, AUTOMATED 207 k/mm3 (150-450); RED CELL DISTRIBUTION WIDTH 14.3 % (11.5-14.5); WHITE BLOOD COUNT 6.7 K/mm3 (4.0-10.0)
[2017-03-30 23:59] LABS: CALCIUM OXALATE CRYSTALS SMALL
[2017-03-31 00:09] LABS: CONTROL LINE HCG INT CTR LINE PRESENT
[2017-03-31 00:15] LABS: ALBUMIN 3.4 GM/DL (3.2-5.2); ALBUMIN/GLOBULIN RATIO 0.92 (1.00-1.93); ALKALINE PHOSPHATASE 118 U/L (45-117); ALT/SGPT 65 U/L (12-78); ANION GAP 7 MEQ/L (8-16); AST/SGOT 34 U/L (15-37); BILIRUBIN,DIRECT < 0.1 MG/DL (0.0-0.2); BILIRUBIN,TOTAL 0.4 MG/DL (0.2-1.0); BLOOD UREA NITROGEN 14 MG/DL (7-18); CALCIUM LEVEL 8.9 MG/DL (8.5-10.1); CARBON DIOXIDE LEVEL 26 MEQ/L (21-32); CHLORIDE LEVEL 106 MEQ/L (98-107); GLOMERULAR FILTRATION RATE > 60.0 (>60); GLUCOSE, FASTING 122 MG/DL (70-105); POTASSIUM SERUM 4.4 MEQ/L (3.5-5.1); SODIUM LEVEL 139 MEQ/L (136-145); TOTAL PROTEIN 7.1 GM/DL (6.4-8.2)
--- NOTE | 2017-03-31 02:20 | REPUSA ---
CLINICAL HISTORY: Abdominal pain. TECHNIQUE: Multiple axial, sagittal and coronal CT images were obtained through the abdomen and pelvi s without administration of oral or IV contrast material. COMMENTS: Comparison is made to the prior exam performed on 08/13/2016 3 mm right renal nonobstructing stone. This was not present on prior exam. Unchanged diffuse thickening of the wall of the bladder. Unchanged fullness in the right collecting system. Interval appearance of diffuse thickening of the sigmoid colon. Moderate large bowel fecal stasis. The liver is of uniform attenuation without mass or defect. There is no intra or extrahepatic biliary ductal dilatation. The spleen is normal. The gallbladder is within normal limits. The pancreas is of normal contour and attenuation characteristics. There is no evidence of adrenal mass. The kidneys are normal in size, shape and configuration. No left renal or ureteral calculi are identi fied. There is no left hydroureter or hydronephrosis. There is no evidence for appendicitis. There is no bowel wall thickening. No evidence for small or la rge bowel obstruction. There is no evidence of abdominal ascites or lymphadenopathy. There is no evidence of intrinsic or extrinsic bladder mass. There is no pelvic ascites or lymphadeno ayde. Images of the lung bases show no evidence of pleural or parenchymal mass. There are no pleural effusi ons. The bony structures are free of lytic or blastic lesions. IMPRESSION: Comparison is made to the prior exam performed on 08/13/2016 3 mm right renal nonobstructing stone. This was not present on prior exam. Unchanged diffuse thickening of the wall of the bladder. Under distention versus cystitis. Unchanged fullness in the right collecting system. Recent passage of a calculus versus an ascending u rinary tract infection. Interval appearance of diffuse thickening of the sigmoid colon. Under distention, spasm versus mild c olitis. Moderate large bowel fecal stasis. Thank you for your kind referral of this patient.
[2017-03-31 02:57] VITALS: BP 129/81
[2017-06-05] MEDS ORDERED: CYCL10TA PO (22:11)
[2017-06-05] MEDS ORDERED: PERC5TAB12 PO (22:11)
[2017-06-05] MEDS ORDERED: MACR100C43 PO (22:11)
== END 2017-03-31 02:59 | disposition home or self-care (01) ==
LOC: M ED 22:16 → EDBD 22:16 → M ED 03-31 02:59
DX: R10.9 Unspecified abdominal pain (principal); Z87.442 Personal history of urinary calculi; N20.0 Calculus of kidney; K59.00 Constipation, unspecified; Z79.899 Other long term (current) drug therapy; Z88.8 Allergy status to other drugs, medicaments and biological substances

== ENCOUNTER 2017-05-30 12:31 | Emergency (ER) | payer MEDICARE, MEDICAID ==
[~2017-05-30] VITALS: Ht 167.6 cm; Wt 72.7 kg
[2017-05-30] MEDS ORDERED: BACL1TAB8 (12:50)
[2017-05-30] MEDS ORDERED: ZANA4TAB PO (13:41)
[2017-05-30] MEDS ORDERED: IBUP-1022 PO (13:41)
[2017-05-30 14:10] VITALS: BP 158/91
[2017-06-05] MEDS ORDERED: PERC5TAB12 PO (22:11)
[2017-06-05] MEDS ORDERED: MACR100C43 PO (22:11)
[2017-06-05] MEDS ORDERED: CYCL10TA PO (22:11)
== END 2017-05-30 14:14 | disposition home or self-care (01) ==
LOC: M ED 12:31
DX: M54.9 Dorsalgia, unspecified (principal); Z87.442 Personal history of urinary calculi; Z87.440 Personal history of urinary (tract) infections; K80.20 Calculus of gallbladder without cholecystitis without obstruction; Z88.8 Allergy status to other drugs, medicaments and biological substances

== ENCOUNTER 2017-06-25 17:35 | Emergency (ER) | payer MEDICARE, MEDICAID ==
[~2017-06-25] VITALS: Ht 167.6 cm; Wt 72.7 kg
[~2017-06-25 17:35] MED LIST changes: +BACL1TAB8; +CYCL10TA PO; +IBUP-1022 PO; +MACR100C43 PO; +PERC5TAB12 PO; +ZANA4TAB PO
[2017-06-25 20:12] LABS: CALCIUM OXALATE CRYSTALS SMALL
[2017-06-25] MEDS ORDERED: NS 1,000 ML IV ONE (20:30)
[2017-06-25] MEDS ORDERED: MORPHINE 2 MG/ML 1ML SYRINGE IV ONE (20:30)
[2017-06-25] MEDS ORDERED: ONDANSETRON 4MG/2ML VIAL (J2405) IV ONE (20:30)
[2017-06-25 21:21] LABS: BASO % 0.2 % (0.0-1.0); EOS # 0.1 10^3/uL (0.0-0.50); EOS % 2.3 % (0.0-3.0); IMMATURE GRANULOCYTE % 0.4 % (0-0); LYMPH # 0.7 10^3/uL (1.5-4.5); LYMPH % 14.6 % (24.0-44.0); MEAN CORPUSCULAR HEMOGLOBIN 28.2 pg (27.0-33.0); MEAN CORPUSCULAR HGB CONC 33.2 g/dl (32.0-36.5); MEAN CORPUSCULAR VOLUME 84.9 fl (80.0-96.0); MONO # 0.3 10^3/uL (0.0-0.8); MONO % 6.2 % (0.0-5.0); NEUTROPHILS # 3.7 10^3/uL (1.8-7.7); NEUTROPHILS % 76.3 % (36.0-66.0); PLATELET COUNT, AUTOMATED 214 10^3/uL (150-450); RED CELL DISTRIBUTION WIDTH 13.3 % (11.5-14.5); WHITE BLOOD COUNT 4.9 10^3/uL (4.0-10.0)
[2017-06-25 21:32] LABS: INR 0.98
[2017-06-25 21:42] LABS: CREATININE FOR GFR 1.12 MG/DL (0.55-1.02); GLOMERULAR FILTRATION RATE 58.3 (>60); POTASSIUM SERUM 3.7 MEQ/L (3.5-5.1)
[2017-06-25] MEDS ORDERED: ISOVUE-370 76% 100ML VIAL (Q9967) As Ordered ONE (21:46)
[2017-06-25] MEDS ORDERED: KETOROLAC 30 MG/ML VIAL (J1885) IV ONE (22:00)
--- NOTE | 2017-06-25 22:50 | REPUSA ---
CT of the abdomen and pelvis with and without contrast, CT urogram. Clinical statement: Pain. Technique: Multiple axial CT images were obtained from the base of the lungs through the floor of the pelvis utilizing 5 mm axial slices before and after administration of nonionic intravenous contrast. 3D, coronal and sagittal reconstructions were also obtained. Delayed images of the renal collecting system then urinary bladder were also obtained. Comparison: 03/31/2017 Findings: Chest: The visualized lung bases are clear. Abdomen: The liver, spleen, pancreas, gallbladder, and adrenal glands are unremarkable. There is mode rate right-sided hydronephrosis and hydroureter. A 1 mm obstructing stone is seen in the distal right ureter. Tiny punctate nonobstructing stones are seen in the right kidney as well. Delayed renal norm al excretion is seen in the left renal collecting system. The aorta is within normal limits. There is no evidence of abdominal lymphadenopathy or ascites. Pelvis: Moderate amount of stool fills the colon. The bowel is otherwise unremarkable, with no obstru ctive or inflammatory changes. The urinary bladder is within normal limits. The other pelvic structur es appear grossly intact. There is no evidence of pelvic lymphadenopathy or ascites. Bones: There are no suspicious osseous abnormalities seen. There is moderate degenerative disc diseas e with disc osteophyte complex and disc bulge at L5/S1. Impression: 1. Moderate right-sided hydronephrosis and hydroureter caused by a 1 mm stone obstructing at the righ t ureterovesical junction. Nonobstructing right renal nephrolithiasis is noted. 2. The left kidney and left renal collecting system appear unremarkable. 3. The urinary bladder is within normal limits. 4. Mild constipation. No obstructive or inflammatory bowel changes. 5. Moderate degenerative disc disease with disc osteophyte complex at L5/S1.
[2017-06-25] MEDS ORDERED: PERC5TAB12 PO (23:18)
[2017-06-25] MEDS ORDERED: FLOM5CAP PO (23:18)
[2017-06-25] MEDS ORDERED: ZOFR4TAB3 PO (23:22)
[2017-06-25 23:52] VITALS: BP 156/99
[2017-06-26] MEDS ORDERED: PERCOCET 5MG/325MG TAB PO ONE
== END 2017-06-26 00:04 | disposition home or self-care (01) ==
LOC: M ED 17:35
DX: N20.0 Calculus of kidney (principal); K59.00 Constipation, unspecified; Z86.73 Personal history of transient ischemic attack (TIA), and cerebral infarction without residual deficits; Z87.59 Personal history of other complications of pregnancy, childbirth and the puerperium; Z87.442 Personal history of urinary calculi; Z87.440 Personal history of urinary (tract) infections; G89.29 Other chronic pain; M54.9 Dorsalgia, unspecified; I95.9 Hypotension, unspecified; A69.20 Lyme disease, unspecified; Z85.41 Personal history of malignant neoplasm of cervix uteri; Z98.1 Arthrodesis status; M25.78 Osteophyte, vertebrae; M51.37 Other intervertebral disc degeneration, lumbosacral region; Z79.899 Other long term (current) drug therapy; Z88.8 Allergy status to other drugs, medicaments and biological substances
CPT/HCPCS: 74178; 80048; 81001; 83605; 85025; 85610; 96374; 96375; 99284; G0463; J1885; J2405; Q9967

== ENCOUNTER → 2017-07-01 | Outpatient (REF) | payer MEDICARE, MEDICAID ==
[~2017-07-01] MED LIST changes: +FLOM5CAP PO; +ZOFR4TAB3 PO
[2017-07-01 14:03] LABS: CALCIUM OXALATE CRYSTALS LARGE
== END ==
LOC: M SMT 13:10
PROVIDERS: ATTEND Nurse Practitioner Family
DX: N20.0 Calculus of kidney (principal)
CPT/HCPCS: 51798; 81001; 87086; G0463

== ENCOUNTER → 2017-07-17 | Outpatient (CLI) | payer MEDICARE, MEDICAID ==
--- NOTE | 2017-07-17 18:35 | REP ---
CT abdomen pelvis without contrast: 07/17/2017: Clinical history: Renal stone disease. Patient with known cervical cancer stage IV and prior salpingectomy. Comparison: CT 06/25/2017, noncontrast 03/31/2017. Technique: Renal stone protocol with coronal and sagittal reconstructions. No IV or oral contrast. Findings: CT abdomen lung bases are clear. Heart not enlarged and no pericardial thickening or effusion. Liver, spleen, gallbladder, stomach, pancreas, adrenal glands. The abdominal portion of colon are unremarkable. There is moderate retained stool in the colon. Small bowel loops intact. Aorta intact. There is some scattered periaortic nodes but no pathologic sized mesenteric nodes. No inflammatory changes or fluid/adenopathy adjacent to the pancreas. No hiatal hernia. The left kidney shows no mass or stone in the collecting system with a couple of tiny punctate densities in the pyramids lower pole, similar to previous study. The right kidney shows hydronephrosis. Extrarenal pelvis with hydroureter which is seen down to the level of the crossing the iliac vessels appears to be some adenopathy in the region of the iliac vessels, but the absence of contrast sat difficult to discern below this the ureter has normal caliber but there is also still a punctate calcification at the bladder wall/right UVJ. This is unchanged from 06/25/2017. No wall thickening other calcifications or masses. The right collecting system and ureter show no dilatation or stone. No destructive lesion or fracture. Metal densities that may relate to prior treatment for her known cervical carcinoma. Uterus anteverted, not enlarged. It is difficult to evaluate the adnexa without any contrast. Small bowel loops extend down into the pelvis abutting the adnexal regions however they are fairly symmetric bilaterally. Appendix seen and normal. No ascites. The rectum shows a thickened wall as does the distal sigmoid and this may relate to prior radiation and radiation enteritis. Impression: 1. There is a dilated right renal collecting system and ureter, which seems to extend down to the crossing of the ureter at the iliac vessels where there may be some adenopathy that is difficult determination to make in the absence of IV contrast. I am suspicious as the ureter is not seen below this point and that there remains a tiny punctate calcification in the bladder wall at the expected position of the UVJ on that right side, stable from multiple priors.. 2. Tiny punctate calcifications in the lower pole pyramids on the left without collecting system stone, hydronephrosis or hydroureter on the left. 3. There are metallic densities in the region of the cervix and thickening of the distal sigmoid and rectal wall, likely related to post treatment for known cervical carcinoma. Signed by Angel Barrett MD 07/17/2017 07:50 P
== END ==
LOC: M RAD 15:38
PROVIDERS: ATTEND Nurse Practitioner Family
DX: N28.89 Other specified disorders of kidney and ureter (principal); N32.89 Other specified disorders of bladder

== ENCOUNTER 2017-07-25 13:48 | Emergency (ER) | payer MEDICARE, MEDICAID ==
[~2017-07-25] VITALS: Ht 167.6 cm; Wt 68.2 kg
[2017-07-25] MEDS ORDERED: PERC5TAB12 (14:03)
[2017-07-25] MEDS ORDERED: FLOM5CAP (14:03)
[2017-07-25] MEDS ORDERED: ONDANSETRON 4MG/2ML VIAL (J2405) IV ONE (16:00)
[2017-07-25] MEDS ORDERED: KETOROLAC 30 MG/ML VIAL (J1885) IV ONE (16:00)
[2017-07-25 16:04] LABS: BASO % 0.2 % (0.0-1.0); EOS # 0.3 10^3/uL (0.0-0.50); EOS % 5.8 % (0.0-3.0); IMMATURE GRANULOCYTE % 0.9 % (0-0); LYMPH % 18.4 % (24.0-44.0); MEAN CORPUSCULAR HEMOGLOBIN 27.2 pg (27.0-33.0); MEAN CORPUSCULAR HGB CONC 32.9 g/dl (32.0-36.5); MEAN CORPUSCULAR VOLUME 82.6 fl (80.0-96.0); MONO # 0.3 10^3/uL (0.0-0.8); MONO % 5.1 % (0.0-5.0); NEUTROPHILS # 3.7 10^3/uL (1.8-7.7); NEUTROPHILS % 69.6 % (36.0-66.0); PLATELET COUNT, AUTOMATED 237 10^3/uL (150-450); WHITE BLOOD COUNT 5.3 10^3/uL (4.0-10.0)
[2017-07-25 16:23] LABS: CALCIUM LEVEL 8.9 MG/DL (8.5-10.1); CREATININE FOR GFR 1.13 MG/DL (0.55-1.02); GLOMERULAR FILTRATION RATE 57.7 (>60); POTASSIUM SERUM 3.9 MEQ/L (3.5-5.1)
[2017-07-25] MEDS ORDERED: MORPHINE 4 MG/ML 1ML SYRINGE IV ONE (16:45)
[2017-07-25] MEDS ORDERED: NS 1,000 ML IV ONE (17:00)
--- NOTE | 2017-07-25 17:20 | REP ---
CHEST, TWO VIEWS: COMPARISON: 02/28/2017. There is no evidence of acute infiltrate. No pleural effusion is seen. The heart is normal in size. The mediastinal silhouette is unremarkable. The visualized osseous structures are intact. Metallic plate and screws are seen in the lower cervical spine. IMPRESSION: No acute pulmonary disease. Signed by Clint Castrejon MD 07/26/2017 04:55 P
--- NOTE | 2017-07-25 19:50 | REPUSA ---
CLINICAL HISTORY: Abdominal pain. TECHNIQUE: Multiple axial, sagittal and coronal CT images were obtained through the abdomen and pelvi s without administration of oral or IV contrast material. COMMENTS: The liver is of uniform attenuation without mass or defect. There is no intra or extrahepatic biliary ductal dilatation. The spleen is normal. The gallbladder is within normal limits. The pancreas is of normal contour and attenuation characteristics. There is no evidence of adrenal mass. The kidneys are normal in size, shape and configuration. No left renal or ureteral calculi are identi fied. 2 mm calculus is noted at the right UVJ producing severe hydroureteronephrosis. There is no evidence for appendicitis. There is no bowel wall thickening. No evidence for small or la rge bowel obstruction. There is no evidence of abdominal ascites or lymphadenopathy. There is no evidence of intrinsic or extrinsic bladder mass. There is no pelvic ascites or lymphadeno ayde. Surgical clips are present in the pelvis. The uterus and ovaries are grossly normal Images of the lung bases show no evidence of pleural or parenchymal mass. There are no pleural effusi ons. The bony structures are free of lytic or blastic lesions. IMPRESSION: 2 mm calculus is noted at the right UVJ producing severe hydroureteronephrosis.
[2017-07-25] MEDS ORDERED: OXYC10TA12 PO (20:13)
[2017-07-25] MEDS ORDERED: TYLE325T5 PO (20:13)
--- NOTE | 2017-07-25 20:19 | ECGEPIP ---
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
[2017-07-25 20:23] VITALS: BP 149/87
[2017-07-29] MEDS ORDERED: MAPA325T2 PO (14:06)
[2017-07-29] MEDS ORDERED: ONDA4TAB5 PO (14:06)
== END 2017-07-25 20:36 | disposition home or self-care (01) ==
LOC: M ED 13:48
DX: N13.1 Hydronephrosis with ureteral stricture, not elsewhere classified (principal)
CPT/HCPCS: 71020; 74176; 80048; 81001; 85025; 85610; 87086; 93005; 96374; 96375; 99284; J1885; J2405

== ENCOUNTER 2017-08-02 05:43 | Day surgery (SDC) | payer MEDICARE, MEDICAID ==
[~2017-08-02] VITALS: Ht 167.6 cm; Wt 75.2 kg
[~2017-08-02 05:43] MED LIST changes: +FLOM5CAP; +MAPA325T2 PO; +ONDA4TAB5 PO; +OXYC10TA12 PO; +PERC5TAB12
[2017-08-02] MEDS ORDERED: LR 1,000 ML IV SCH ×2 (06:00→09:30)
[2017-08-02] MEDS ORDERED: LIDOCAINE 1% MDV 20ML VIAL SQ PRN (06:00)
[2017-08-02] MEDS ORDERED: CONRAY-60 60% 50ML VIAL (Q9961) As Ordered ONE (07:08)
[2017-08-02 07:10] LABS: CONTROL LINE UCG INT CTR LINE PRESENT
[2017-08-02] MEDS ORDERED: ONDANSETRON 4MG/2ML VIAL (J2405) As Ordered ONE ×2 (07:20→08:47)
[2017-08-02] MEDS ORDERED: METOCLOPRAMIDE INJ 10MG/2ML VIAL (J2765) As Ordered ONE (07:20)
[2017-08-02] MEDS ORDERED: LIDOCAINE 2% INJ 100 MG/5 ML SDV (FOR ANES.) As Ordered ONE (07:20)
[2017-08-02] MEDS ORDERED: MIDAZOLAM INJ 2 MG/2 ML VIAL (J2250) As Ordered ONE (07:20)
[2017-08-02] MEDS ORDERED: fentaNYL 100 MCG/2 ML INJECTION (J3010) As Ordered ONE ×2 (07:20→08:53)
[2017-08-02] MEDS ORDERED: KETOROLAC 60 MG/2 ML VIAL (J1885) As Ordered ONE (08:26)
[2017-08-02] MEDS ORDERED: dexameTHASONE 4 MG/ML 1ML VIAL (J1100) As Ordered ONE (08:26)
--- NOTE | 2017-08-02 08:43 | REP ---
Retrograde pyelogram: Three views. History: Right stent placement. 56 seconds of fluoroscopy time is reported. Findings: A sequence of three last image hold fluoroscopic spot radiographs of the abdomen document ureteral cannulation, contrast injection, and double pigtail ureteral stent placement. No laterality markers are visible. Signed by Mike Hughes MD 08/02/2017 08:49 A
[2017-08-02] MEDS ORDERED: PERCOCET 5MG/325MG TAB As Ordered ONE (08:53)
[2017-08-02] MEDS: PERCOCET 5MG/325MG TAB PO PRN ×2 (08:55→09:30)
[2017-08-02] MEDS: fentaNYL 100 MCG/2 ML INJECTION (J3010) IV PRN ×4 (08:55→09:10)
[2017-08-02] MEDS ORDERED: MORPHINE 10 MG/ML 1ML VIAL As Ordered ONE (09:19)
[2017-08-02] MEDS: MORPHINE 10 MG/ML 1ML VIAL IV PRN ×5 (09:20→09:40)
[2017-08-02] MEDS ORDERED: PERCOCET 5MG/325MG TAB PO PRN ×2 (09:30)
[2017-08-02] MEDS ORDERED: ONDANSETRON 4MG/2ML VIAL (J2405) IV PRN (09:30)
[2017-08-02] MEDS ORDERED: oxyBUTYnin 5 MG TAB PO PRN (09:30)
[2017-08-02] MEDS ORDERED: KETOROLAC 30 MG/ML VIAL (J1885) IV ONE (10:45)
[2017-08-02] MEDS ORDERED: ONDANSETRON 4 MG ORAL DISINTEGRATING TAB (S0181) PO ONE (13:00)
[2017-08-02] MEDS ORDERED: MORPHINE 2 MG/ML 1ML SYRINGE As Ordered ONE (13:08)
[2017-08-02] MEDS ORDERED: MORPHINE 4 MG/ML 1ML SYRINGE IV ONE (13:15)
[2017-08-02 15:00] VITALS: BP 148/83
--- NOTE | 2017-08-06 14:15 | RO ---
DATE OF PROCEDURE: 08/02/2017 PREPROCEDURE DIAGNOSIS: Right ureteral stone. POSTPROCEDURE DIAGNOSIS: Right ureteral stricture. PROCEDURE: Cystoscopy, right ureteroscopy with balloon dilation of ureteral stricture, right retrograde pyelogram with intraoperative interpretation of images, right ureteral stent placement. SURGEON: Dr. Gómez Saenz SKIN DIVER: None. ANESTHESIA: General. OPERATIVE INDICATIONS: This is a 37-year-old female who has had persistent right flank pain and hydronephrosis thought to be due to an obstructing 1-2 mm distal right ureteral stone. She was brought to the operating room today for treatment. DESCRIPTION OF PROCEDURE: The patient was brought to the operating room where general anesthesia was induced. Prophylactic antibiotics were infused. She was placed in dorsal lithotomy position and prepped and draped in the usual sterile fashion. A rigid cystoscope was then inserted into the urethral meatus and advanced to the bladder. A wire was then advanced up the right collecting system. Then went up the right collecting system with a flexible ureteroscope and of note within the distal ureter a very tiny stone was seen which passed easily. Within the mid ureter, there was a very narrow ureteral stricture. I shot a retrograde pyelogram at this point and only a small amount of contrast flowed past the stricture. It did appear that the stricture was approximately 3-4 cm in length. At this point, I advanced a balloon dilator over the wire and I balloon dilated in the area of the stricture several times, leaving the balloon inflated for at least a minute or two each time. Once that was done, I removed the balloon dilator and went back up the ureter with a ureteroscope and the stricture did appear to be opened in some areas, but there still did appear to be a somewhat tight area, this time only approximately 1 cm in length. At this point, the flexible ureteroscope was utilized to shoot another retrograde pyelogram and there was severe hydroureteronephrosis down to the level of the stricture. I then removed the flexible ureteroscope and then advanced the 7 Guyanese x 22-32 cm JJ-ureteral stent up the right collecting system over the wire. The wire was then removed and there were adequate curls of the stent in the right renal pelvis and in the bladder. The bladder was then emptied of all fluid and this marked the conclusion of the procedure. The patient was then taken out of the dorsal lithotomy position, awakened from anesthesia and transported to the recovery room in stable condition. Estimated blood loss: Minimal. Complications: None. Specimen: None. Plan: The patient's stent will be left in place for approximately 3-4 weeks, after which time we will remove it in the office and follow that up with a renal ultrasound to assess for resolution of hydronephrosis. I am concerned that the stricture is due to extrinsic compression. If that is the case, we might ultimately need to manage this by chronic ureteral stenting or nephrostomy tube.
== END 2017-08-02 15:15 | disposition home or self-care (01) ==
LOC: M SDC 05:43
PROVIDERS: ATTEND Urology
DX: N13.5 Crossing vessel and stricture of ureter without hydronephrosis (principal); M54.5 Low back pain; M89.9 Disorder of bone, unspecified; F32.9 Major depressive disorder, single episode, unspecified; A69.20 Lyme disease, unspecified; C53.9 Malignant neoplasm of cervix uteri, unspecified; K21.9 Gastro-esophageal reflux disease without esophagitis; R29.898 Other symptoms and signs involving the musculoskeletal system; I69.911 Memory deficit following unspecified cerebrovascular disease; Z88.8 Allergy status to other drugs, medicaments and biological substances; Z79.899 Other long term (current) drug therapy; Z87.442 Personal history of urinary calculi; Z92.3 Personal history of irradiation; Z92.21 Personal history of antineoplastic chemotherapy; Z87.891 Personal history of nicotine dependence
CPT/HCPCS: 52332; 74420; 84703; C1769; C1894; C2617; J0690; J1100; J1885; J2250; J2405; J3010; Q9961

== ENCOUNTER 2017-08-17 19:40 | Emergency (ER) | payer MEDICARE, MEDICAID ==
[2017-08-17 20:16] LABS: BASO % 0.2 % (0.0-1.0); EOS # 0.3 10^3/uL (0.0-0.50); EOS % 4.7 % (0.0-3.0); HEMATOCRIT 33.1 % (36.0-47.0); HEMOGLOBIN 11.1 g/dl (12.0-16.0); IMMATURE GRANULOCYTE % 0.3 % (0-0); LYMPH # 0.7 10^3/uL (1.5-4.5); LYMPH % 11.4 % (24.0-44.0); MEAN CORPUSCULAR HEMOGLOBIN 27.7 pg (27.0-33.0); MEAN CORPUSCULAR HGB CONC 33.5 g/dl (32.0-36.5); MEAN CORPUSCULAR VOLUME 82.5 fl (80.0-96.0); MONO # 0.3 10^3/uL (0.0-0.8); MONO % 5.1 % (0.0-5.0); NEUTROPHILS # 4.5 10^3/uL (1.8-7.7); NEUTROPHILS % 78.3 % (36.0-66.0); PLATELET COUNT, AUTOMATED 227 10^3/uL (150-450); RED BLOOD COUNT 4.01 10^6/uL (4.00-5.40); RED CELL DISTRIBUTION WIDTH 14.1 % (11.5-14.5); WHITE BLOOD COUNT 5.7 10^3/uL (4.0-10.0)
[2017-08-17] MEDS: MORPHINE 4 MG/ML 1ML SYRINGE IV (20:44)
[2017-08-17] MEDS: NS 1,000 ML IV (20:44)
[2017-08-17 20:55] LABS: KETONE, URINE AUTO RFX NEGATIVE (NEGATIVE); MUCUS, URINE RFX SMALL (NEGATIVE); NITRITE, URINE AUTO RFX NEGATIVE (NEGATIVE); RBC, URINE AUTO RFX 17 /HPF (0-3); SPECIFIC GRAVITY UR AUTO RFX 1.014 (1.002-1.035); SQUAM EPITHELIAL CELL UR AURFX 1 /HPF (0-6); WBC, URINE AUTO RFX 6 /HPF (0-3)
[2017-08-17 20:56] LABS: LEUKOCYTE ESTERASE UR AUTO RFX 2+ (NEGATIVE)
[2017-08-17 20:57] LABS: CONTROL LINE HCG INT CTR LINE PRESENT
[2017-08-17 21:00] LABS: HCG, SERUM QUALITATIVE POSITIVE (NEGATIVE)
[2017-08-17 21:04] LABS: ALBUMIN 3.6 GM/DL (3.2-5.2); ALBUMIN/GLOBULIN RATIO 0.92 (1.00-1.93); ALKALINE PHOSPHATASE 111 U/L (45-117); ALT/SGPT 15 U/L (12-78); ANION GAP 7 MEQ/L (8-16); AST/SGOT 17 U/L (7-37); BILIRUBIN,DIRECT < 0.1 MG/DL (0.0-0.2); BILIRUBIN,TOTAL 0.2 MG/DL (0.2-1.0); BLOOD UREA NITROGEN 12 MG/DL (7-18); CALCIUM LEVEL 8.9 MG/DL (8.5-10.1); CARBON DIOXIDE LEVEL 28 MEQ/L (21-32); CHLORIDE LEVEL 103 MEQ/L (98-107); CREATININE FOR GFR 0.87 MG/DL (0.55-1.02); GLOMERULAR FILTRATION RATE > 60.0 (>60); GLUCOSE, FASTING 107 MG/DL (70-105); LIPASE 80 U/L (73-393); POTASSIUM SERUM 4.2 MEQ/L (3.5-5.1); SODIUM LEVEL 138 MEQ/L (136-145); TOTAL PROTEIN 7.5 GM/DL (6.4-8.2)
[2017-08-17 21:24] LABS: HCG, SERUM QUANTITATIVE 10 MIU/ML
[2017-08-17] MEDS: metroNIDAZOLE (FLAGYL) 500 MG TAB PO (22:30)
[2017-08-17] MEDS: CIPROFLOXACIN 500 MG TAB PO (22:30)
== END 2017-08-17 23:12 | disposition home or self-care (01) ==
LOC: M ED 19:40
DX: K52.82 Eosinophilic colitis (principal); R31.9 Hematuria, unspecified; R30.0 Dysuria; F32.9 Major depressive disorder, single episode, unspecified; A69.20 Lyme disease, unspecified; M54.12 Radiculopathy, cervical region; M54.16 Radiculopathy, lumbar region; Z85.41 Personal history of malignant neoplasm of cervix uteri; Z98.1 Arthrodesis status; Z87.891 Personal history of nicotine dependence; Z88.8 Allergy status to other drugs, medicaments and biological substances

== ENCOUNTER 2017-08-18 00:09 | Inpatient (IN) | payer MEDICARE, MEDICAID ==
[2017-08-18] MEDS: HYDROmorphone HCL 1 MG/ML SYRINGE (J1170) IM (00:45)
[2017-08-18] MEDS: metroNIDAZOLE 500 MG in APPROPRIATE DILUENT 1 EA IV ×3 (04:14→21:14)
[2017-08-18] MEDS: D5W/0.9% SODIUM CHLORIDE 1,000 ML IV ×3 (04:14→23:48)
[2017-08-18] MEDS: MORPHINE 2 MG/ML 1ML SYRINGE IV ×6 (04:15→23:49)
[2017-08-18] MEDS: CIPROFLOXACIN 400 MG in APPROPRIATE DILUENT 1 EA IV ×2 (05:31→17:21)
[2017-08-18] MEDS: ENOXAPARIN 40 MG/0.4 ML SYRINGE (J1650) SC (08:47)
[2017-08-18] MEDS: ACETAMINOPHEN TAB 650MG DOSE (2X325MG) PO ×2 (15:58→21:13)
[2017-08-19] MEDS: ONDANSETRON 4MG/2ML VIAL (J2405) IV (00:38)
[2017-08-19] MEDS: metroNIDAZOLE 500 MG in APPROPRIATE DILUENT 1 EA IV ×3 (04:46→20:01)
[2017-08-19] MEDS: MORPHINE 2 MG/ML 1ML SYRINGE IV ×4 (04:47→20:02)
[2017-08-19] MEDS: CIPROFLOXACIN 400 MG in APPROPRIATE DILUENT 1 EA IV ×2 (05:13→17:24)
[2017-08-19 05:51] LABS: HEMATOCRIT 30.9 % (36.0-47.0); HEMOGLOBIN 10.2 g/dl (12.0-16.0); MEAN CORPUSCULAR HEMOGLOBIN 27.6 pg (27.0-33.0); MEAN CORPUSCULAR VOLUME 83.7 fl (80.0-96.0); PLATELET COUNT, AUTOMATED 205 10^3/uL (150-450); RED BLOOD COUNT 3.69 10^6/uL (4.00-5.40); RED CELL DISTRIBUTION WIDTH 14.3 % (11.5-14.5); WHITE BLOOD COUNT 4.2 10^3/uL (4.0-10.0)
[2017-08-19 06:13] LABS: ALBUMIN 2.9 GM/DL (3.2-5.2); ALBUMIN/GLOBULIN RATIO 0.74 (1.00-1.93); ALKALINE PHOSPHATASE 86 U/L (45-117); ALT/SGPT 11 U/L (12-78); ANION GAP 6 MEQ/L (8-16); AST/SGOT 10 U/L (7-37); BILIRUBIN,TOTAL 0.4 MG/DL (0.2-1.0); BLOOD UREA NITROGEN 5 MG/DL (7-18); CALCIUM LEVEL 8.6 MG/DL (8.5-10.1); CARBON DIOXIDE LEVEL 27 MEQ/L (21-32); CHLORIDE LEVEL 107 MEQ/L (98-107); CREATININE FOR GFR 0.89 MG/DL (0.55-1.02); GLOMERULAR FILTRATION RATE > 60.0 (>60); GLUCOSE, FASTING 202 MG/DL (70-105); MAGNESIUM LEVEL 1.8 MG/DL (1.8-2.4); POTASSIUM SERUM 3.4 MEQ/L (3.5-5.1); SODIUM LEVEL 140 MEQ/L (136-145); TOTAL PROTEIN 6.8 GM/DL (6.4-8.2)
[2017-08-19] MEDS: ENOXAPARIN 40 MG/0.4 ML SYRINGE (J1650) SC (08:14)
[2017-08-19] MEDS: INFLUENZA QUADRIVALENT PF VACCINE 0.5ML SYRINGE (90686) IM (08:15)
[2017-08-19] MEDS: SENOKOT S TAB PO ×2 (09:00→20:02)
[2017-08-19 09:59] LABS: HCG, SERUM QUANTITATIVE 9 MIU/ML
[2017-08-19] MEDS: D5W/0.9% SODIUM CHLORIDE 1,000 ML IV (12:25)
[2017-08-19] MEDS: PERCOCET 5MG/325MG TAB PO ×3 (12:40→22:02)
[2017-08-20] MEDS: MORPHINE 2 MG/ML 1ML SYRINGE IV ×4 (00:02→15:31)
[2017-08-20] MEDS: D5W/0.9% SODIUM CHLORIDE 1,000 ML IV ×3 (01:58→15:30)
[2017-08-20] MEDS: PERCOCET 5MG/325MG TAB PO ×5 (02:06→22:26)
[2017-08-20] MEDS: metroNIDAZOLE 500 MG in APPROPRIATE DILUENT 1 EA IV ×3 (04:08→20:31)
[2017-08-20] MEDS: ONDANSETRON 4MG/2ML VIAL (J2405) IV ×3 (04:15→18:15)
[2017-08-20] MEDS: CIPROFLOXACIN 400 MG in APPROPRIATE DILUENT 1 EA IV ×2 (05:17→17:03)
[2017-08-20 06:18] LABS: HEMATOCRIT 31.7 % (36.0-47.0); HEMOGLOBIN 10.5 g/dl (12.0-16.0); MEAN CORPUSCULAR HEMOGLOBIN 27.3 pg (27.0-33.0); MEAN CORPUSCULAR HGB CONC 33.1 g/dl (32.0-36.5); MEAN CORPUSCULAR VOLUME 82.6 fl (80.0-96.0); PLATELET COUNT, AUTOMATED 209 10^3/uL (150-450); RED BLOOD COUNT 3.84 10^6/uL (4.00-5.40); RED CELL DISTRIBUTION WIDTH 14.2 % (11.5-14.5); WHITE BLOOD COUNT 3.9 10^3/uL (4.0-10.0)
[2017-08-20 06:49] LABS: ALBUMIN 2.9 GM/DL (3.2-5.2); ALBUMIN/GLOBULIN RATIO 0.71 (1.00-1.93); ALKALINE PHOSPHATASE 86 U/L (45-117); ALT/SGPT 11 U/L (12-78); ANION GAP 7 MEQ/L (8-16); AST/SGOT 9 U/L (7-37); BILIRUBIN,TOTAL 0.2 MG/DL (0.2-1.0); BLOOD UREA NITROGEN 4 MG/DL (7-18); CALCIUM LEVEL 8.7 MG/DL (8.5-10.1); CARBON DIOXIDE LEVEL 27 MEQ/L (21-32); CHLORIDE LEVEL 107 MEQ/L (98-107); GLOMERULAR FILTRATION RATE > 60.0 (>60); GLUCOSE, FASTING 111 MG/DL (70-105); MAGNESIUM LEVEL 1.8 MG/DL (1.8-2.4); POTASSIUM SERUM 3.2 MEQ/L (3.5-5.1); SODIUM LEVEL 141 MEQ/L (136-145)
[2017-08-20] MEDS: ENOXAPARIN 40 MG/0.4 ML SYRINGE (J1650) SC (08:11)
[2017-08-20] MEDS: SENOKOT S TAB PO ×2 (08:11→20:31)
[2017-08-20] MEDS: POTASSIUM CHLORIDE 10 MEQ SR TABLET PO (08:12)
[2017-08-20] MEDS: LACTULOSE 20 GM/30 ML SYRUP UD PO ×2 (17:00→20:31)
[2017-08-20] MEDS: MIRALAX *UNIT DOSE* 17GM PACKET PO ×3 (18:15→21:00)
[2017-08-20] MEDS: PROCHLORPERAZINE 5 MG TAB (S0183) PO (22:26)
[2017-08-21] MEDS: ONDANSETRON 4MG/2ML VIAL (J2405) IV ×3 (00:58→20:20)
[2017-08-21] MEDS: MORPHINE 2 MG/ML 1ML SYRINGE IV ×2 (00:59→08:11)
[2017-08-21] MEDS: metroNIDAZOLE 500 MG in APPROPRIATE DILUENT 1 EA IV ×3 (03:30→20:20)
[2017-08-21] MEDS: D5W/0.9% SODIUM CHLORIDE 1,000 ML IV ×2 (03:30→15:44)
[2017-08-21] MEDS: PERCOCET 5MG/325MG TAB PO ×3 (05:15→17:37)
[2017-08-21] MEDS: CIPROFLOXACIN 400 MG in APPROPRIATE DILUENT 1 EA IV ×2 (05:15→17:36)
[2017-08-21 07:04] LABS: HEMATOCRIT 32.1 % (36.0-47.0); HEMOGLOBIN 10.7 g/dl (12.0-16.0); MEAN CORPUSCULAR HEMOGLOBIN 27.2 pg (27.0-33.0); MEAN CORPUSCULAR HGB CONC 33.3 g/dl (32.0-36.5); MEAN CORPUSCULAR VOLUME 81.7 fl (80.0-96.0); PLATELET COUNT, AUTOMATED 224 10^3/uL (150-450); RED BLOOD COUNT 3.93 10^6/uL (4.00-5.40); RED CELL DISTRIBUTION WIDTH 14.2 % (11.5-14.5); WHITE BLOOD COUNT 4.1 10^3/uL (4.0-10.0)
[2017-08-21 07:32] LABS: ALBUMIN/GLOBULIN RATIO 0.71 (1.00-1.93); ALKALINE PHOSPHATASE 92 U/L (45-117); ALT/SGPT 13 U/L (12-78); ANION GAP 6 MEQ/L (8-16); AST/SGOT 9 U/L (7-37); BILIRUBIN,TOTAL 0.3 MG/DL (0.2-1.0); BLOOD UREA NITROGEN 6 MG/DL (7-18); CARBON DIOXIDE LEVEL 29 MEQ/L (21-32); CHLORIDE LEVEL 104 MEQ/L (98-107); GLOMERULAR FILTRATION RATE 59.5 (>60); GLUCOSE, FASTING 113 MG/DL (70-105); MAGNESIUM LEVEL 1.8 MG/DL (1.8-2.4); POTASSIUM SERUM 3.5 MEQ/L (3.5-5.1); SODIUM LEVEL 139 MEQ/L (136-145); TOTAL PROTEIN 7.2 GM/DL (6.4-8.2)
[2017-08-21] MEDS: SENOKOT S TAB PO ×2 (08:11→20:46)
[2017-08-21] MEDS: LACTULOSE 20 GM/30 ML SYRUP UD PO ×2 (08:11→20:46)
[2017-08-21] MEDS: ENOXAPARIN 40 MG/0.4 ML SYRINGE (J1650) SC (08:12)
[2017-08-21] MEDS: MIRALAX *UNIT DOSE* 17GM PACKET PO ×3 (11:34→20:27)
[2017-08-22] MEDS: PERCOCET 5MG/325MG TAB PO ×4 (00:08→22:46)
[2017-08-22] MEDS: LACTOBACILLUS ACIDOPHILUS CAP (BACID) PO ×3 (01:16→20:24)
[2017-08-22] MEDS: amLODIPine 5 MG TAB PO (01:17)
[2017-08-22] MEDS: ONDANSETRON 4MG/2ML VIAL (J2405) IV (02:35)
[2017-08-22] MEDS: D5W/0.9% SODIUM CHLORIDE 1,000 ML IV ×2 (02:38→10:13)
[2017-08-22] MEDS: metroNIDAZOLE 500 MG in APPROPRIATE DILUENT 1 EA IV (04:14)
[2017-08-22] MEDS: PROCHLORPERAZINE 5 MG TAB (S0183) PO (04:15)
[2017-08-22] MEDS: CIPROFLOXACIN 400 MG in APPROPRIATE DILUENT 1 EA IV (05:58)
[2017-08-22 07:42] LABS: HEMOGLOBIN 10.9 g/dl (12.0-16.0); MEAN CORPUSCULAR HEMOGLOBIN 27.3 pg (27.0-33.0); MEAN CORPUSCULAR VOLUME 82.7 fl (80.0-96.0); PLATELET COUNT, AUTOMATED 203 10^3/uL (150-450); RED BLOOD COUNT 3.99 10^6/uL (4.00-5.40); RED CELL DISTRIBUTION WIDTH 14.2 % (11.5-14.5); WHITE BLOOD COUNT 4.5 10^3/uL (4.0-10.0)
[2017-08-22 08:03] LABS: ALBUMIN 3.2 GM/DL (3.2-5.2); ALKALINE PHOSPHATASE 96 U/L (45-117); ALT/SGPT 14 U/L (12-78); ANION GAP 8 MEQ/L (8-16); AST/SGOT 13 U/L (7-37); BILIRUBIN,TOTAL 0.3 MG/DL (0.2-1.0); BLOOD UREA NITROGEN 5 MG/DL (7-18); CALCIUM LEVEL 8.8 MG/DL (8.5-10.1); CARBON DIOXIDE LEVEL 27 MEQ/L (21-32); CHLORIDE LEVEL 104 MEQ/L (98-107); CREATININE FOR GFR 1.12 MG/DL (0.55-1.02); GLOMERULAR FILTRATION RATE 58.3 (>60); GLUCOSE, FASTING 142 MG/DL (70-105); MAGNESIUM LEVEL 1.8 MG/DL (1.8-2.4); POTASSIUM SERUM 3.5 MEQ/L (3.5-5.1); SODIUM LEVEL 139 MEQ/L (136-145); TOTAL PROTEIN 7.2 GM/DL (6.4-8.2)
[2017-08-22] MEDS: LACTULOSE 20 GM/30 ML SYRUP UD PO ×2 (08:49→20:24)
[2017-08-22] MEDS: ENOXAPARIN 40 MG/0.4 ML SYRINGE (J1650) SC (08:50)
[2017-08-22] MEDS: SENOKOT S TAB PO ×2 (08:50→21:22)
[2017-08-22] MEDS ORDERED: amLODIPine 5 MG TAB PO (09:00)
[2017-08-22] MEDS: metroNIDAZOLE (FLAGYL) 500 MG TAB PO ×2 (14:25→20:24)
[2017-08-22] MEDS: CIPROFLOXACIN 500 MG TAB PO (17:53)
[2017-08-22] MEDS: MIRALAX *UNIT DOSE* 17GM PACKET PO (20:24)
[2017-08-22] MEDS: ONDANSETRON 4 MG TAB (S0181) PO (20:25)
[2017-08-23] MEDS: ACETAMINOPHEN TAB 650MG DOSE (2X325MG) PO (02:47)
[2017-08-23] MEDS: CIPROFLOXACIN 500 MG TAB PO ×2 (06:17→17:37)
[2017-08-23] MEDS: metroNIDAZOLE (FLAGYL) 500 MG TAB PO ×3 (06:17→21:53)
[2017-08-23] MEDS: PERCOCET 5MG/325MG TAB PO ×3 (06:18→18:27)
[2017-08-23] MEDS: ONDANSETRON 4 MG TAB (S0181) PO (06:18)
[2017-08-23 07:05] LABS: HEMATOCRIT 34.5 % (36.0-47.0); HEMOGLOBIN 11.6 g/dl (12.0-16.0); MEAN CORPUSCULAR HEMOGLOBIN 27.5 pg (27.0-33.0); MEAN CORPUSCULAR HGB CONC 33.6 g/dl (32.0-36.5); MEAN CORPUSCULAR VOLUME 81.8 fl (80.0-96.0); PLATELET COUNT, AUTOMATED 233 10^3/uL (150-450); RED BLOOD COUNT 4.22 10^6/uL (4.00-5.40); RED CELL DISTRIBUTION WIDTH 14.2 % (11.5-14.5); WHITE BLOOD COUNT 4.5 10^3/uL (4.0-10.0)
[2017-08-23 07:25] LABS: ALBUMIN 3.3 GM/DL (3.2-5.2); ALBUMIN/GLOBULIN RATIO 0.83 (1.00-1.93); ALKALINE PHOSPHATASE 95 U/L (45-117); ALT/SGPT 13 U/L (12-78); ANION GAP 8 MEQ/L (8-16); AST/SGOT 12 U/L (7-37); BILIRUBIN,TOTAL 0.3 MG/DL (0.2-1.0); BLOOD UREA NITROGEN 8 MG/DL (7-18); CALCIUM LEVEL 9.2 MG/DL (8.5-10.1); CARBON DIOXIDE LEVEL 28 MEQ/L (21-32); CHLORIDE LEVEL 102 MEQ/L (98-107); CREATININE FOR GFR 1.18 MG/DL (0.55-1.02); GLOMERULAR FILTRATION RATE 54.9 (>60); GLUCOSE, FASTING 110 MG/DL (70-105); MAGNESIUM LEVEL 2.1 MG/DL (1.8-2.4); POTASSIUM SERUM 3.6 MEQ/L (3.5-5.1); SODIUM LEVEL 138 MEQ/L (136-145); TOTAL PROTEIN 7.3 GM/DL (6.4-8.2)
[2017-08-23 08:40] LABS: C REACTIVE PROTEIN QUANTITATIV 3.54 MG/DL (0.00-0.30)
[2017-08-23] MEDS: GOLYTELY SOLN 4000 ML BTL PO (09:17)
[2017-08-23] MEDS: SENOKOT S TAB PO ×2 (09:17→21:53)
[2017-08-23] MEDS: MIRALAX *UNIT DOSE* 17GM PACKET PO (09:17)
[2017-08-23] MEDS: LACTOBACILLUS ACIDOPHILUS CAP (BACID) PO ×2 (09:18→21:53)
[2017-08-23] MEDS: LACTULOSE 20 GM/30 ML SYRUP UD PO ×2 (09:18→21:52)
[2017-08-23] MEDS: PROCHLORPERAZINE 5 MG TAB (S0183) PO (10:30)
[2017-08-23] MEDS: ENOXAPARIN 40 MG/0.4 ML SYRINGE (J1650) SC (18:23)
[2017-08-24] MEDS: PERCOCET 5MG/325MG TAB PO ×4 (00:55→19:12)
[2017-08-24 02:59] LABS: APPEARANCE, URINE CLEAR (CLEAR); BACTERIA, URINE AUTO NEGATIVE (NEGATIVE); BILIRUBIN, URINE AUTO NEGATIVE (NEGATIVE); BLOOD, URINE BLOOD 2+ (NEGATIVE); COLOR, URINE YELLOW (YELLOW); GLUCOSE, URINE (UA) AUTO NEGATIVE (NEGATIVE); KETONE, URINE AUTO NEGATIVE (NEGATIVE); LEUKOCYTE ESTERASE, URINE AUTO 1+ (NEGATIVE); MUCUS, URINE SMALL (NEGATIVE); NITRITE, URINE AUTO NEGATIVE (NEGATIVE); PROTEIN, URINE AUTO NEGATIVE (NEGATIVE); RBC, URINE AUTO 7 /HPF (0-3); SPECIFIC GRAVITY URINE AUTO 1.006 (1.002-1.035); SQUAMOUS EPITHELIAL CELL UR AU 1 /HPF (0-6); UROBILINOGEN, URINE AUTO 0.2 mg/dL (0.0-2.0); WBC, URINE AUTO 8 /HPF (0-3)
[2017-08-24] MEDS: metroNIDAZOLE (FLAGYL) 500 MG TAB PO ×3 (05:37→21:26)
[2017-08-24] MEDS: CIPROFLOXACIN 500 MG TAB PO ×2 (05:37→18:35)
[2017-08-24 06:49] LABS: HEMATOCRIT 34.7 % (36.0-47.0); HEMOGLOBIN 11.6 g/dl (12.0-16.0); MEAN CORPUSCULAR HEMOGLOBIN 27.2 pg (27.0-33.0); MEAN CORPUSCULAR HGB CONC 33.4 g/dl (32.0-36.5); MEAN CORPUSCULAR VOLUME 81.5 fl (80.0-96.0); PLATELET COUNT, AUTOMATED 234 10^3/uL (150-450); RED BLOOD COUNT 4.26 10^6/uL (4.00-5.40); RED CELL DISTRIBUTION WIDTH 14.2 % (11.5-14.5); WHITE BLOOD COUNT 4.6 10^3/uL (4.0-10.0)
[2017-08-24 07:24] LABS: ALBUMIN 3.3 GM/DL (3.2-5.2); ALBUMIN/GLOBULIN RATIO 0.83 (1.00-1.93); ALKALINE PHOSPHATASE 95 U/L (45-117); ALT/SGPT 16 U/L (12-78); ANION GAP 5 MEQ/L (8-16); AST/SGOT 10 U/L (7-37); BILIRUBIN,TOTAL 0.2 MG/DL (0.2-1.0); BLOOD UREA NITROGEN 11 MG/DL (7-18); C REACTIVE PROTEIN QUANTITATIV 2.89 MG/DL (0.00-0.30); CALCIUM LEVEL 8.7 MG/DL (8.5-10.1); CARBON DIOXIDE LEVEL 30 MEQ/L (21-32); CHLORIDE LEVEL 100 MEQ/L (98-107); CREATININE FOR GFR 1.17 MG/DL (0.55-1.02); GLOMERULAR FILTRATION RATE 55.4 (>60); GLUCOSE, FASTING 119 MG/DL (70-105); MAGNESIUM LEVEL 1.9 MG/DL (1.8-2.4); POTASSIUM SERUM 3.4 MEQ/L (3.5-5.1); SODIUM LEVEL 135 MEQ/L (136-145); TOTAL PROTEIN 7.3 GM/DL (6.4-8.2)
[2017-08-24] MEDS: MIRALAX *UNIT DOSE* 17GM PACKET PO (09:00)
[2017-08-24] MEDS: LACTULOSE 20 GM/30 ML SYRUP UD PO ×3 (10:00→21:26)
[2017-08-24] MEDS: POTASSIUM CHLORIDE 10 MEQ SR TABLET PO (10:01)
[2017-08-24] MEDS: LACTOBACILLUS ACIDOPHILUS CAP (BACID) PO ×2 (10:01→21:26)
[2017-08-24] MEDS: SENOKOT S TAB PO ×2 (10:02→21:27)
[2017-08-24] MEDS: ENOXAPARIN 40 MG/0.4 ML SYRINGE (J1650) SC (10:03)
[2017-08-24] MEDS: FLEET ENEMA PR ×2 (15:54→20:06)
[2017-08-24] MEDS: **hydrALAZINE HCL** 25 MG TAB PO ×2 (16:00→20:07)
[2017-08-25] MEDS: PERCOCET 5MG/325MG TAB PO ×4 (00:33→19:22)
[2017-08-25] MEDS: metroNIDAZOLE (FLAGYL) 500 MG TAB PO ×3 (06:24→21:51)
[2017-08-25] MEDS: CIPROFLOXACIN 500 MG TAB PO ×2 (06:24→18:14)
[2017-08-25 07:13] LABS: HEMATOCRIT 37.5 % (36.0-47.0); HEMOGLOBIN 12.4 g/dl (12.0-16.0); MEAN CORPUSCULAR HEMOGLOBIN 27.3 pg (27.0-33.0); MEAN CORPUSCULAR HGB CONC 33.1 g/dl (32.0-36.5); MEAN CORPUSCULAR VOLUME 82.4 fl (80.0-96.0); PLATELET COUNT, AUTOMATED 238 10^3/uL (150-450); RED BLOOD COUNT 4.55 10^6/uL (4.00-5.40); RED CELL DISTRIBUTION WIDTH 14.4 % (11.5-14.5); WHITE BLOOD COUNT 4.9 10^3/uL (4.0-10.0)
[2017-08-25 07:36] LABS: ALBUMIN 3.6 GM/DL (3.2-5.2); ALBUMIN/GLOBULIN RATIO 0.97 (1.00-1.93); ALKALINE PHOSPHATASE 103 U/L (45-117); ALT/SGPT 15 U/L (12-78); ANION GAP 6 MEQ/L (8-16); AST/SGOT 13 U/L (7-37); BILIRUBIN,TOTAL 0.3 MG/DL (0.2-1.0); BLOOD UREA NITROGEN 11 MG/DL (7-18); C REACTIVE PROTEIN QUANTITATIV 2.96 MG/DL (0.00-0.30); CALCIUM LEVEL 9.3 MG/DL (8.5-10.1); CARBON DIOXIDE LEVEL 30 MEQ/L (21-32); CHLORIDE LEVEL 100 MEQ/L (98-107); CREATININE FOR GFR 1.15 MG/DL (0.55-1.02); GLOMERULAR FILTRATION RATE 56.5 (>60); GLUCOSE, FASTING 103 MG/DL (70-105); POTASSIUM SERUM 3.8 MEQ/L (3.5-5.1); SODIUM LEVEL 136 MEQ/L (136-145); TOTAL PROTEIN 7.3 GM/DL (6.4-8.2)
[2017-08-25] MEDS: LACTULOSE 20 GM/30 ML SYRUP UD PO ×2 (09:10→20:23)
[2017-08-25] MEDS: **hydrALAZINE HCL** 25 MG TAB PO ×3 (09:11→20:24)
[2017-08-25] MEDS: MIRALAX *UNIT DOSE* 17GM PACKET PO ×3 (09:11→21:51)
[2017-08-25] MEDS: ENOXAPARIN 40 MG/0.4 ML SYRINGE (J1650) SC (09:12)
[2017-08-25] MEDS: LACTOBACILLUS ACIDOPHILUS CAP (BACID) PO ×2 (09:12→20:23)
[2017-08-25] MEDS: SENOKOT S TAB PO ×2 (09:12→21:51)
[2017-08-25] MEDS: ONDANSETRON 4 MG TAB (S0181) PO ×2 (09:42→23:16)
[2017-08-25] MEDS: FLEET ENEMA PR ×2 (12:01→21:52)
[2017-08-26] MEDS ORDERED: METOCLOPRAMIDE INJ 10MG/2ML VIAL (J2765) IV (00:30)
[2017-08-26] MEDS: MECLIZINE 12.5 MG TAB PO (00:44)
[2017-08-26] MEDS: PERCOCET 5MG/325MG TAB PO ×4 (02:32→21:38)
[2017-08-26] MEDS: metroNIDAZOLE (FLAGYL) 500 MG TAB PO ×3 (06:58→21:38)
[2017-08-26] MEDS: CIPROFLOXACIN 500 MG TAB PO ×2 (06:58→17:49)
[2017-08-26 07:51] LABS: C REACTIVE PROTEIN QUANTITATIV 2.34 MG/DL (0.00-0.30)
[2017-08-26 07:54] LABS: HEMATOCRIT 34.4 % (36.0-47.0); HEMOGLOBIN 11.4 g/dl (12.0-16.0); MEAN CORPUSCULAR HEMOGLOBIN 27.4 pg (27.0-33.0); MEAN CORPUSCULAR HGB CONC 33.1 g/dl (32.0-36.5); MEAN CORPUSCULAR VOLUME 82.7 fl (80.0-96.0); PLATELET COUNT, AUTOMATED 233 10^3/uL (150-450); RED BLOOD COUNT 4.16 10^6/uL (4.00-5.40); RED CELL DISTRIBUTION WIDTH 14.3 % (11.5-14.5); WHITE BLOOD COUNT 5.2 10^3/uL (4.0-10.0)
[2017-08-26 08:05] LABS: ANION GAP 7 MEQ/L (8-16); BLOOD UREA NITROGEN 10 MG/DL (7-18); CALCIUM LEVEL 8.8 MG/DL (8.5-10.1); CARBON DIOXIDE LEVEL 31 MEQ/L (21-32); CHLORIDE LEVEL 99 MEQ/L (98-107); CREATININE FOR GFR 1.22 MG/DL (0.55-1.02); GLOMERULAR FILTRATION RATE 52.8 (>60); GLUCOSE, FASTING 105 MG/DL (70-105); POTASSIUM SERUM 3.3 MEQ/L (3.5-5.1); SODIUM LEVEL 137 MEQ/L (136-145)
[2017-08-26] MEDS: LACTULOSE 20 GM/30 ML SYRUP UD PO ×2 (08:48→21:39)
[2017-08-26] MEDS: LACTOBACILLUS ACIDOPHILUS CAP (BACID) PO ×2 (08:48→21:38)
[2017-08-26] MEDS: SENOKOT S TAB PO ×3 (08:49→21:37)
[2017-08-26] MEDS: FLEET ENEMA PR ×2 (08:49→20:16)
[2017-08-26] MEDS: MIRALAX *UNIT DOSE* 17GM PACKET PO ×3 (08:49→20:16)
[2017-08-26] MEDS: **hydrALAZINE HCL** 25 MG TAB PO ×3 (08:50→21:37)
[2017-08-26] MEDS: ENOXAPARIN 40 MG/0.4 ML SYRINGE (J1650) SC (08:52)
[2017-08-26] MEDS: POTASSIUM CHLORIDE 10 MEQ SR TABLET PO (11:28)
[2017-08-26] MEDS ORDERED: FUROSEMIDE 20 MG/2 ML VIAL (J1940) As Ordered (14:15)
[2017-08-26] MEDS: D5W/0.45% SODIUM CHLORIDE 1,000 ML IV (17:49)
[2017-08-26] MEDS: PROCHLORPERAZINE 5 MG TAB (S0183) PO (20:17)
[2017-08-27] MEDS: PERCOCET 5MG/325MG TAB PO ×4 (04:03→23:49)
[2017-08-27] MEDS: CIPROFLOXACIN 500 MG TAB PO ×2 (06:44→17:36)
[2017-08-27] MEDS: metroNIDAZOLE (FLAGYL) 500 MG TAB PO ×3 (06:44→21:23)
[2017-08-27 07:04] LABS: HEMATOCRIT 34.2 % (36.0-47.0); HEMOGLOBIN 11.4 g/dl (12.0-16.0); MEAN CORPUSCULAR HEMOGLOBIN 27.3 pg (27.0-33.0); MEAN CORPUSCULAR HGB CONC 33.3 g/dl (32.0-36.5); MEAN CORPUSCULAR VOLUME 81.8 fl (80.0-96.0); PLATELET COUNT, AUTOMATED 229 10^3/uL (150-450); RED BLOOD COUNT 4.18 10^6/uL (4.00-5.40); RED CELL DISTRIBUTION WIDTH 14.5 % (11.5-14.5); WHITE BLOOD COUNT 5.3 10^3/uL (4.0-10.0)
[2017-08-27 07:09] LABS: CHLORIDE LEVEL 101 MEQ/L (98-107); POTASSIUM SERUM 3.6 MEQ/L (3.5-5.1); SODIUM LEVEL 138 MEQ/L (136-145)
[2017-08-27 07:10] LABS: PROTHROMBIN TIME 15.4 SECONDS (12.4-14.5)
[2017-08-27 07:11] LABS: CALCIUM LEVEL 8.9 MG/DL (8.5-10.1); MAGNESIUM LEVEL 2.1 MG/DL (1.8-2.4); PARTIAL THROMBOPLASTIN TIME 35.4 SECONDS (26.8-37.9)
[2017-08-27 07:12] LABS: ANION GAP 8 MEQ/L (8-16); BLOOD UREA NITROGEN 10 MG/DL (7-18); CARBON DIOXIDE LEVEL 29 MEQ/L (21-32)
[2017-08-27 07:15] LABS: C REACTIVE PROTEIN QUANTITATIV 2.08 MG/DL (0.00-0.30); CREATININE FOR GFR 1.04 MG/DL (0.55-1.02); GLOMERULAR FILTRATION RATE > 60.0 (>60); GLUCOSE, FASTING 113 MG/DL (70-105)
[2017-08-27] MEDS: D5W/0.45% SODIUM CHLORIDE 1,000 ML IV (09:30)
[2017-08-27] MEDS: PROCHLORPERAZINE 5 MG TAB (S0183) PO ×2 (11:32→23:49)
[2017-08-27] MEDS: ONDANSETRON 4 MG TAB (S0181) PO ×2 (11:33→17:37)
[2017-08-27] MEDS: **hydrALAZINE HCL** 25 MG TAB PO ×3 (11:33→21:20)
[2017-08-27] MEDS: LACTULOSE 20 GM/30 ML SYRUP UD PO ×2 (14:22→21:00)
[2017-08-27] MEDS: MIRALAX *UNIT DOSE* 17GM PACKET PO ×3 (14:22→21:00)
[2017-08-27] MEDS: LACTOBACILLUS ACIDOPHILUS CAP (BACID) PO ×2 (14:22→21:20)
[2017-08-27] MEDS: SENOKOT S TAB PO ×2 (14:22→21:20)
[2017-08-27] MEDS: FLEET ENEMA PR ×2 (14:23→21:00)
[2017-08-27] MEDS: SODIUM CHLORIDE 0.9% INJ 10 ML SYR IV (17:37)
[2017-08-28] MEDS: traMADol 50 MG TAB PO (01:40)
[2017-08-28] MEDS: SODIUM CHLORIDE 0.9% INJ 10 ML SYR IV ×4 (05:29→21:15)
[2017-08-28] MEDS: metroNIDAZOLE (FLAGYL) 500 MG TAB PO ×3 (05:29→21:14)
[2017-08-28] MEDS: CIPROFLOXACIN 500 MG TAB PO ×2 (05:29→17:03)
[2017-08-28 06:00] LABS: HEMATOCRIT 33.9 % (36.0-47.0); HEMOGLOBIN 11.3 g/dl (12.0-16.0); MEAN CORPUSCULAR HEMOGLOBIN 27.7 pg (27.0-33.0); MEAN CORPUSCULAR HGB CONC 33.3 g/dl (32.0-36.5); MEAN CORPUSCULAR VOLUME 83.1 fl (80.0-96.0); PLATELET COUNT, AUTOMATED 226 10^3/uL (150-450); RED BLOOD COUNT 4.08 10^6/uL (4.00-5.40); RED CELL DISTRIBUTION WIDTH 14.6 % (11.5-14.5)
[2017-08-28] MEDS: PERCOCET 5MG/325MG TAB PO ×3 (06:10→18:25)
[2017-08-28 06:57] LABS: ANION GAP 9 MEQ/L (8-16); BLOOD UREA NITROGEN 12 MG/DL (7-18); C REACTIVE PROTEIN QUANTITATIV 2.47 MG/DL (0.00-0.30); CARBON DIOXIDE LEVEL 29 MEQ/L (21-32); CHLORIDE LEVEL 100 MEQ/L (98-107); CREATININE FOR GFR 1.23 MG/DL (0.55-1.02); GLOMERULAR FILTRATION RATE 52.3 (>60); GLUCOSE, FASTING 95 MG/DL (70-105); MAGNESIUM LEVEL 2.3 MG/DL (1.8-2.4); POTASSIUM SERUM 3.5 MEQ/L (3.5-5.1); SODIUM LEVEL 138 MEQ/L (136-145)
[2017-08-28] MEDS: **hydrALAZINE HCL** 25 MG TAB PO ×3 (08:48→21:14)
[2017-08-28] MEDS: FLEET ENEMA PR ×2 (09:00→21:40)
[2017-08-28] MEDS ORDERED: ISOVUE-300 61% 50ML VIAL (Q9967) As Ordered (10:44)
[2017-08-28] MEDS ORDERED: MIDAZOLAM INJ 2 MG/2 ML VIAL (J2250) As Ordered (10:46)
[2017-08-28] MEDS ORDERED: fentaNYL 100 MCG/2 ML INJECTION (J3010) As Ordered (10:46)
[2017-08-28] MEDS ORDERED: PERCOCET 5MG/325MG TAB As Ordered (12:07)
[2017-08-28] MEDS ORDERED: PERCOCET 5MG/325MG TAB PO (12:30)
[2017-08-28] MEDS: MIRALAX *UNIT DOSE* 17GM PACKET PO ×3 (14:04→21:14)
[2017-08-28] MEDS: SENOKOT S TAB PO ×2 (14:04→21:15)
[2017-08-28] MEDS: LACTULOSE 20 GM/30 ML SYRUP UD PO ×2 (14:04→21:40)
[2017-08-28] MEDS: LACTOBACILLUS ACIDOPHILUS CAP (BACID) PO ×2 (14:05→21:15)
[2017-08-28] MEDS: MORPHINE 2 MG/ML 1ML SYRINGE IV ×2 (17:05→21:14)
[2017-08-28] MEDS: ENOXAPARIN 40 MG/0.4 ML SYRINGE (J1650) SC (17:25)
[2017-08-29] MEDS: PERCOCET 5MG/325MG TAB PO ×4 (00:30→22:50)
[2017-08-29] MEDS: MORPHINE 2 MG/ML 1ML SYRINGE IV ×4 (04:20→18:32)
[2017-08-29] MEDS: ONDANSETRON 4 MG TAB (S0181) PO ×2 (04:20→20:17)
[2017-08-29] MEDS: SODIUM CHLORIDE 0.9% INJ 10 ML SYR IV ×4 (04:21→18:32)
[2017-08-29] MEDS: metroNIDAZOLE (FLAGYL) 500 MG TAB PO ×3 (05:22→20:21)
[2017-08-29] MEDS: CIPROFLOXACIN 500 MG TAB PO ×2 (05:22→18:32)
[2017-08-29 05:47] LABS: HEMATOCRIT 33.7 % (36.0-47.0); HEMOGLOBIN 11.3 g/dl (12.0-16.0); MEAN CORPUSCULAR HEMOGLOBIN 27.5 pg (27.0-33.0); MEAN CORPUSCULAR HGB CONC 33.5 g/dl (32.0-36.5); PLATELET COUNT, AUTOMATED 208 10^3/uL (150-450); RED BLOOD COUNT 4.11 10^6/uL (4.00-5.40); RED CELL DISTRIBUTION WIDTH 14.6 % (11.5-14.5); WHITE BLOOD COUNT 4.5 10^3/uL (4.0-10.0)
[2017-08-29 06:26] LABS: ANION GAP 8 MEQ/L (8-16); BLOOD UREA NITROGEN 9 MG/DL (7-18); C REACTIVE PROTEIN QUANTITATIV 3.55 MG/DL (0.00-0.30); CALCIUM LEVEL 8.7 MG/DL (8.5-10.1); CARBON DIOXIDE LEVEL 30 MEQ/L (21-32); CHLORIDE LEVEL 99 MEQ/L (98-107); CREATININE FOR GFR 1.05 MG/DL (0.55-1.02); GLOMERULAR FILTRATION RATE > 60.0 (>60); GLUCOSE, FASTING 98 MG/DL (70-105); MAGNESIUM LEVEL 2.1 MG/DL (1.8-2.4); POTASSIUM SERUM 3.5 MEQ/L (3.5-5.1); SODIUM LEVEL 137 MEQ/L (136-145)
[2017-08-29] MEDS: **hydrALAZINE HCL** 25 MG TAB PO ×3 (09:27→20:17)
[2017-08-29] MEDS: SENOKOT S TAB PO ×2 (09:28→20:16)
[2017-08-29] MEDS: LACTOBACILLUS ACIDOPHILUS CAP (BACID) PO ×2 (09:28→20:16)
[2017-08-29] MEDS: MIRALAX *UNIT DOSE* 17GM PACKET PO ×2 (09:29→20:16)
[2017-08-29] MEDS: LACTULOSE 20 GM/30 ML SYRUP UD PO (09:29)
[2017-08-29] MEDS: ENOXAPARIN 40 MG/0.4 ML SYRINGE (J1650) SC (09:30)
[2017-08-29] MEDS: PROCHLORPERAZINE 5 MG TAB (S0183) PO (13:13)
[2017-08-30] MEDS: MORPHINE 2 MG/ML 1ML SYRINGE IV ×5 (00:12→19:13)
[2017-08-30] MEDS: CIPROFLOXACIN 500 MG TAB PO (04:57)
[2017-08-30] MEDS: metroNIDAZOLE (FLAGYL) 500 MG TAB PO (04:57)
[2017-08-30] MEDS: PERCOCET 5MG/325MG TAB PO ×3 (04:58→18:30)
[2017-08-30] MEDS: SODIUM CHLORIDE 0.9% INJ 10 ML SYR IV ×4 (06:04→18:28)
[2017-08-30 06:23] LABS: HEMATOCRIT 33.7 % (36.0-47.0); HEMOGLOBIN 11.2 g/dl (12.0-16.0); MEAN CORPUSCULAR HEMOGLOBIN 27.6 pg (27.0-33.0); MEAN CORPUSCULAR HGB CONC 33.2 g/dl (32.0-36.5); PLATELET COUNT, AUTOMATED 210 10^3/uL (150-450); RED BLOOD COUNT 4.06 10^6/uL (4.00-5.40); RED CELL DISTRIBUTION WIDTH 14.7 % (11.5-14.5); WHITE BLOOD COUNT 4.3 10^3/uL (4.0-10.0)
[2017-08-30 06:51] LABS: ANION GAP 8 MEQ/L (8-16); BLOOD UREA NITROGEN 12 MG/DL (7-18); C REACTIVE PROTEIN QUANTITATIV 5.37 MG/DL (0.00-0.30); CALCIUM LEVEL 8.5 MG/DL (8.5-10.1); CARBON DIOXIDE LEVEL 30 MEQ/L (21-32); CHLORIDE LEVEL 100 MEQ/L (98-107); CREATININE FOR GFR 1.13 MG/DL (0.55-1.02); GLOMERULAR FILTRATION RATE 57.7 (>60); GLUCOSE, FASTING 157 MG/DL (70-105); MAGNESIUM LEVEL 2.1 MG/DL (1.8-2.4); POTASSIUM SERUM 3.2 MEQ/L (3.5-5.1); SODIUM LEVEL 138 MEQ/L (136-145)
[2017-08-30] MEDS: LACTOBACILLUS ACIDOPHILUS CAP (BACID) PO ×2 (09:07→21:23)
[2017-08-30] MEDS: POTASSIUM CHLORIDE 10 MEQ SR TABLET PO (09:07)
[2017-08-30] MEDS: amLODIPine 5 MG TAB PO (09:10)
[2017-08-30] MEDS: ENOXAPARIN 40 MG/0.4 ML SYRINGE (J1650) SC (09:10)
[2017-08-30] MEDS: MIRALAX *UNIT DOSE* 17GM PACKET PO ×2 (09:10→21:22)
[2017-08-30] MEDS: SENOKOT S TAB PO ×2 (09:11→21:24)
[2017-08-30] MEDS: **hydrALAZINE HCL** 25 MG TAB PO ×3 (09:11→21:29)
[2017-08-30] MEDS: PROCHLORPERAZINE 5 MG TAB (S0183) PO (11:02)
[2017-08-30] MEDS ORDERED: ISOVUE-370 76% 100ML VIAL (Q9967) As Ordered (13:38)
[2017-08-30] MEDS: CYCLOBENZAPRINE 10 MG TAB PO (21:23)
[2017-08-30] MEDS: MORPHINE 15 MG SA TAB PO (21:24)
[2017-08-31] MEDS: PERCOCET 5MG/325MG TAB PO ×5 (00:49→23:19)
[2017-08-31] MEDS: MORPHINE 2 MG/ML 1ML SYRINGE IV ×5 (01:20→22:38)
[2017-08-31] MEDS: SODIUM CHLORIDE 0.9% INJ 10 ML SYR IV ×6 (01:20→22:37)
[2017-08-31 05:57] LABS: HEMOGLOBIN 10.9 g/dl (12.0-16.0); MEAN CORPUSCULAR HEMOGLOBIN 27.8 pg (27.0-33.0); MEAN CORPUSCULAR VOLUME 84.2 fl (80.0-96.0); PLATELET COUNT, AUTOMATED 192 10^3/uL (150-450); RED BLOOD COUNT 3.92 10^6/uL (4.00-5.40); RED CELL DISTRIBUTION WIDTH 15.3 % (11.5-14.5); WHITE BLOOD COUNT 4.1 10^3/uL (4.0-10.0)
[2017-08-31 06:22] LABS: ANION GAP 6 MEQ/L (8-16); BLOOD UREA NITROGEN 11 MG/DL (7-18); CALCIUM LEVEL 8.4 MG/DL (8.5-10.1); CARBON DIOXIDE LEVEL 30 MEQ/L (21-32); CHLORIDE LEVEL 103 MEQ/L (98-107); CREATININE FOR GFR 0.93 MG/DL (0.55-1.02); GLOMERULAR FILTRATION RATE > 60.0 (>60); GLUCOSE, FASTING 93 MG/DL (70-105); MAGNESIUM LEVEL 2.1 MG/DL (1.8-2.4); POTASSIUM SERUM 3.7 MEQ/L (3.5-5.1); SODIUM LEVEL 139 MEQ/L (136-145)
[2017-08-31] MEDS: MIRALAX *UNIT DOSE* 17GM PACKET PO ×2 (08:30→20:29)
[2017-08-31] MEDS: ENOXAPARIN 40 MG/0.4 ML SYRINGE (J1650) SC (08:31)
[2017-08-31] MEDS: SENOKOT S TAB PO ×2 (08:32→20:29)
[2017-08-31] MEDS: LACTOBACILLUS ACIDOPHILUS CAP (BACID) PO ×2 (08:32→20:29)
[2017-08-31] MEDS: amLODIPine 5 MG TAB PO (08:34)
[2017-08-31] MEDS: MECLIZINE 12.5 MG TAB PO (08:34)
[2017-08-31] MEDS: MORPHINE 15 MG SA TAB PO ×2 (08:35→20:30)
[2017-08-31] MEDS: CYCLOBENZAPRINE 10 MG TAB PO ×3 (08:35→20:29)
[2017-08-31] MEDS: **hydrALAZINE HCL** 25 MG TAB PO ×3 (09:00→20:30)
[2017-09-01] MEDS: MORPHINE 2 MG/ML 1ML SYRINGE IV ×3 (02:39→15:00)
[2017-09-01] MEDS: SODIUM CHLORIDE 0.9% INJ 10 ML SYR IV ×4 (02:44→15:01)
[2017-09-01] MEDS: PERCOCET 5MG/325MG TAB PO ×3 (05:35→18:47)
[2017-09-01 05:56] LABS: HEMATOCRIT 34.6 % (36.0-47.0); HEMOGLOBIN 11.4 g/dl (12.0-16.0); MEAN CORPUSCULAR HEMOGLOBIN 27.8 pg (27.0-33.0); MEAN CORPUSCULAR HGB CONC 32.9 g/dl (32.0-36.5); MEAN CORPUSCULAR VOLUME 84.4 fl (80.0-96.0); PLATELET COUNT, AUTOMATED 202 10^3/uL (150-450); RED CELL DISTRIBUTION WIDTH 15.1 % (11.5-14.5); WHITE BLOOD COUNT 4.4 10^3/uL (4.0-10.0)
[2017-09-01 06:20] LABS: ANION GAP 7 MEQ/L (8-16); BLOOD UREA NITROGEN 12 MG/DL (7-18); CALCIUM LEVEL 8.6 MG/DL (8.5-10.1); CARBON DIOXIDE LEVEL 32 MEQ/L (21-32); CHLORIDE LEVEL 101 MEQ/L (98-107); CREATININE FOR GFR 0.91 MG/DL (0.55-1.02); GLOMERULAR FILTRATION RATE > 60.0 (>60); GLUCOSE, FASTING 109 MG/DL (70-105); MAGNESIUM LEVEL 2.1 MG/DL (1.8-2.4); POTASSIUM SERUM 3.7 MEQ/L (3.5-5.1); SODIUM LEVEL 140 MEQ/L (136-145)
[2017-09-01] MEDS: MIRALAX *UNIT DOSE* 17GM PACKET PO ×2 (10:06→21:05)
[2017-09-01] MEDS: SENOKOT S TAB PO ×2 (10:08→21:09)
[2017-09-01] MEDS: ENOXAPARIN 40 MG/0.4 ML SYRINGE (J1650) SC (10:08)
[2017-09-01] MEDS: LACTOBACILLUS ACIDOPHILUS CAP (BACID) PO ×2 (10:10→21:06)
[2017-09-01] MEDS: MECLIZINE 12.5 MG TAB PO (10:11)
[2017-09-01] MEDS: MORPHINE 15 MG SA TAB PO (10:11)
[2017-09-01] MEDS: **hydrALAZINE HCL** 25 MG TAB PO ×3 (10:16→21:10)
[2017-09-01] MEDS: amLODIPine 5 MG TAB PO (10:16)
[2017-09-01] MEDS: CYCLOBENZAPRINE 10 MG TAB PO ×3 (10:16→21:09)
[2017-09-01] MEDS: GABAPENTIN 300 MG CAP PO ×2 (15:06→21:09)
[2017-09-01] MEDS: MORPHINE 30 MG SA TAB PO (21:08)
[2017-09-02] MEDS: PERCOCET 5MG/325MG TAB PO (03:22)
[2017-09-02] MEDS: SODIUM CHLORIDE 0.9% INJ 10 ML SYR IV (06:10)
[2017-09-02 06:13] LABS: HEMATOCRIT 35.5 % (36.0-47.0); HEMOGLOBIN 11.7 g/dl (12.0-16.0); MEAN CORPUSCULAR HEMOGLOBIN 27.8 pg (27.0-33.0); MEAN CORPUSCULAR VOLUME 84.3 fl (80.0-96.0); PLATELET COUNT, AUTOMATED 215 10^3/uL (150-450); RED BLOOD COUNT 4.21 10^6/uL (4.00-5.40); RED CELL DISTRIBUTION WIDTH 15.2 % (11.5-14.5); WHITE BLOOD COUNT 4.3 10^3/uL (4.0-10.0)
[2017-09-02 06:37] LABS: ANION GAP 8 MEQ/L (8-16); BLOOD UREA NITROGEN 14 MG/DL (7-18); CALCIUM LEVEL 9.1 MG/DL (8.5-10.1); CARBON DIOXIDE LEVEL 30 MEQ/L (21-32); CHLORIDE LEVEL 102 MEQ/L (98-107); CREATININE FOR GFR 0.98 MG/DL (0.55-1.02); GLOMERULAR FILTRATION RATE > 60.0 (>60); GLUCOSE, FASTING 109 MG/DL (70-105); MAGNESIUM LEVEL 2.3 MG/DL (1.8-2.4); POTASSIUM SERUM 3.9 MEQ/L (3.5-5.1); SODIUM LEVEL 140 MEQ/L (136-145)
[2017-09-02] MEDS: LACTOBACILLUS ACIDOPHILUS CAP (BACID) PO (08:23)
[2017-09-02] MEDS: GABAPENTIN 300 MG CAP PO (08:23)
[2017-09-02] MEDS: MIRALAX *UNIT DOSE* 17GM PACKET PO (08:23)
[2017-09-02] MEDS: CYCLOBENZAPRINE 10 MG TAB PO (08:23)
[2017-09-02] MEDS: SENOKOT S TAB PO (08:23)
[2017-09-02] MEDS: MORPHINE 30 MG SA TAB PO (08:24)
[2017-09-02] MEDS: amLODIPine 5 MG TAB PO (08:25)
[2017-09-02] MEDS: **hydrALAZINE HCL** 25 MG TAB PO (08:26)
== END 2017-09-02 12:20 | disposition home or self-care (01) | DRG 375 ==
LOC: M PED 08-21 21:00 → M ED 00:09 → M ED INP 02:24 → M MSPAV 03:46
PROC: 02HV33Z Insertion of Infusion Device into Superior Vena Cava, Percutaneous Approach (ICD-10-PCS; 2017-08-27)
PROC: 0T9030Z Drainage of Right Kidney with Drainage Device, Percutaneous Approach (ICD-10-PCS; principal; 2017-08-28)
DX: C78.6 Secondary malignant neoplasm of retroperitoneum and peritoneum (principal); N13.1 Hydronephrosis with ureteral stricture, not elsewhere classified; T83.192A Other mechanical complication of indwelling ureteral stent, initial encounter; K52.9 Noninfective gastroenteritis and colitis, unspecified; F32.9 Major depressive disorder, single episode, unspecified; Z85.41 Personal history of malignant neoplasm of cervix uteri; K59.00 Constipation, unspecified; Z79.899 Other long term (current) drug therapy; K21.9 Gastro-esophageal reflux disease without esophagitis; G47.00 Insomnia, unspecified; E87.6 Hypokalemia; Z88.8 Allergy status to other drugs, medicaments and biological substances; Z88.5 Allergy status to narcotic agent; Z87.891 Personal history of nicotine dependence

== ENCOUNTER → 2017-09-19 | Outpatient (CLI) | payer MEDICARE, MEDICAID ==
[2017-09-19 10:57] LABS: BASO % 0.4 % (0.0-1.0); EOS # 0.7 10^3/uL (0.0-0.50); EOS % 12.8 % (0.0-3.0); HEMATOCRIT 31.6 % (36.0-47.0); HEMOGLOBIN 10.3 g/dl (12.0-16.0); LYMPH # 0.9 10^3/uL (1.5-4.5); LYMPH % 17.7 % (24.0-44.0); MEAN CORPUSCULAR HEMOGLOBIN 27.7 pg (27.0-33.0); MEAN CORPUSCULAR HGB CONC 32.6 g/dl (32.0-36.5); MEAN CORPUSCULAR VOLUME 84.9 fl (80.0-96.0); MONO # 0.4 10^3/uL (0.0-0.8); MONO % 7.2 % (0.0-5.0); NEUTROPHILS # 3.1 10^3/uL (1.8-7.7); NEUTROPHILS % 60.9 % (36.0-66.0); PLATELET COUNT, AUTOMATED 227 10^3/uL (150-450); RED BLOOD COUNT 3.72 10^6/uL (4.00-5.40); RED CELL DISTRIBUTION WIDTH 15.8 % (11.5-14.5); WHITE BLOOD COUNT 5.1 10^3/uL (4.0-10.0)
[2017-09-19 11:17] LABS: ALBUMIN/GLOBULIN RATIO 0.73 (1.00-1.93); ALKALINE PHOSPHATASE 137 U/L (45-117); ALT/SGPT 30 U/L (12-78); ANION GAP 6 MEQ/L (8-16); AST/SGOT 26 U/L (7-37); BILIRUBIN,TOTAL 0.3 MG/DL (0.2-1.0); BLOOD UREA NITROGEN 12 MG/DL (7-18); CALCIUM LEVEL 8.9 MG/DL (8.5-10.1); CARBON DIOXIDE LEVEL 31 MEQ/L (21-32); CHLORIDE LEVEL 102 MEQ/L (98-107); CREATININE FOR GFR 0.94 MG/DL (0.55-1.30); GLOMERULAR FILTRATION RATE > 60.0 (>60); GLUCOSE, FASTING 114 MG/DL (70-100); HCG, SERUM QUANTITATIVE < 1.0 MIU/ML; MAGNESIUM LEVEL 2.1 MG/DL (1.8-2.4); POTASSIUM SERUM 3.7 MEQ/L (3.5-5.1); SODIUM LEVEL 139 MEQ/L (136-145); TOTAL PROTEIN 7.1 GM/DL (6.4-8.2)
== END ==
LOC: M LAB 10:13
DX: C53.8 Malignant neoplasm of overlapping sites of cervix uteri (principal)
CPT/HCPCS: 83735

== ENCOUNTER → 2017-10-10 | Outpatient (CLI) | payer MEDICARE, MEDICAID ==
[2017-10-10 10:04] LABS: BASO % 0.8 % (0.0-1.0); EOS # 0.4 10^3/uL (0.0-0.50); EOS % 6.7 % (0.0-3.0); HEMATOCRIT 30.2 % (36.0-47.0); HEMOGLOBIN 9.7 g/dl (12.0-16.0); IMMATURE GRANULOCYTE % 2.3 % (0-3.0); LYMPH # 0.9 10^3/uL (1.5-4.5); LYMPH % 17.9 % (24.0-44.0); MEAN CORPUSCULAR HEMOGLOBIN 27.5 pg (27.0-33.0); MEAN CORPUSCULAR HGB CONC 32.1 g/dl (32.0-36.5); MEAN CORPUSCULAR VOLUME 85.6 fl (80.0-96.0); MONO # 0.5 10^3/uL (0.0-0.8); NEUTROPHILS # 3.3 10^3/uL (1.8-7.7); NEUTROPHILS % 63.3 % (36.0-66.0); PLATELET COUNT, AUTOMATED 301 10^3/uL (150-450); RED BLOOD COUNT 3.53 10^6/uL (4.00-5.40); RED CELL DISTRIBUTION WIDTH 15.4 % (11.5-14.5); WHITE BLOOD COUNT 5.3 10^3/uL (4.0-10.0)
[2017-10-10 10:26] LABS: ALBUMIN/GLOBULIN RATIO 0.73 (1.00-1.93); ALKALINE PHOSPHATASE 159 U/L (45-117); ALT/SGPT 31 U/L (12-78); ANION GAP 7 MEQ/L (8-16); AST/SGOT 13 U/L (7-37); BILIRUBIN,TOTAL 0.1 MG/DL (0.2-1.0); BLOOD UREA NITROGEN 12 MG/DL (7-18); CALCIUM LEVEL 8.7 MG/DL (8.5-10.1); CARBON DIOXIDE LEVEL 30 MEQ/L (21-32); CHLORIDE LEVEL 106 MEQ/L (98-107); CREATININE FOR GFR 0.98 MG/DL (0.55-1.30); GLOMERULAR FILTRATION RATE > 60.0 (>60); GLUCOSE, FASTING 145 MG/DL (70-100); HCG, SERUM QUANTITATIVE 2 MIU/ML; POTASSIUM SERUM 3.9 MEQ/L (3.5-5.1); SODIUM LEVEL 143 MEQ/L (136-145); TOTAL PROTEIN 7.1 GM/DL (6.4-8.2)
== END ==
LOC: M LAB 09:34
DX: Z79.899 Other long term (current) drug therapy (principal); C53.8 Malignant neoplasm of overlapping sites of cervix uteri; C80.1 Malignant (primary) neoplasm, unspecified
CPT/HCPCS: 83735

== ENCOUNTER → 2018-01-17 | Outpatient (CLI) | payer MEDICARE, MEDICAID ==
[~2018-01-17] MED LIST changes: -/CELE20CA PO; -ACET500C; -ACET500C PO; -AMIT25TA2 OR; -AMIT50TA PO; -BACL10TA2 PO; -BACL1TAB8; +BACTRIM 160MG/800MG DS TAB As Ordered; -CHEMO INJ; -CIPR500T19; -COLA50CA OR; -CYCL10TA PO; -DOCQ100C PO; -DOCU10CA PO; -DOXY-278 PO; -ESTR1CRE PV; -FLEXERIL PO; -FLOM5CAP; -FLOM5CAP PO; -FOLI1TAB4 PO; -FOLI400T PO; -IBUP-1022 PO; -IBUP200T2 PO; -IBUP400T PO; -IBUPPOW25 PO; +ISOVUE-300 61% 50ML VIAL (Q9967) As Ordered; -KEFL500C17 PO; +LIDOCAINE 1% MDV 20ML VIAL As Ordered; -LOPE2CAP PO; -LYRI75CA OR; -LYRI75CA PO; -MACR100C43 PO; -MAPA325T2 PO; -MECL-68 PO; -MIRA3350 PO; -MIREIUD IU; -MULTIVIT PO; -NICO21DI4; -NIFEREX; -NORCOTAB PO; -NYST50SS PO; -NYST50SS SS; -No Historical Meds; -ONDA4TAB5 PO; -OXYC10TA12 PO; -PERC5TAB12; -PERC5TAB12 PO; -PERCOCET PO; -PROC10TA PO; -PSEU30OTC OR; -SENN-3 PO; -SENN1TAB2 PO; -SENO8.6T5 OR; -SOMA350T PO; -TRAM50TA2 OR; -TRAM50TA2 PO; -TUMS500C PO; -TYLE325T5 PO; -TYLETAB3 PO; -ULTR50TA PO; -VITA500T53 PO; -ZANA4TAB PO; -ZOFR20TA PO; -ZOFR4TAB3 PO
== END ==
LOC: M RADPRO 08:04
DX: N13.2 Hydronephrosis with renal and ureteral calculous obstruction (principal); Z88.8 Allergy status to other drugs, medicaments and biological substances; Z79.899 Other long term (current) drug therapy
CPT/HCPCS: 50435

== ENCOUNTER 2018-01-26 13:09 | Emergency (ER) | payer MEDICARE, MEDICAID ==
[2018-01-26] MEDS: NYSTATIN 500,000 U/5 ML SUSP UDC PO (13:15)
[2018-01-26] MEDS: NS 500 ML IV (13:15)
[2018-01-26] MEDS: ONDANSETRON 4MG/2ML VIAL (J2405) IV (14:08)
[2018-01-26 14:10] LABS: BASO % 0.3 % (0.0-1.0); EOS % 0.2 % (0.0-3.0); HEMATOCRIT 32.5 % (36.0-47.0); HEMOGLOBIN 10.4 g/dl (12.0-15.5); IMMATURE GRANULOCYTE % 1.3 % (0-3.0); LYMPH % 2.5 % (24.0-44.0); MEAN CORPUSCULAR HEMOGLOBIN 29.5 pg (27.0-33.0); MEAN CORPUSCULAR VOLUME 92.1 fl (80.0-96.0); MONO # 0.1 10^3/uL (0.0-0.8); MONO % 2.3 % (0.0-5.0); NEUTROPHILS # 5.7 10^3/uL (1.8-7.7); NEUTROPHILS % 93.4 % (36.0-66.0); PLATELET COUNT, AUTOMATED 147 10^3/uL (150-450); RED BLOOD COUNT 3.53 10^6/uL (4.00-5.40); RED CELL DISTRIBUTION WIDTH 18.4 % (11.5-14.5); WHITE BLOOD COUNT 6.1 10^3/uL (4.0-10.0)
[2018-01-26] MEDS: MORPHINE 2 MG/ML 1ML SYRINGE (J2270) IV (14:11)
[2018-01-26 14:23] LABS: ANION GAP 4 MEQ/L (8-16); BLOOD UREA NITROGEN 27 MG/DL (7-18); C REACTIVE PROTEIN QUANTITATIV 0.55 MG/DL (0.00-0.30); CALCIUM LEVEL 7.6 MG/DL (8.5-10.1); CARBON DIOXIDE LEVEL 30 MEQ/L (21-32); CHLORIDE LEVEL 102 MEQ/L (98-107); CREATININE FOR GFR 0.96 MG/DL (0.55-1.30); GLOMERULAR FILTRATION RATE > 60.0 (>60); GLUCOSE, FASTING 158 MG/DL (70-100); POTASSIUM SERUM 4.4 MEQ/L (3.5-5.1); SODIUM LEVEL 136 MEQ/L (136-145)
[2018-01-26 14:26] LABS: LYMPH # 0.2 10^3/uL (1.5-4.5); POSITIVE DIFF POS FLAG
[2018-01-26 14:29] LABS: KETONE, URINE AUTO RFX NEGATIVE (NEGATIVE); NITRITE, URINE AUTO RFX NEGATIVE (NEGATIVE); RBC, URINE AUTO RFX TNTC /HPF (0-3); SPECIFIC GRAVITY UR AUTO RFX 1.013 (1.002-1.035); SQUAM EPITHELIAL CELL UR AURFX 0 /HPF (0-6); TRIPLE PHOSPHATE CRYSTALS RFX LARGE; WBC, URINE AUTO RFX 7 /HPF (0-3)
[2018-01-26 14:36] LABS: LEUKOCYTE ESTERASE UR AUTO RFX 3+ (NEGATIVE)
[2018-01-26] MEDS: MORPHINE 4 MG/ML 1ML VIAL/SYRINGE (J2270) IV (15:22)
[2018-01-26] MEDS: HYDROmorphone HCL 1 MG/ML SYRINGE (J1170) IV (18:28)
== END 2018-01-26 18:55 | disposition short-term general hospital (02) ==
LOC: M ED 13:09
DX: T83.022A Displacement of nephrostomy catheter, initial encounter (principal); B37.0 Candidal stomatitis; A69.20 Lyme disease, unspecified; F33.9 Major depressive disorder, recurrent, unspecified; F41.9 Anxiety disorder, unspecified; C79.51 Secondary malignant neoplasm of bone; Z85.41 Personal history of malignant neoplasm of cervix uteri; Z87.442 Personal history of urinary calculi; Z98.890 Other specified postprocedural states; Z87.891 Personal history of nicotine dependence; Z88.8 Allergy status to other drugs, medicaments and biological substances; Z79.899 Other long term (current) drug therapy
CPT/HCPCS: J1170

== ENCOUNTER → 2018-01-29 | Outpatient (CLI) | payer MEDICARE, MEDICAID ==
[~2018-01-29] MED LIST changes: -BACTRIM 160MG/800MG DS TAB As Ordered; -LIDOCAINE 1% MDV 20ML VIAL As Ordered; +LIDOCAINE 2% MDV 20 ML VIAL As Ordered
== END ==
LOC: M RADPRO 13:18
DX: N13.39 Other hydronephrosis (principal); Z79.891 Long term (current) use of opiate analgesic; Z79.899 Other long term (current) drug therapy; Z88.8 Allergy status to other drugs, medicaments and biological substances
CPT/HCPCS: 50435

== ENCOUNTER → 2018-02-07 | Outpatient (CLI) | payer MEDICARE, MEDICAID ==
[~2018-02-07] MED LIST changes: -ISOVUE-300 61% 50ML VIAL (Q9967) As Ordered; +ISOVUE-370 76% 100ML VIAL (Q9967) As Ordered; -LIDOCAINE 2% MDV 20 ML VIAL As Ordered
== END ==
LOC: M RAD 13:32
DX: C53.9 Malignant neoplasm of cervix uteri, unspecified (principal); Z93.6 Other artificial openings of urinary tract status

== ENCOUNTER 2018-02-09 11:22 | Inpatient (IN) | payer MEDICARE, MEDICAID ==
[2018-02-09 14:21] LABS: HEMATOCRIT 29.2 % (36.0-47.0); HEMOGLOBIN 9.4 g/dl (12.0-15.5); MEAN CORPUSCULAR HEMOGLOBIN 29.7 pg (27.0-33.0); MEAN CORPUSCULAR HGB CONC 32.2 g/dl (32.0-36.5); MEAN CORPUSCULAR VOLUME 92.1 fl (80.0-96.0); PLATELET COUNT, AUTOMATED 211 10^3/uL (150-450); RED BLOOD COUNT 3.17 10^6/uL (4.00-5.40); RED CELL DISTRIBUTION WIDTH 17.9 % (11.5-14.5); WHITE BLOOD COUNT 7.1 10^3/uL (4.0-10.0)
[2018-02-09 14:31] LABS: INR 1.02; PROTHROMBIN TIME 13.5 SECONDS (12.1-14.4)
[2018-02-09 14:32] LABS: PARTIAL THROMBOPLASTIN TIME 23.4 SECONDS (25.4-37.6)
[2018-02-09 14:39] LABS: ADD MANUAL DIFFER YES; DIFF SLIDE NUMBER 124; POS COUNT POS FLAG; POSITIVE MORPH POS FLAG
[2018-02-09 14:47] LABS: CONTROL LINE HCG INT CTR LINE PRESENT; HCG, SERUM QUALITATIVE NEGATIVE (NEGATIVE)
[2018-02-09 14:56] LABS: ALBUMIN/GLOBULIN RATIO 0.91 (1.00-1.93); ALKALINE PHOSPHATASE 88 U/L (45-117); ALT/SGPT 60 U/L (12-78); ANION GAP 10 MEQ/L (8-16); AST/SGOT 21 U/L (7-37); BILIRUBIN,DIRECT < 0.1 MG/DL (0.0-0.2); BILIRUBIN,TOTAL 0.2 MG/DL (0.2-1.0); BLOOD UREA NITROGEN 24 MG/DL (7-18); CARBON DIOXIDE LEVEL 28 MEQ/L (21-32); CHLORIDE LEVEL 105 MEQ/L (98-107); CPK CREATINE PHOSPHOKINASE 106 U/L (26-192); GLOMERULAR FILTRATION RATE > 60.0 (>60); GLUCOSE, FASTING 157 MG/DL (70-100); POTASSIUM SERUM 4.4 MEQ/L (3.5-5.1); SODIUM LEVEL 143 MEQ/L (136-145); TOTAL PROTEIN 6.3 GM/DL (6.4-8.2); TROPONIN I < 0.02 NG/ML (< 0.10)
[2018-02-09 14:58] LABS: BANDS 2 % (< 11); EOSINOPHILS 3 % (0-5); LYMPHOCYTES 7 % (16-52); METAMYELOCYTES 1 % (0-0); MONOCYTES 6 % (0-8); NEUTROPHILS 81 % (35-75)
[2018-02-09 14:59] LABS: ANISOCYTOSIS 1+; PLATELET ESTIMATE NORMAL (NORMAL); TOXIC VACUOLATION 1+
[2018-02-09 15:02] LABS: CK-MB VALUE MASS 1.5 NG/ML (<3.6); MB/CK RELATIVE INDEX 1.41 (< OR =4); THYROID STIMULATING HORMONE 0.246 uIU/ML (0.358-3.740)
[2018-02-09] MEDS: PERCOCET 5MG/325MG TAB PO (15:28)
[2018-02-09 16:19] LABS: NT-PRO BNP 57 PG/ML (<125)
[2018-02-09] MEDS: FUROSEMIDE 40 MG/4 ML VIAL (J1940) IV ×2 (16:21→22:47)
[2018-02-09 17:04] LABS: CALCIUM OXALATE CRYSTALS RFX SMALL; KETONE, URINE AUTO RFX NEGATIVE (NEGATIVE); NITRITE, URINE AUTO RFX NEGATIVE (NEGATIVE); RBC, URINE AUTO RFX 11 /HPF (0-3); SPECIFIC GRAVITY UR AUTO RFX 1.023 (1.002-1.035); SQUAM EPITHELIAL CELL UR AURFX 4 /HPF (0-6); TRANSITIONAL EPITHELIAL AU RFX <1 /HPF
[2018-02-09 17:05] LABS: LEUKOCYTE ESTERASE UR AUTO RFX 2+ (NEGATIVE); WBC, URINE AUTO RFX 12 /HPF (0-3)
[2018-02-09] MEDS ORDERED: ISOVUE-370 76% 100ML VIAL (Q9967) As Ordered (19:40)
[2018-02-09] MEDS ORDERED: MIRALAX *UNIT DOSE* 17GM PACKET PO (19:45)
[2018-02-09] MEDS ORDERED: SENNA 8.6 MG TAB (SENOKOT) PO (19:45)
[2018-02-09] MEDS: CYCLOBENZAPRINE 10 MG TAB PO (21:08)
[2018-02-09] MEDS: ONDANSETRON 4 MG ORAL DISINTEGRATING TAB (Q0162 PER 1MG) PO (21:08)
[2018-02-09] MEDS: MAGNESIUM OXIDE 400 MG TAB (MAG-OX) PO (21:08)
[2018-02-09] MEDS: MIRTAZAPINE 15 MG TAB PO (21:08)
[2018-02-09] MEDS: MORPHINE 30 MG SA TAB PO (21:09)
[2018-02-09] MEDS: **NOTE PATIENT COMMENT** MISC XX (21:09)
[2018-02-09] MEDS: oxyCODONE 5MG TAB PO (22:48)
[2018-02-09] MEDS: GABAPENTIN 300 MG CAP PO (22:50)
[2018-02-10 00:01] LABS: ANION GAP 7 MEQ/L (8-16); BLOOD UREA NITROGEN 22 MG/DL (7-18); CALCIUM LEVEL 8.5 MG/DL (8.5-10.1); CARBON DIOXIDE LEVEL 33 MEQ/L (21-32); CHLORIDE LEVEL 100 MEQ/L (98-107); CREATININE FOR GFR 1.15 MG/DL (0.55-1.30); FREE T4 0.93 NG/DL (0.76-1.46); GLOMERULAR FILTRATION RATE 56.5 (>60); GLUCOSE, FASTING 183 MG/DL (70-100); POTASSIUM SERUM 3.7 MEQ/L (3.5-5.1); SODIUM LEVEL 140 MEQ/L (136-145)
[2018-02-10] MEDS ORDERED: PREPARATION H OINTMENT (HEMORRHOID) PR (01:45)
[2018-02-10] MEDS ORDERED: NYSTATIN 100,000 UNITS/GM TOPICAL PWD 15 GM TOP (01:45)
[2018-02-10] MEDS: oxyCODONE 5MG TAB PO ×4 (04:57→23:27)
[2018-02-10 05:38] LABS: HEMATOCRIT 31.5 % (36.0-47.0); HEMOGLOBIN 10.1 g/dl (12.0-15.5); MEAN CORPUSCULAR HEMOGLOBIN 29.4 pg (27.0-33.0); MEAN CORPUSCULAR HGB CONC 32.1 g/dl (32.0-36.5); MEAN CORPUSCULAR VOLUME 91.6 fl (80.0-96.0); PLATELET COUNT, AUTOMATED 245 10^3/uL (150-450); RED BLOOD COUNT 3.44 10^6/uL (4.00-5.40); RED CELL DISTRIBUTION WIDTH 17.9 % (11.5-14.5)
[2018-02-10 05:57] LABS: ALBUMIN 3.2 GM/DL (3.2-5.2); ALBUMIN/GLOBULIN RATIO 0.76 (1.00-1.93); ALKALINE PHOSPHATASE 92 U/L (45-117); ALT/SGPT 58 U/L (12-78); ANION GAP 8 MEQ/L (8-16); AST/SGOT 27 U/L (7-37); BILIRUBIN,TOTAL 0.2 MG/DL (0.2-1.0); BLOOD UREA NITROGEN 22 MG/DL (7-18); CALCIUM LEVEL 8.6 MG/DL (8.5-10.1); CARBON DIOXIDE LEVEL 34 MEQ/L (21-32); CHLORIDE LEVEL 99 MEQ/L (98-107); CREATININE FOR GFR 1.06 MG/DL (0.55-1.30); GLOMERULAR FILTRATION RATE > 60.0 (>60); GLUCOSE, FASTING 121 MG/DL (70-100); POTASSIUM SERUM 3.8 MEQ/L (3.5-5.1); SODIUM LEVEL 141 MEQ/L (136-145); TOTAL PROTEIN 7.4 GM/DL (6.4-8.2)
[2018-02-10] MEDS: GABAPENTIN 300 MG CAP PO ×2 (08:33→21:33)
[2018-02-10] MEDS: CYCLOBENZAPRINE 10 MG TAB PO ×3 (08:33→21:33)
[2018-02-10] MEDS: MAGNESIUM OXIDE 400 MG TAB (MAG-OX) PO ×2 (08:33→21:33)
[2018-02-10] MEDS: MORPHINE 30 MG SA TAB PO ×2 (08:34→21:34)
[2018-02-10] MEDS: ONDANSETRON 4 MG ORAL DISINTEGRATING TAB (Q0162 PER 1MG) PO ×2 (08:34→21:33)
[2018-02-10] MEDS: ENOXAPARIN 40 MG/0.4 ML SYRINGE (J1650) SC (12:12)
[2018-02-10] MEDS: FUROSEMIDE 40 MG TAB PO ×2 (12:12→16:50)
[2018-02-10] MEDS: TRIAMCINOLONE ACET 0.1% CREAM 80 GM TOP ×2 (12:13→21:00)
[2018-02-10] MEDS: **NOTE PATIENT COMMENT** MISC XX (21:00)
[2018-02-11] MEDS: LIDOCAINE 5% (LIDODERM) PATCH TOP (00:46)
[2018-02-11] MEDS: oxyCODONE 5MG TAB PO (04:19)
[2018-02-11] MEDS: SODIUM CHLORIDE 0.9% INJ 10 ML SYR IV ×2 (05:35→09:11)
[2018-02-11 05:46] LABS: HEMATOCRIT 32.7 % (36.0-47.0); HEMOGLOBIN 10.5 g/dl (12.0-15.5); MEAN CORPUSCULAR HEMOGLOBIN 29.3 pg (27.0-33.0); MEAN CORPUSCULAR HGB CONC 32.1 g/dl (32.0-36.5); MEAN CORPUSCULAR VOLUME 91.3 fl (80.0-96.0); PLATELET COUNT, AUTOMATED 227 10^3/uL (150-450); RED BLOOD COUNT 3.58 10^6/uL (4.00-5.40); RED CELL DISTRIBUTION WIDTH 18.4 % (11.5-14.5); WHITE BLOOD COUNT 7.5 10^3/uL (4.0-10.0)
[2018-02-11 06:11] LABS: ALBUMIN 3.3 GM/DL (3.2-5.2); ALBUMIN/GLOBULIN RATIO 0.89 (1.00-1.93); ALKALINE PHOSPHATASE 85 U/L (45-117); ALT/SGPT 54 U/L (12-78); ANION GAP 7 MEQ/L (8-16); AST/SGOT 14 U/L (7-37); BILIRUBIN,TOTAL 0.3 MG/DL (0.2-1.0); BLOOD UREA NITROGEN 24 MG/DL (7-18); CALCIUM LEVEL 8.3 MG/DL (8.5-10.1); CARBON DIOXIDE LEVEL 37 MEQ/L (21-32); CHLORIDE LEVEL 96 MEQ/L (98-107); CREATININE FOR GFR 1.11 MG/DL (0.55-1.30); GLOMERULAR FILTRATION RATE 58.9 (>60); GLUCOSE, FASTING 118 MG/DL (70-100); MAGNESIUM LEVEL 2.1 MG/DL (1.8-2.4); POTASSIUM SERUM 3.7 MEQ/L (3.5-5.1); SODIUM LEVEL 140 MEQ/L (136-145)
[2018-02-11] MEDS: TRIAMCINOLONE ACET 0.1% CREAM 80 GM TOP (09:00)
[2018-02-11] MEDS: MORPHINE 30 MG SA TAB PO (09:09)
[2018-02-11] MEDS: FUROSEMIDE 40 MG TAB PO (09:09)
[2018-02-11] MEDS: CYCLOBENZAPRINE 10 MG TAB PO (09:10)
[2018-02-11] MEDS: ONDANSETRON 4 MG ORAL DISINTEGRATING TAB (Q0162 PER 1MG) PO (09:10)
[2018-02-11] MEDS: MAGNESIUM OXIDE 400 MG TAB (MAG-OX) PO (09:10)
[2018-02-11] MEDS: GABAPENTIN 300 MG CAP PO (09:11)
[2018-02-11] MEDS: ENOXAPARIN 40 MG/0.4 ML SYRINGE (J1650) SC (09:11)
[2018-02-12] MEDS ORDERED: GABAPENTIN 300 MG CAP PO (09:00)
== END 2018-02-11 12:54 | disposition home or self-care (01) | DRG 300 ==
LOC: M ED 11:22 → M ED INP 19:04 → M MSPAV 21:58
DX: I87.1 Compression of vein (principal); C79.51 Secondary malignant neoplasm of bone; C78.00 Secondary malignant neoplasm of unspecified lung; C79.89 Secondary malignant neoplasm of other specified sites; C53.9 Malignant neoplasm of cervix uteri, unspecified; Z93.6 Other artificial openings of urinary tract status; E87.70 Fluid overload, unspecified; G89.3 Neoplasm related pain (acute) (chronic); K64.8 Other hemorrhoids; Z79.899 Other long term (current) drug therapy; Z88.8 Allergy status to other drugs, medicaments and biological substances; R21 Rash and other nonspecific skin eruption

== ENCOUNTER 2018-03-03 23:23 | Emergency (ER) | payer MEDICARE, MEDICAID ==
[2018-03-04 00:59] LABS: HEMATOCRIT 37.9 % (36.0-47.0); HEMOGLOBIN 12.3 g/dl (12.0-15.5); MEAN CORPUSCULAR HEMOGLOBIN 29.1 pg (27.0-33.0); MEAN CORPUSCULAR HGB CONC 32.5 g/dl (32.0-36.5); MEAN CORPUSCULAR VOLUME 89.8 fl (80.0-96.0); PLATELET COUNT, AUTOMATED 202 10^3/uL (150-450); RED BLOOD COUNT 4.22 10^6/uL (4.00-5.40); RED CELL DISTRIBUTION WIDTH 17.2 % (11.5-14.5)
[2018-03-04 01:00] LABS: ADD MANUAL DIFFER YES; DIFF SLIDE NUMBER 418; POS COUNT POS FLAG; POSITIVE MORPH POS FLAG
[2018-03-04 01:08] LABS: ANION GAP 10 MEQ/L (8-16); BLOOD UREA NITROGEN 27 MG/DL (7-18); CALCIUM LEVEL 8.5 MG/DL (8.5-10.1); CARBON DIOXIDE LEVEL 32 MEQ/L (21-32); CHLORIDE LEVEL 96 MEQ/L (98-107); CK-MB VALUE MASS < 1.0 NG/ML (<3.6); CPK CREATINE PHOSPHOKINASE 74 U/L (26-192); CREATININE FOR GFR 1.15 MG/DL (0.55-1.30); GLOMERULAR FILTRATION RATE 56.5 (>60); GLUCOSE, FASTING 261 MG/DL (70-100); MB/CK RELATIVE INDEX 1.35 (< OR =4); POTASSIUM SERUM 4.6 MEQ/L (3.5-5.1); SODIUM LEVEL 138 MEQ/L (136-145); TROPONIN I < 0.02 NG/ML (< 0.10)
[2018-03-04] MEDS: MORPHINE 4 MG/ML 1ML VIAL/SYRINGE (J2270) IV (01:15)
[2018-03-04] MEDS: LORazepam 2 MG/ML VIAL (J2060) IV (01:15)
[2018-03-04] MEDS: SODIUM CHLORIDE 0.9% INJ 10 ML SYR IV (01:22)
[2018-03-04 01:25] LABS: BANDS 2 % (< 11); LYMPHOCYTES 2 % (16-52); MONOCYTES 3 % (0-8); MYELOCYTES 1 % (0-0); NEUTROPHILS 92 % (35-75)
[2018-03-04 01:26] LABS: ANISOCYTOSIS 2+; PLATELET ESTIMATE NORMAL (NORMAL)
[2018-03-04] MEDS ORDERED: ISOVUE-370 76% 100ML VIAL (Q9967) As Ordered (01:37)
== END 2018-03-04 03:57 | disposition home or self-care (01) ==
LOC: M ED 23:23
DX: K59.03 Drug induced constipation (principal); C53.9 Malignant neoplasm of cervix uteri, unspecified; R00.0 Tachycardia, unspecified; K42.9 Umbilical hernia without obstruction or gangrene; Z45.2 Encounter for adjustment and management of vascular access device; Z79.4 Long term (current) use of insulin; Z79.891 Long term (current) use of opiate analgesic; Z79.899 Other long term (current) drug therapy; Z88.8 Allergy status to other drugs, medicaments and biological substances
CPT/HCPCS: J2270

== ENCOUNTER → 2018-03-13 | Outpatient (REF) | payer MEDICARE, MEDICAID | LOC: M SFHCCAPE 16:13 | DX: R23.8 Other skin changes (principal) | CPT/HCPCS: 87077 ==

== ENCOUNTER 2018-03-16 08:22 | Inpatient (IN) | payer MEDICARE, MEDICAID ==
[2018-03-16] MEDS: ASPIRIN 81 MG CHEW TABLET PO (08:55)
[2018-03-16 09:42] LABS: BASO % 0.4 % (0.0-1.0); EOS # 0.1 10^3/uL (0.0-0.50); HEMATOCRIT 38.6 % (36.0-47.0); HEMOGLOBIN 12.7 g/dl (12.0-15.5); IMMATURE GRANULOCYTE % 2.7 % (0-3.0); LYMPH # 0.6 10^3/uL (1.5-4.5); LYMPH % 9.6 % (24.0-44.0); MEAN CORPUSCULAR HEMOGLOBIN 29.1 pg (27.0-33.0); MEAN CORPUSCULAR HGB CONC 32.9 g/dl (32.0-36.5); MEAN CORPUSCULAR VOLUME 88.3 fl (80.0-96.0); MONO # 0.5 10^3/uL (0.0-0.8); MONO % 7.8 % (0.0-5.0); NEUTROPHILS # 5.3 10^3/uL (1.8-7.7); NEUTROPHILS % 78.5 % (36.0-66.0); PLATELET COUNT, AUTOMATED 158 10^3/uL (150-450); RED BLOOD COUNT 4.37 10^6/uL (4.00-5.40); WHITE BLOOD COUNT 6.7 10^3/uL (4.0-10.0)
[2018-03-16 10:00] LABS: INR 0.95; PARTIAL THROMBOPLASTIN TIME 24.7 SECONDS (25.4-37.6); PROTHROMBIN TIME 12.7 SECONDS (12.1-14.4)
[2018-03-16] MEDS: NITROGLYCERIN 0.4 MG SUBL TABLET SL ×3 (10:04→10:24)
[2018-03-16 10:11] LABS: ALBUMIN 3.2 GM/DL (3.2-5.2); ALBUMIN/GLOBULIN RATIO 0.86 (1.00-1.93); ALKALINE PHOSPHATASE 118 U/L (45-117); ALT/SGPT 39 U/L (12-78); ANION GAP 11 MEQ/L (8-16); AST/SGOT 11 U/L (7-37); BILIRUBIN,DIRECT < 0.1 MG/DL (0.0-0.2); BILIRUBIN,TOTAL 0.5 MG/DL (0.2-1.0); BLOOD UREA NITROGEN 14 MG/DL (7-18); CALCIUM LEVEL 7.9 MG/DL (8.5-10.1); CARBON DIOXIDE LEVEL 32 MEQ/L (21-32); CHLORIDE LEVEL 93 MEQ/L (98-107); CK-MB VALUE MASS < 1.0 NG/ML (<3.6); CPK CREATINE PHOSPHOKINASE 38 U/L (26-192); CREATININE FOR GFR 0.97 MG/DL (0.55-1.30); GLOMERULAR FILTRATION RATE > 60.0 (>60); GLUCOSE, FASTING 223 MG/DL (70-100); MB/CK RELATIVE INDEX 2.63 (< OR =4); NT-PRO BNP 19 PG/ML (<125); POTASSIUM SERUM 2.7 MEQ/L (3.5-5.1); SODIUM LEVEL 136 MEQ/L (136-145); TOTAL PROTEIN 6.9 GM/DL (6.4-8.2); TROPONIN I < 0.02 NG/ML (< 0.10)
[2018-03-16] MEDS: KCL 10MEQ/100ML SWI (KRUN) 10 MEQ in APPROPRIATE DILUENT 1 EA IV (10:24)
[2018-03-16] MEDS: POTASSIUM CHLORIDE 10 MEQ SR TABLET PO (10:24)
[2018-03-16] MEDS ORDERED: ISOVUE-370 76% 100ML VIAL (Q9967) As Ordered (10:27)
[2018-03-16] MEDS ORDERED: LIDOCAINE 5% (LIDODERM) PATCH TOP (14:30)
[2018-03-16] MEDS ORDERED: BISACODYL 10 MG SUPP PR (14:30)
[2018-03-16] MEDS ORDERED: ACETAMINOPHEN TAB 650MG DOSE (2X325MG) PO (14:30)
[2018-03-16] MEDS: MAGNESIUM OXIDE 400 MG TAB (MAG-OX) PO (15:13)
[2018-03-16] MEDS: oxyCODONE 5MG TAB PO (15:14)
[2018-03-16] MEDS: CYCLOBENZAPRINE 10 MG TAB PO ×2 (16:00→22:13)
[2018-03-16 18:54] LABS: ALBUMIN 3.3 GM/DL (3.2-5.2); ANION GAP 11 MEQ/L (8-16); BLOOD UREA NITROGEN 13 MG/DL (7-18); CARBON DIOXIDE LEVEL 30 MEQ/L (21-32); CHLORIDE LEVEL 94 MEQ/L (98-107); CREATININE FOR GFR 0.99 MG/DL (0.55-1.30); GLOMERULAR FILTRATION RATE > 60.0 (>60); GLUCOSE, FASTING 260 MG/DL (70-100); PHOSPHORUS LEVEL 2.3 MG/DL (2.5-4.9); POTASSIUM SERUM 3.5 MEQ/L (3.5-5.1); SODIUM LEVEL 135 MEQ/L (136-145)
[2018-03-16 22:09] LABS: HEMATOCRIT 35.6 % (36.0-47.0); HEMOGLOBIN 11.4 g/dl (12.0-15.5); MEAN CORPUSCULAR HEMOGLOBIN 28.6 pg (27.0-33.0); MEAN CORPUSCULAR VOLUME 89.2 fl (80.0-96.0); PLATELET COUNT, AUTOMATED 140 10^3/uL (150-450); RED BLOOD COUNT 3.99 10^6/uL (4.00-5.40); RED CELL DISTRIBUTION WIDTH 16.9 % (11.5-14.5); WHITE BLOOD COUNT 6.3 10^3/uL (4.0-10.0)
[2018-03-16] MEDS: ENOXAPARIN 40 MG/0.4 ML SYRINGE (J1650) SC ×2 (22:10→22:35)
[2018-03-16] MEDS: aMILoride 5 MG TAB PO (22:11)
[2018-03-16] MEDS: GABAPENTIN 100 MG CAP PO (22:11)
[2018-03-16] MEDS: NYSTATIN 500,000 U/5 ML SUSP UDC SS ×2 (22:12→22:20)
[2018-03-16] MEDS: SENOKOT S TAB PO (22:13)
[2018-03-16] MEDS: MIRTAZAPINE 15 MG TAB PO (22:13)
[2018-03-16] MEDS: GABAPENTIN 300 MG CAP PO (22:13)
[2018-03-16] MEDS: MORPHINE 30 MG SA TAB PO (22:17)
[2018-03-16] MEDS: FUROSEMIDE 40 MG TAB PO ×2 (22:20→22:35)
[2018-03-16] MEDS: **NOTE PATIENT COMMENT** MISC XX (22:21)
[2018-03-17] MEDS: oxyCODONE 5MG TAB PO ×3 (02:48→19:31)
[2018-03-17 06:02] LABS: BASO % 0.3 % (0.0-1.0); HEMATOCRIT 38.3 % (36.0-47.0); HEMOGLOBIN 12.6 g/dl (12.0-15.5); IMMATURE GRANULOCYTE % 2.7 % (0-3.0); LYMPH # 0.4 10^3/uL (1.5-4.5); LYMPH % 6.2 % (24.0-44.0); MEAN CORPUSCULAR HEMOGLOBIN 29.2 pg (27.0-33.0); MEAN CORPUSCULAR HGB CONC 32.9 g/dl (32.0-36.5); MEAN CORPUSCULAR VOLUME 88.7 fl (80.0-96.0); MONO # 0.3 10^3/uL (0.0-0.8); MONO % 5.5 % (0.0-5.0); NEUTROPHILS # 5.1 10^3/uL (1.8-7.7); NEUTROPHILS % 85.3 % (36.0-66.0); PLATELET COUNT, AUTOMATED 152 10^3/uL (150-450); RED BLOOD COUNT 4.32 10^6/uL (4.00-5.40); RED CELL DISTRIBUTION WIDTH 16.8 % (11.5-14.5)
[2018-03-17 06:26] LABS: ALBUMIN/GLOBULIN RATIO 0.67 (1.00-1.93); ALKALINE PHOSPHATASE 112 U/L (45-117); ALT/SGPT 38 U/L (12-78); ANION GAP 8 MEQ/L (8-16); AST/SGOT 11 U/L (7-37); BILIRUBIN,TOTAL 0.5 MG/DL (0.2-1.0); BLOOD UREA NITROGEN 13 MG/DL (7-18); CARBON DIOXIDE LEVEL 33 MEQ/L (21-32); CHLORIDE LEVEL 94 MEQ/L (98-107); CREATININE FOR GFR 1.04 MG/DL (0.55-1.30); GLOMERULAR FILTRATION RATE > 60.0 (>60); GLUCOSE, FASTING 335 MG/DL (70-100); POTASSIUM SERUM 3.2 MEQ/L (3.5-5.1); SODIUM LEVEL 135 MEQ/L (136-145); TOTAL PROTEIN 7.5 GM/DL (6.4-8.2)
[2018-03-17] MEDS: NYSTATIN 500,000 U/5 ML SUSP UDC SS ×4 (08:06→20:57)
[2018-03-17] MEDS: aMILoride 5 MG TAB PO (08:06)
[2018-03-17] MEDS: MORPHINE 30 MG SA TAB PO ×2 (08:07→20:58)
[2018-03-17] MEDS: GABAPENTIN 100 MG CAP PO ×2 (08:07→15:27)
[2018-03-17] MEDS: CYCLOBENZAPRINE 10 MG TAB PO ×3 (08:07→20:57)
[2018-03-17] MEDS: SENOKOT S TAB PO ×2 (08:08→20:57)
[2018-03-17] MEDS: FUROSEMIDE 40 MG TAB PO ×2 (08:08→19:09)
[2018-03-17] MEDS: GASTROGRAFIN SOLUTION 30ML PO ×2 (08:08→08:45)
[2018-03-17] MEDS: MAGNESIUM OXIDE 400 MG TAB (MAG-OX) PO (08:08)
[2018-03-17] MEDS: ONDANSETRON 4 MG TAB (S0181) PO (09:21)
[2018-03-17] MEDS ORDERED: ISOVUE-370 76% 100ML VIAL (Q9967) As Ordered (09:53)
[2018-03-17] MEDS: POTASSIUM CHLORIDE 10 MEQ SR TABLET PO (11:14)
[2018-03-17] MEDS: GABAPENTIN 300 MG CAP PO (20:57)
[2018-03-17] MEDS: PANTOPRAZOLE 40MG TAB (PROTONIX) PO (20:57)
[2018-03-17] MEDS: MIRTAZAPINE 15 MG TAB PO (20:57)
[2018-03-17] MEDS: **NOTE PATIENT COMMENT** MISC XX (20:59)
[2018-03-18] MEDS: oxyCODONE 5MG TAB PO ×2 (06:31→13:38)
[2018-03-18 06:42] LABS: ANION GAP 11 MEQ/L (8-16); BLOOD UREA NITROGEN 20 MG/DL (7-18); CALCIUM LEVEL 8.3 MG/DL (8.5-10.1); CARBON DIOXIDE LEVEL 29 MEQ/L (21-32); CHLORIDE LEVEL 98 MEQ/L (98-107); CREATININE FOR GFR 1.16 MG/DL (0.55-1.30); GLUCOSE, FASTING 348 MG/DL (70-100); POTASSIUM SERUM 3.6 MEQ/L (3.5-5.1); SODIUM LEVEL 138 MEQ/L (136-145)
[2018-03-18] MEDS: PANTOPRAZOLE 40MG TAB (PROTONIX) PO (08:34)
[2018-03-18] MEDS: NYSTATIN 500,000 U/5 ML SUSP UDC SS ×4 (08:35→20:02)
[2018-03-18] MEDS: GABAPENTIN 100 MG CAP PO ×2 (08:35→15:03)
[2018-03-18] MEDS: MORPHINE 30 MG SA TAB PO ×2 (08:35→20:04)
[2018-03-18] MEDS: aMILoride 5 MG TAB PO (08:35)
[2018-03-18] MEDS: MAGNESIUM OXIDE 400 MG TAB (MAG-OX) PO (08:35)
[2018-03-18] MEDS: SENOKOT S TAB PO ×2 (08:35→20:02)
[2018-03-18] MEDS: FUROSEMIDE 40 MG TAB PO ×2 (08:36→16:32)
[2018-03-18] MEDS: CYCLOBENZAPRINE 10 MG TAB PO ×3 (08:36→20:02)
[2018-03-18] MEDS: GOLYTELY SOLN 4000 ML BTL PO (10:46)
[2018-03-18] MEDS ORDERED: GLUCAGON FOR INJ 1 MG VIAL (J1610) SC (15:45)
[2018-03-18] MEDS ORDERED: DEXTROSE 50% 50 ML SYRINGE IV (15:45)
[2018-03-18] MEDS ORDERED: GLUCOSE 4 GM CHEW TABLET PO (15:45)
[2018-03-18] MEDS: ONDANSETRON 4 MG TAB (S0181) PO (16:32)
[2018-03-18] MEDS: MAGNESIUM CITRATE 300 ML BTL PO (16:32)
[2018-03-18 16:44] LABS: BEDSIDE GLUCOSE 464 MG/DL (70-105)
[2018-03-18] MEDS: HumaLOG INSULIN (NovoLOG) PER UNIT SC ×2 (17:37→20:05)
[2018-03-18] MEDS: **NOTE PATIENT COMMENT** MISC XX (19:39)
[2018-03-18 19:54] LABS: BEDSIDE GLUCOSE 318 MG/DL (70-105)
[2018-03-18] MEDS: GABAPENTIN 300 MG CAP PO (20:02)
[2018-03-18] MEDS: LEVEMIR (INSULIN DETEMIR) 1 UNITS/0.01ML SC (20:04)
[2018-03-18] MEDS: MIRTAZAPINE 15 MG TAB PO (20:04)
[2018-03-18] MEDS: ENOXAPARIN 40 MG/0.4 ML SYRINGE (J1650) SC (20:05)
[2018-03-18] MEDS: EUCERIN 120GM CREAM TOP (20:06)
[2018-03-19] MEDS: oxyCODONE 5MG TAB PO ×4 (02:03→23:14)
[2018-03-19 06:14] LABS: BEDSIDE GLUCOSE 134 MG/DL (70-105)
[2018-03-19] MEDS: HumaLOG INSULIN (NovoLOG) PER UNIT SC ×4 (07:30→21:27)
[2018-03-19 08:32] LABS: BEDSIDE GLUCOSE 168 MG/DL (70-105)
[2018-03-19] MEDS ORDERED: LIDOCAINE 2% INJ 100 MG/5 ML SDV (FOR ANES.) As Ordered (08:44)
[2018-03-19] MEDS ORDERED: PROPOFOL 500 MG/50 ML VIAL As Ordered (08:44)
[2018-03-19] MEDS ORDERED: MORPHINE 4 MG/ML 1ML VIAL/SYRINGE (J2270) As Ordered (08:54)
[2018-03-19] MEDS: MORPHINE 4 MG/ML 1ML VIAL/SYRINGE (J2270) IV (09:03)
[2018-03-19 09:04] LABS: HEMATOCRIT 36.6 % (36.0-47.0); HEMOGLOBIN 11.6 g/dl (12.0-15.5); MEAN CORPUSCULAR HEMOGLOBIN 28.9 pg (27.0-33.0); MEAN CORPUSCULAR HGB CONC 31.7 g/dl (32.0-36.5); PLATELET COUNT, AUTOMATED 173 10^3/uL (150-450); RED BLOOD COUNT 4.02 10^6/uL (4.00-5.40); RED CELL DISTRIBUTION WIDTH 16.7 % (11.5-14.5); WHITE BLOOD COUNT 5.4 10^3/uL (4.0-10.0)
[2018-03-19] MEDS ORDERED: ISOVUE-370 76% 100ML VIAL (Q9967) As Ordered (09:21)
[2018-03-19 09:30] LABS: ALBUMIN/GLOBULIN RATIO 0.86 (1.00-1.93); ALKALINE PHOSPHATASE 96 U/L (45-117); ALT/SGPT 44 U/L (12-78); ANION GAP 8 MEQ/L (8-16); AST/SGOT 18 U/L (7-37); BILIRUBIN,TOTAL 0.4 MG/DL (0.2-1.0); BLOOD UREA NITROGEN 12 MG/DL (7-18); CALCIUM LEVEL 7.7 MG/DL (8.5-10.1); CARBON DIOXIDE LEVEL 36 MEQ/L (21-32); CHLORIDE LEVEL 97 MEQ/L (98-107); CK-MB VALUE MASS < 1.0 NG/ML (<3.6); CPK CREATINE PHOSPHOKINASE 40 U/L (26-192); CREATININE FOR GFR 0.94 MG/DL (0.55-1.30); GLOMERULAR FILTRATION RATE > 60.0 (>60); GLUCOSE, FASTING 167 MG/DL (70-100); POTASSIUM SERUM 3.4 MEQ/L (3.5-5.1); SODIUM LEVEL 141 MEQ/L (136-145); TOTAL PROTEIN 6.5 GM/DL (6.4-8.2); TROPONIN I < 0.02 NG/ML (< 0.10)
[2018-03-19] MEDS: aMILoride 5 MG TAB PO (11:26)
[2018-03-19] MEDS: NYSTATIN 500,000 U/5 ML SUSP UDC SS ×4 (11:26→21:25)
[2018-03-19] MEDS: CYCLOBENZAPRINE 10 MG TAB PO ×3 (11:27→21:26)
[2018-03-19] MEDS: SENOKOT S TAB PO ×2 (11:27→21:26)
[2018-03-19] MEDS: FUROSEMIDE 40 MG TAB PO ×2 (11:27→16:08)
[2018-03-19] MEDS: GABAPENTIN 100 MG CAP PO ×2 (11:27→16:07)
[2018-03-19] MEDS: PANTOPRAZOLE 40MG TAB (PROTONIX) PO (11:28)
[2018-03-19] MEDS: MORPHINE 30 MG SA TAB PO ×2 (11:29→21:26)
[2018-03-19] MEDS: MAGNESIUM OXIDE 400 MG TAB (MAG-OX) PO (11:29)
[2018-03-19] MEDS: EUCERIN 120GM CREAM TOP ×2 (11:30→21:28)
[2018-03-19 11:44] LABS: BEDSIDE GLUCOSE 284 MG/DL (70-105)
[2018-03-19 16:47] LABS: BEDSIDE GLUCOSE 467 MG/DL (70-105)
[2018-03-19 16:56] LABS: BEDSIDE GLUCOSE 410 MG/DL (70-105)
[2018-03-19] MEDS: POTASSIUM CHLORIDE 10 MEQ SR TABLET PO (17:02)
[2018-03-19 20:03] LABS: BEDSIDE GLUCOSE 373 MG/DL (70-105)
[2018-03-19] MEDS: **NOTE PATIENT COMMENT** MISC XX (21:00)
[2018-03-19] MEDS: ENOXAPARIN 40 MG/0.4 ML SYRINGE (J1650) SC (21:00)
[2018-03-19] MEDS: GABAPENTIN 300 MG CAP PO (21:26)
[2018-03-19] MEDS: MIRTAZAPINE 15 MG TAB PO (21:26)
[2018-03-19] MEDS: LEVEMIR (INSULIN DETEMIR) 1 UNITS/0.01ML SC (21:27)
[2018-03-20] MEDS: oxyCODONE 5MG TAB PO ×2 (05:25→13:17)
[2018-03-20 06:22] LABS: BEDSIDE GLUCOSE 206 MG/DL (70-105)
[2018-03-20] MEDS: HumaLOG INSULIN (NovoLOG) PER UNIT SC ×2 (09:41→12:34)
[2018-03-20] MEDS: NYSTATIN 500,000 U/5 ML SUSP UDC SS ×2 (09:41→12:35)
[2018-03-20] MEDS: PANTOPRAZOLE 40MG TAB (PROTONIX) PO (09:42)
[2018-03-20] MEDS: MORPHINE 30 MG SA TAB PO (09:42)
[2018-03-20] MEDS: MAGNESIUM OXIDE 400 MG TAB (MAG-OX) PO (09:42)
[2018-03-20] MEDS: aMILoride 5 MG TAB PO (09:42)
[2018-03-20] MEDS: CYCLOBENZAPRINE 10 MG TAB PO (09:42)
[2018-03-20] MEDS: GABAPENTIN 100 MG CAP PO (09:42)
[2018-03-20] MEDS: FUROSEMIDE 40 MG TAB PO (09:42)
[2018-03-20] MEDS: EUCERIN 120GM CREAM TOP (09:43)
[2018-03-20] MEDS: SENOKOT S TAB PO (09:43)
[2018-03-20] MEDS: ONDANSETRON 4 MG TAB (S0181) PO (09:48)
[2018-03-20 10:46] LABS: ANION GAP 10 MEQ/L (8-16); BLOOD UREA NITROGEN 19 MG/DL (7-18); CALCIUM LEVEL 8.6 MG/DL (8.5-10.1); CARBON DIOXIDE LEVEL 30 MEQ/L (21-32); CHLORIDE LEVEL 98 MEQ/L (98-107); CREATININE FOR GFR 1.01 MG/DL (0.55-1.30); GLOMERULAR FILTRATION RATE > 60.0 (>60); GLUCOSE, FASTING 243 MG/DL (70-100); POTASSIUM SERUM 3.5 MEQ/L (3.5-5.1); SODIUM LEVEL 138 MEQ/L (136-145)
[2018-03-20 11:43] LABS: ESTIMATED AVERAGE GLUCOSE 232 MG/DL (60-110); HEMOGLOBIN A1c 9.7 %
[2018-03-20 11:49] LABS: BEDSIDE GLUCOSE 421 MG/DL (70-105)
[2018-03-20] MEDS: POTASSIUM CHLORIDE 10 MEQ SR TABLET PO (12:35)
== END 2018-03-20 14:00 | disposition home or self-care (01) | DRG 641 ==
LOC: M ED 08:22 → M ED INP 14:28 → M MSPAV 18:37
DX: E87.6 Hypokalemia (principal); C79.51 Secondary malignant neoplasm of bone; C79.00 Secondary malignant neoplasm of unspecified kidney and renal pelvis; K62.5 Hemorrhage of anus and rectum; N20.1 Calculus of ureter; C53.9 Malignant neoplasm of cervix uteri, unspecified; E11.65 Type 2 diabetes mellitus with hyperglycemia; Z79.4 Long term (current) use of insulin; Z79.899 Other long term (current) drug therapy; G89.29 Other chronic pain; Z87.891 Personal history of nicotine dependence; Z88.8 Allergy status to other drugs, medicaments and biological substances

== ENCOUNTER → 2018-03-25 | Outpatient (REF) | payer MEDICARE, MEDICAID ==
[2018-03-25 17:45] LABS: HEMATOCRIT 35.8 % (36.0-47.0); HEMOGLOBIN 11.5 g/dl (12.0-15.5); MEAN CORPUSCULAR HEMOGLOBIN 28.6 pg (27.0-33.0); MEAN CORPUSCULAR HGB CONC 32.1 g/dl (32.0-36.5); MEAN CORPUSCULAR VOLUME 89.1 fl (80.0-96.0); PLATELET COUNT, AUTOMATED 255 10^3/uL (150-450); RED BLOOD COUNT 4.02 10^6/uL (4.00-5.40); RED CELL DISTRIBUTION WIDTH 16.8 % (11.5-14.5); WHITE BLOOD COUNT 8.7 10^3/uL (4.0-10.0)
[2018-03-25 17:57] LABS: POS COUNT POS FLAG; POSITIVE MORPH POS FLAG
[2018-03-25 17:58] LABS: ADD MANUAL DIFFER YES; DIFF SLIDE NUMBER 227
[2018-03-25 18:07] LABS: ANION GAP 12 MEQ/L (8-16); BLOOD UREA NITROGEN 23 MG/DL (7-18); CALCIUM LEVEL 8.9 MG/DL (8.5-10.1); CARBON DIOXIDE LEVEL 31 MEQ/L (21-32); CHLORIDE LEVEL 92 MEQ/L (98-107); CREATININE FOR GFR 0.94 MG/DL (0.55-1.30); GLOMERULAR FILTRATION RATE > 60.0 (>60); GLUCOSE, FASTING 270 MG/DL (70-100); POTASSIUM SERUM 3.5 MEQ/L (3.5-5.1); SODIUM LEVEL 135 MEQ/L (136-145)
[2018-03-25 21:20] LABS: BANDS 1 % (< 11); EOSINOPHILS 2 % (0-5); LYMPHOCYTES 7 % (16-52); MONOCYTES 9 % (0-8); MYELOCYTES 4 % (0-0); NEUTROPHILS 77 % (35-75)
[2018-03-25 21:21] LABS: PLATELET ESTIMATE NORMAL (NORMAL)
[2018-03-25 21:22] LABS: ANISOCYTOSIS 2+
== END ==
LOC: M SFHCCLAY 11:05
DX: E87.6 Hypokalemia (principal); E11.9 Type 2 diabetes mellitus without complications
CPT/HCPCS: 80048

== ENCOUNTER 2018-04-14 17:09 | Emergency (ER) | payer MEDICARE, MEDICAID ==
[2018-04-14 19:31] LABS: BASO % 0.4 % (0.0-1.0); EOS % 0.3 % (0.0-3.0); HEMATOCRIT 37.2 % (36.0-47.0); HEMOGLOBIN 11.7 g/dl (12.0-15.5); IMMATURE GRANULOCYTE % 2.6 % (0-3.0); LYMPH # 0.4 10^3/uL (1.5-4.5); LYMPH % 5.2 % (24.0-44.0); MEAN CORPUSCULAR HEMOGLOBIN 27.9 pg (27.0-33.0); MEAN CORPUSCULAR HGB CONC 31.5 g/dl (32.0-36.5); MEAN CORPUSCULAR VOLUME 88.8 fl (80.0-96.0); MONO # 0.3 10^3/uL (0.0-0.8); MONO % 4.2 % (0.0-5.0); NEUTROPHILS % 87.3 % (36.0-66.0); PLATELET COUNT, AUTOMATED 210 10^3/uL (150-450); RED BLOOD COUNT 4.19 10^6/uL (4.00-5.40); RED CELL DISTRIBUTION WIDTH 17.6 % (11.5-14.5); WHITE BLOOD COUNT 6.9 10^3/uL (4.0-10.0)
[2018-04-14 19:33] LABS: KETONE, URINE AUTO RFX NEGATIVE (NEGATIVE); LEUKOCYTE ESTERASE UR AUTO RFX NEGATIVE (NEGATIVE); NITRITE, URINE AUTO RFX NEGATIVE (NEGATIVE); RBC, URINE AUTO RFX 2 /HPF (0-3); SPECIFIC GRAVITY UR AUTO RFX 1.008 (1.002-1.035); SQUAM EPITHELIAL CELL UR AURFX 0 /HPF (0-6); WBC, URINE AUTO RFX 1 /HPF (0-3)
[2018-04-14 19:42] LABS: INR 0.96; PROTHROMBIN TIME 12.9 SECONDS (12.1-14.4)
[2018-04-14 19:43] LABS: PARTIAL THROMBOPLASTIN TIME 23.7 SECONDS (25.4-37.6)
[2018-04-14 19:46] LABS: ANION GAP 9 MEQ/L (8-16); BLOOD UREA NITROGEN 17 MG/DL (7-18); CALCIUM LEVEL 8.4 MG/DL (8.5-10.1); CARBON DIOXIDE LEVEL 31 MEQ/L (21-32); CHLORIDE LEVEL 96 MEQ/L (98-107); CREATININE FOR GFR 1.03 MG/DL (0.55-1.30); GLOMERULAR FILTRATION RATE > 60.0 (>60); GLUCOSE, FASTING 337 MG/DL (70-100); POTASSIUM SERUM 3.6 MEQ/L (3.5-5.1); SODIUM LEVEL 136 MEQ/L (136-145)
[2018-04-14] MEDS ORDERED: NS 1,000 ML IV (20:15)
[2018-04-14] MEDS ORDERED: SODIUM CHLORIDE 0.9% INJ 10 ML SYR IV (20:30)
[2018-04-14] MEDS: oxyCODONE 10 MG CR TAB PO (21:07)
== END 2018-04-14 22:22 | disposition home or self-care (01) ==
LOC: M ED 17:09
DX: T83.092A Other mechanical complication of nephrostomy catheter, initial encounter (principal); R31.9 Hematuria, unspecified; Y73.2 Prosthetic and other implants, materials and accessory gastroenterology and urology devices associated with adverse incidents; R10.9 Unspecified abdominal pain; M54.12 Radiculopathy, cervical region; Z86.19 Personal history of other infectious and parasitic diseases; I10 Essential (primary) hypertension; K21.9 Gastro-esophageal reflux disease without esophagitis; E11.9 Type 2 diabetes mellitus without complications; F41.9 Anxiety disorder, unspecified; F32.9 Major depressive disorder, single episode, unspecified; D75.9 Disease of blood and blood-forming organs, unspecified; Z85.528 Personal history of other malignant neoplasm of kidney; Z85.830 Personal history of malignant neoplasm of bone; Z85.41 Personal history of malignant neoplasm of cervix uteri; Z85.038 Personal history of other malignant neoplasm of large intestine; Z88.8 Allergy status to other drugs, medicaments and biological substances; Z79.899 Other long term (current) drug therapy; Z79.891 Long term (current) use of opiate analgesic; Z79.2 Long term (current) use of antibiotics; Z79.4 Long term (current) use of insulin; Z92.21 Personal history of antineoplastic chemotherapy; Z92.3 Personal history of irradiation; Z87.891 Personal history of nicotine dependence
CPT/HCPCS: 74176

== ENCOUNTER → 2018-07-10 | Outpatient (CLI) | payer MEDICARE, OTHER, MEDICAID ==
[2018-07-10 10:16] LABS: BASO % 0.3 % (0.0-1.0); EOS # 0.4 10^3/uL (0.0-0.50); EOS % 6.4 % (0.0-3.0); HEMATOCRIT 32.7 % (36.0-47.0); IMMATURE GRANULOCYTE % 0.5 % (0-3.0); LYMPH # 0.4 10^3/uL (1.5-4.5); LYMPH % 6.2 % (24.0-44.0); MEAN CORPUSCULAR HEMOGLOBIN 24.8 pg (27.0-33.0); MEAN CORPUSCULAR HGB CONC 30.6 g/dl (32.0-36.5); MEAN CORPUSCULAR VOLUME 81.1 fl (80.0-96.0); MONO # 0.6 10^3/uL (0.0-0.8); MONO % 8.9 % (0.0-5.0); NEUTROPHILS # 4.9 10^3/uL (1.8-7.7); NEUTROPHILS % 77.7 % (36.0-66.0); PLATELET COUNT, AUTOMATED 360 10^3/uL (150-450); RED BLOOD COUNT 4.03 10^6/uL (4.00-5.40); RED CELL DISTRIBUTION WIDTH 19.3 % (11.5-14.5); WHITE BLOOD COUNT 6.3 10^3/uL (4.0-10.0)
[2018-07-10 11:19] LABS: ALBUMIN 2.3 GM/DL (3.2-5.2); ALBUMIN/GLOBULIN RATIO 0.58 (1.00-1.93); ALKALINE PHOSPHATASE 147 U/L (45-117); ALT/SGPT 32 U/L (12-78); ANION GAP 9 MEQ/L (8-16); AST/SGOT 26 U/L (7-37); BILIRUBIN,TOTAL 0.3 MG/DL (0.2-1.0); BLOOD UREA NITROGEN 8 MG/DL (7-18); CALCIUM LEVEL 7.3 MG/DL (8.5-10.1); CARBON DIOXIDE LEVEL 31 MEQ/L (21-32); CHLORIDE LEVEL 99 MEQ/L (98-107); CREATININE FOR GFR 0.96 MG/DL (0.55-1.30); GLOMERULAR FILTRATION RATE > 60.0 (>60); GLUCOSE, FASTING 82 MG/DL (70-100); HCG, SERUM QUANTITATIVE < 1.0 MIU/ML; MAGNESIUM LEVEL 1.6 MG/DL (1.8-2.4); POTASSIUM SERUM 2.9 MEQ/L (3.5-5.1); SODIUM LEVEL 139 MEQ/L (136-145); TOTAL PROTEIN 6.3 GM/DL (6.4-8.2)
== END ==
LOC: M LAB 09:08
DX: C53.8 Malignant neoplasm of overlapping sites of cervix uteri (principal); Z79.899 Other long term (current) drug therapy
CPT/HCPCS: 83735

== ENCOUNTER → 2018-07-15 | Outpatient (REF) | payer OTHER, MEDICAID | LOC: M SFHCCLAY 14:37 | DX: Z53.9 Procedure and treatment not carried out, unspecified reason (principal); E87.6 Hypokalemia ==

== ENCOUNTER → 2018-07-16 | Outpatient (CLI) | payer MEDICARE, MEDICAID, OTHER ==
[2018-07-16 12:27] LABS: BASO % 0.1 % (0.0-1.0); EOS % 0.4 % (0.0-3.0); HEMATOCRIT 30.5 % (36.0-47.0); HEMOGLOBIN 9.3 g/dl (12.0-15.5); IMMATURE GRANULOCYTE % 1.1 % (0-3.0); LYMPH # 0.4 10^3/uL (1.5-4.5); LYMPH % 5.4 % (24.0-44.0); MEAN CORPUSCULAR HEMOGLOBIN 24.5 pg (27.0-33.0); MEAN CORPUSCULAR HGB CONC 30.5 g/dl (32.0-36.5); MEAN CORPUSCULAR VOLUME 80.3 fl (80.0-96.0); MONO # 0.5 10^3/uL (0.0-0.8); NEUTROPHILS # 6.5 10^3/uL (1.8-7.7); PLATELET COUNT, AUTOMATED 339 10^3/uL (150-450); RED CELL DISTRIBUTION WIDTH 19.5 % (11.5-14.5); WHITE BLOOD COUNT 7.5 10^3/uL (4.0-10.0)
== END ==
LOC: M LAB 11:33
DX: C53.8 Malignant neoplasm of overlapping sites of cervix uteri (principal); Z79.899 Other long term (current) drug therapy
CPT/HCPCS: 85025

== ENCOUNTER → 2018-07-16 | Outpatient (CLI) | payer MEDICARE, MEDICAID, OTHER ==
[2018-07-16 12:44] LABS: ANION GAP 9 MEQ/L (8-16); BLOOD UREA NITROGEN 24 MG/DL (7-18); CALCIUM LEVEL 8.6 MG/DL (8.5-10.1); CARBON DIOXIDE LEVEL 33 MEQ/L (21-32); CHLORIDE LEVEL 95 MEQ/L (98-107); CREATININE FOR GFR 1.34 MG/DL (0.55-1.30); GLOMERULAR FILTRATION RATE 47.1 (>60); GLUCOSE, FASTING 123 MG/DL (70-100); POTASSIUM SERUM 3.2 MEQ/L (3.5-5.1); SODIUM LEVEL 137 MEQ/L (136-145)
== END ==
LOC: M LAB 11:29
DX: R60.9 Edema, unspecified (principal)
CPT/HCPCS: 80048

== ENCOUNTER → 2018-07-17 | Outpatient (REF) | payer OTHER, MEDICAID ==
[2018-07-17 17:05] LABS: ANION GAP 8 MEQ/L (8-16); BLOOD UREA NITROGEN 20 MG/DL (7-18); CALCIUM LEVEL 8.2 MG/DL (8.5-10.1); CARBON DIOXIDE LEVEL 33 MEQ/L (21-32); CHLORIDE LEVEL 99 MEQ/L (98-107); CREATININE FOR GFR 1.17 MG/DL (0.55-1.30); GLOMERULAR FILTRATION RATE 55.1 (>60); GLUCOSE, FASTING 107 MG/DL (70-100); POTASSIUM SERUM 3.9 MEQ/L (3.5-5.1); SODIUM LEVEL 140 MEQ/L (136-145)
== END ==
LOC: M SFHCCLAY 11:13
DX: R60.9 Edema, unspecified (principal)

== ENCOUNTER 2018-09-19 14:40 | Emergency (ER) | payer MEDICARE, MEDICAID ==
[~2018-09-19] VITALS: Ht 165.1 cm; Wt 90.0 kg
[~2018-09-19 14:40] MED LIST changes: +/CELE20CA PO; +ACET500C; +ACET500C PO; +AMIL25TA PO; +AMIT25TA2 OR; +AMIT50TA PO; +AMLO5TAB6 PO; +AMOX500T; +AMPI500C9 PO; +AZEL0.1S; +BACL10TA2 PO; +BACL1TAB8; +CHEMO INJ; +CIPR-249 PO; +CIPR500T19; +COLA50CA OR; +CYCL10TA PO; +DEXA0.5E2 PO; +DEXA2TA PO; +DEXA4TA PO; +DOCQ100C5 PO; +DOCU10CA PO; +DOXY-350 PO; +ESTR1CRE PV; +FLAG500T PO; +FLEXERIL PO; +FLOM0.4C39; +FLOM0.4C39 PO; +FOLI1TAB11 PO; +FOLI400T PO; +FURO40TA2 PO; +GABA-1171 PO; +GABA-843 PO; +IBUP-1022 PO; +IBUP200T2 PO; +IBUP400T PO; +IBUPPOW25 PO; +IMOD2CAP PO; +INSUDET SC; -ISOVUE-370 76% 100ML VIAL (Q9967) As Ordered; +KEFL500C17 PO; +KLOR20TA42 PO; +LANTINJ4 SC; +LIDO2.5C15 TOP; +LIDO5TD TOP; +LOPE2CAP PO; +LYRI75CA OR; +LYRI75CA PO; +MACR100C43 PO; +MAGN400T2 PO; +MAPA325T2 PO; +MECL-68 PO; +METF500T13; +MIRA3350 PO; +MIRE1IUD IU; +MIRT15TA3 PO; +MORP1TAB21 PO; +MORP30TASA PO; +MULTIVIT PO; +NICO21DI4; +NIFEREX; +NORCOTAB PO; +NYAM10003 TOP; +NYST50SS PO; +NYST50SS SS; +No Historical Meds; +ONDA4TAB5 PO; +ONDA8TAB7 PO; +OXYC-517 PO; +OXYC10TA12 PO; +OXYC10TA3 PO; +OXYC1TAB23 PO; +PERC5TAB12; +PERC5TAB12 PO; +PERCOCET PO; +PROC10TA4 PO; +PSEU30OTC OR; +REME15TA PO; +SENE8.6T PO; +SENN-3 PO; +SENN1TAB2 PO; +SENO8.6T5 OR; +SOMA350T PO; +TRAM50TA2 OR; +TRAM50TA2 PO; +TUMS500C PO; +TYLE325T5 PO; +TYLETAB3 PO; +ULTR50TA PO; +VITA500T53 PO; +ZANA4TAB PO; +ZOFR4TAB14 PO; +ZOFR4TAB16 PO; +[UNRECOGNIZED DRUG - CODE] XX; +[UNRECOGNIZED DRUG - CODE] XX
[2018-09-19] MEDS: MORPHINE 2 MG/ML 1ML SYRINGE (J2270) IV PRN ×2 (16:01→16:38)
[2018-09-19 16:08] LABS: BASO % 0.3 % (0.0-1.0); EOS # 1.4 10^3/uL (0.0-0.50); EOS % 14.5 % (0.0-3.0); LYMPH # 0.4 10^3/uL (1.5-4.5); LYMPH % 4.4 % (24.0-44.0); MEAN CORPUSCULAR HEMOGLOBIN 24.7 pg (27.0-33.0); MEAN CORPUSCULAR HGB CONC 30.8 g/dl (32.0-36.5); MEAN CORPUSCULAR VOLUME 80.2 fl (80.0-96.0); MONO # 0.7 10^3/uL (0.0-0.8); MONO % 7.7 % (0.0-5.0); NEUTROPHILS # 6.7 10^3/uL (1.8-7.7); PLATELET COUNT, AUTOMATED 330 10^3/uL (150-450); RED BLOOD COUNT 3.24 10^6/uL (4.00-5.40); WHITE BLOOD COUNT 9.4 10^3/uL (4.0-10.0)
--- NOTE | 2018-09-19 16:12 | REP ---
CT ABDOMEN AND PELVIS WITHOUT CONTRAST: 09/19/2018. Comparison: 04/14/2018, without contrast; 03/17/[address] Technique: Scanning through the abdomen and pelvis with coronal and sagittal reconstructions provided. Findings: CT abdomen: Lung bases show a right pleural effusion which has a 2.8 cm thickness at the level of the duc on the right side. There is a 1.2 cm irregular nodule in the left lower lobe, new from prior CT chest 03/19/2018. Heart not grossly enlarged. There is no pericardial thickening or effusion. There is diffuse fatty infiltration of the liver without gross hepatomegaly. No biliary dilatation. No abdominal ascites about the liver or spleen. Gallbladder without calcified stone or mass. Stomach without hiatal hernia. There is abundant retained stool in the right transverse and proximal left colon. Small bowel loops are not abnormally dilated. Pancreas is unremarkable. Adrenal glands stable in appearance. There is a nephrostomy tube by the right flank into the lower pole of that right kidney as before. There is new hydronephrosis in the left kidney with a kink in the UPJ seen best on the coronal image 81 of series 202. There is no renal stone. That ureter is dilated into the pelvis without a definite stone. The aorta is without aneurysm. Periaortic region shows soft tissue density in the aortocaval space and periaortic region which could be adenopathy or inflammatory fibrosis. The mesentery shows no pathologic sized adenopathy or mass. Remainder of the retroperitoneum unremarkable. Small bowel loops unremarkable. No abdominal or pelvic free air or perforation evident. There is an umbilical hernia of only omental fat seen and it is slightly larger than the previous study. No definite fat necrosis there. Bones show sclerotic lesion of L5 unchanged from the previous study with collapse of the right superolateral endplate. The remainder lumbar and thoracic vertebral levels and posterior elements intact. Visualized ribs are intact. CT pelvis: There is anasarca with subcutaneous edema about the abdominal wall, flanks and into the pelvic subcutaneous fat. Lung window review of the soft tissue shows no emphysematous changes within the subcutaneous fat. Bladder is only partially filled. Slight wall thickening which may reflect some underfilling or some degree of cystitis. I do not see definite bladder wall mass. There are some surgical clips in the pelvis. Soft tissue at that site of surgery noted. Small uterus is noted. By history, the patient has a right salpingectomy. Small bowel loops distally show slight wall thickening chronically. No dilatation. Distal left colon, sigmoid and rectum are without signs of colitis or diverticulitis. No stricture or mass. There is no inguinal or ventral hernia in the pelvis. No inguinal adenopathy seen. The bony pelvis shows the sacrum, SI joints, pelvis, hips and ischium to be without acute finding. There is a small bone island in the intertrochanteric region on the right. Impression: 1. There is an indwelling percutaneous nephrostomy tube into the lower pole of the right kidney unchanged. 2. There is a new hydronephrosis of the left kidney with distension of the collecting system, renal pelvis and kinking of the UPJ in the upper abdomen. No stone, mass or cyst identified. No ureteral stone. That ureter is mildly dilated to the bladder. The periaortic region shows some new adenopathy or conglomerate fibrosis in the mid abdomen at the level of the lower pole of the kidneys. No other mesenteric or retroperitoneal gross finding. 3. Bladder with slight wall thickening that may be due to underfilling or some cystitis. I do not see stone. There is slight thickening of posterior wall adjacent to the uterus. Uterus not enlarged. No pelvic adnexal mass. 4. Slight thickening of small bowel portillo in the deep pelvis similar to previous study. The abdominal and pelvic portions of colon are without acute finding and unchanged. 5. Anasarca with some subcutaneous edema in the abdominal wall flanks and pelvic wall. Is the serum albumin low? 6. Diffuse fatty infiltration of the liver without gross hepatomegaly. Adrenal glands intact. Pancreas intact. Spleen not enlarged. Electronically Signed by Angel Barrett MD 09/19/2018 05:54 P
[2018-09-19 16:42] LABS: BILIRUBIN,DIRECT 0.1 MG/DL (0.0-0.2); BILIRUBIN,TOTAL 0.3 MG/DL (0.2-1.0); CALCIUM LEVEL 8.6 MG/DL (8.5-10.1); CREATININE FOR GFR 1.6 MG/DL (0.55-1.30); GLOMERULAR FILTRATION RATE 38.4 (>60); POTASSIUM SERUM 3.1 MEQ/L (3.5-5.1)
[2018-09-19] MEDS: HYDROMORPHONE HCL 0.5 MG/ 0.5 ML SYRINGE (J1170 PER 1) IV PRN ×2 (17:26→19:48)
[2018-09-19] MEDS ORDERED: NS 1,000 ML IV SCH (21:00)
[2018-09-19] MEDS ORDERED: HYDROMORPHONE HCL 0.5 MG/ 0.5 ML SYRINGE (J1170 PER 1) IV ONE (21:30)
[2018-09-20] MEDS ORDERED: HYDROMORPHONE HCL 0.5 MG/ 0.5 ML SYRINGE (J1170 PER 1) IV ONE
[2018-09-20 00:15] VITALS: BP 105/60
== END 2018-09-20 00:20 | disposition short-term general hospital (02) ==
LOC: M ED 14:40 → EDBD 14:40 → M ED 09-20 00:20
DX: N13.30 Unspecified hydronephrosis (principal); C53.9 Malignant neoplasm of cervix uteri, unspecified; C79.51 Secondary malignant neoplasm of bone; A69.20 Lyme disease, unspecified; Z87.891 Personal history of nicotine dependence; K76.0 Fatty (change of) liver, not elsewhere classified; Z79.4 Long term (current) use of insulin; Z79.899 Other long term (current) drug therapy; Z88.8 Allergy status to other drugs, medicaments and biological substances
CPT/HCPCS: 74176; 80048; 80076; 81001; 82150; 83605; 83690; 85025; 87040; 87088; 87186; 93041; 96374; 96375; 96376; 99285; J1170; J2270

== ENCOUNTER → 2018-09-25 | Outpatient (CLI) | payer MEDICARE, MEDICAID ==
[~2018-09-25] MED LIST changes: +GASTROGRAFIN SOLUTION 30ML (Q9963) As Ordered ONE; +ISOVUE-370 76% 100ML VIAL (Q9967) As Ordered ONE
--- NOTE | 2018-09-25 18:06 | REP ---
CT of the chest with IV contrast: Comparison is 03/19/2018. There is a moderate right pleural effusion as an interval change with compression atelectasis of the right lower lobe. There are lung nodules in the right upper and lower lobes as an interval change. There is a 1.6 cm nodule in the superior segment of the left lower lobe adjacent to the major fissure, also an interval change. There is no mediastinal, hilar or axillary lymph node enlargement. Thoracic aorta is unremarkable. Cardiac size is normal. There is no pericardial effusion. There is an Vskarg-O-Gzse entering from the right with the tip at the confluence of the superior vena cava and right atrium in satisfactory location. Impression: Impression: New right pleural effusion. New bilateral lung nodules. Electronically Signed by Clint Almaguer MD 09/25/2018 05:57 P
--- NOTE | 2018-09-25 19:11 | REP ---
CT of the abdomen and pelvis with IV contrast: Comparison is 09/19/2018. Dual phase scanning is performed. Scanning is initially performed during the renal cortical phase of enhancement. Scanning is repeated during the renal excretion phase of enhancement. There is a right percutaneous nephrostomy, unchanged. There is bilateral hydronephrosis, as previously. There is no perinephric stranding. The left renal pelvis is dilated to the junction of the pelvis with the ureter. This is unchanged. This may represent a UPJ stricture. The the right renal pelvis is moderately dilated. The proximal right ureter is dilated. There is focal irregular wall thickening of the posterolateral bladder wall on the right at the UVJ. This could represent bladder wall infection or bladder wall mass, not definitely present on the 08/17/2017. There is hepato steatosis. The gallbladder, pancreas, spleen and adrenals are unremarkable. Abdominal aorta is encased by diffuse soft tissue density, likely confluent adenopathy versus fibrosis. The abdominal aorta appears diffusely attenuated likely secondary to the circumferential soft tissue mass. Pelvis: The soft tissue mass along the posterior bladder wall on the right extends to the right lateral wall of the lower uterine segment, possibly a tumor extension from the patient's known carcinoma of the cervix. There is a small volume of ascites in the pelvis. No pelvic adenopathy is identified. There is diffuse circumferential gallbladder wall thickening which could be secondary to cystitis or tumor. There are two metallic densities in the pelvis, possibly tubal ligation clips. Impression: There now appears to be a mass along the posterolateral wall of the bladder on the right extending to the right lateral margin of the inferior uterine segment, possibly tumor extension. There is circumferential soft tissue density encircling the aorta, possibly confluent adenopathy. The lumen of the abdominal aorta is attenuated as a consequence. There is mild right hydronephrosis. There is a right percutaneous nephrostomy. There is left hydronephrosis to the junction of the left renal pelvis with the ureter, possibly a UPJ stricture. Hepato steatosis. There is a fat-containing umbilical hernia, unchanged. Electronically Signed by Clint Almaguer MD 09/25/2018 07:02 P
== END ==
LOC: M RAD 15:03
PROVIDERS: ATTEND Obstetrics & Gynecology
DX: C53.9 Malignant neoplasm of cervix uteri, unspecified (principal); R93.49 Abnormal radiologic findings on diagnostic imaging of other urinary organs; R93.1 Abnormal findings on diagnostic imaging of heart and coronary circulation; K76.0 Fatty (change of) liver, not elsewhere classified; K42.9 Umbilical hernia without obstruction or gangrene; R91.8 Other nonspecific abnormal finding of lung field; J90 Pleural effusion, not elsewhere classified; Z95.9 Presence of cardiac and vascular implant and graft, unspecified
CPT/HCPCS: 71260; 74177; Q9963; Q9967

== ENCOUNTER 2018-11-25 09:54 | Inpatient (IN) | payer OTHER, MEDICARE ==
[~2018-11-25 09:54] MED LIST changes: -/CELE20CA PO; +CELE1CAP4 PO; -GASTROGRAFIN SOLUTION 30ML (Q9963) As Ordered ONE; +HYDR-3715 PO; -ISOVUE-370 76% 100ML VIAL (Q9967) As Ordered ONE; -NORCOTAB PO; -SENE8.6T PO; -SENN1TAB2 PO; +SENN1TAB38 PO; +SENN1TAB40 PO; +VITA500T17 PO; -VITA500T53 PO
[2018-11-25] MEDS ORDERED: ATIV1TAB7 PO (12:58)
[2018-11-25] MEDS ORDERED: OXYC20TA2 PO (12:58)
[2018-11-25] MEDS ORDERED: MS C PO (12:58)
[2018-11-25] MEDS ORDERED: AUGM875T28 PO (12:58)
[2018-11-25] MEDS ORDERED: CHLOR10TAB PO (12:58)
[2018-11-25 13:00] VITALS: BP 114/65
[2018-11-25] MEDS ORDERED: REME15TA PO (13:14)
[2018-11-25] MEDS ORDERED: POTA1TAB14 PO (13:14)
[2018-11-25] MEDS ORDERED: GABA-843 PO (13:14)
[2018-11-25] MEDS ORDERED: TORS100T PO (13:14)
[2018-11-25] MEDS ORDERED: SPIR-10 PO (13:14)
[2018-11-25] MEDS ORDERED: CYCL10TA5 PO (13:14)
[2018-11-25] MEDS ORDERED: VITMTA PO (13:14)
[2018-11-25] MEDS ORDERED: MORP20SO3 PO (13:14)
[2018-11-25] MEDS ORDERED: MAGN400T2 PO (13:26)
[2018-11-25] MEDS ORDERED: MOM30SS PO (13:26)
[2018-11-25] MEDS ORDERED: ENEMENE PR (13:26)
[2018-11-25] MEDS ORDERED: ACET-897 PO (13:26)
[2018-11-25] MEDS ORDERED: NEUR300C PO (13:26)
[2018-11-25] MEDS ORDERED: ONDA4TAB6 PO (13:26)
[2018-11-25] MEDS ORDERED: PROC10TA4 PO (13:26)
[2018-11-25] MEDS ORDERED: COLA100C5 PO (13:26)
[2018-11-25] MEDS ORDERED: LEVS0.124 SL (13:26)
[2018-11-25] MEDS ORDERED: GUAIDM5UD PO (13:26)
[2018-11-25] MEDS ORDERED: SB S8.6T PO (13:26)
[2018-11-25] MEDS ORDERED: LIDO1PAD TOP (13:26)
[2018-11-25] MEDS ORDERED: MORPHINE 10MG/0.5ML ORAL CONCENTRATE SOLUTION U/D SL PRN (13:30)
[2018-11-25] MEDS ORDERED: ONDANSETRON 4MG/2ML VIAL (J2405) IV PRN (13:45)
[2018-11-25] MEDS ORDERED: HALOPERIDOL 5 MG/ML VIAL (J1630) IV PRN (13:45)
[2018-11-25] MEDS ORDERED: ACETAMINOPHEN 650 MG SUPP PR PRN (13:45)
[2018-11-25] MEDS ORDERED: BISACODYL 10 MG SUPP PR PRN (13:45)
[2018-11-25] MEDS: MORPHINE 4 MG/ML 1ML VIAL/SYRINGE (J2270) IV PRN (14:26)
--- NOTE | 2018-11-25 14:59 | HPEPDOC ---
General Date of Admission Nov 25, 2018 at 11:43 Chief Complaint The patient is a 38-year-old female admitted with a reason for visit of Agitation. Source: Other (History was provided by the traffic operations manager as the hospice facility, as the patient is agitated/obtunded and not able to provide history) Exam Limitations: Clinical conditions Severity: Moderate History of Present Illness is a 38-year-old female with a history of metastatic cervical cancer who was being cared for under hospice services and an inpatient facility, however, was sent over to our hospital for concerns regarding uncontrolled agitation and pain. The history was obtained from Kala the nurse traffic operations manager at the facility the patient is at. As noted, the patient has been having problems with agitation. Ativan apparently seems to have had opposite effect and did not seem to calm her. Haldol was also tried per Kala at a dose of 5 mg every 3 hours and then stopped after did not seem to help. The patient is also on high doses of opi ates. Given that her symptoms of agitation and pain cannot be controlled at the facility, the patient was transferred to the hospital. In addition, it seems the patient has not had a bowel movement despite suppositories and enemas. The patient herself has altered mentation and is not fully alert. She is a little restless at time of my examination. She is unable to answer any questions or follow commands. I did try to reach the patient's mother, however was unable to reach her by phone. Home Medications Scheduled Amoxicillin/Potassium Clav (Augmentin 875-125 Tablet) 1 Each Tablet, 1 TAB PO BID, (Reported) Chlorpromazine HCl (Chlorpromazine HCl) 100 Mg Tablet, 100 MG PO Q6H, (Reported) Cyclobenzaprine HCl (Cyclobenzaprine HCl) 10 Mg Tablet, 10 MG PO TID, (Reported) Gabapentin (Gabapentin) 300 Mg Capsule, 600 MG PO QHS, (Reported) Gabapentin (Neurontin) 300 Mg Capsule, 300 MG PO BID, (Reported) TAKES AM AND LATE AFTERNOON Lidocaine (Lidocaine) 1 Each Adh..patch, 2 PAD TOP DAILY, (Reported) HOSPICE RECORDS SAY THIS IS CURRENTLY ON HOLD Magnesium Oxide (Magnesium Oxide) 400 Mg Tablet, 400 MG PO BID, (Reported) Mirtazapine (Remeron) 15 Mg Tablet, 15 MG PO QHS, (Reported) Morphine Sulfate (Ms Contin) 60 Mg Tablet.er, 60 MG PO Q8H, (Reported) Multivitamins (Thera M Plus Tablet) 1 Each Tablet, 1 TAB PO DAILY, (Reported) HOSPICE RECORDS SAY THIS IS CURRENTLY ON HOLD Potassium Chloride (Potassium Chloride) 20 Meq Tablet.er, 20 MEQ PO DAILY, (Reported) HOSPICE RECORDS SAY THIS IS CURRENTLY ON HOLD Spironolactone (Spironolactone) 25 Mg Tablet, 25 MG PO BID, (Reported) Torsemide (Torsemide) 100 Mg Tablet, 100 MG PO BID, (Reported) Scheduled PRN Acetaminophen (Tylenol Extra Strength) 500 Mg Tablet, 1,000 MG PO Q8H PRN for PAIN, (Reported) Docusate Sodium (Colace) 100 Mg Capsule, 100 MG PO BID PRN for CONSTIPATION, (Reported) Guaifenesin/Dextromethorphan (Guaifenesin Dm Syrup) 5 Ml Syrup, 20 ML PO Q4H PRN for COUGH, (Reported) Hyoscyamine Sulfate (Levsin-Sl) 0.125 Mg Tab.subl, 0.125 MG SL Q4H PRN for TERMINAL SECRETIONS, (Reported) Lorazepam (Ativan) 1 Mg Tablet, 2 MG PO Q2H PRN for RESTLESSNESS, (Reported) Milk Of Magnesia (Milk of Magnesia) 2,400 Mg/10 Ml Oral.susp, 30 ML PO DAILY PRN for CONSTIPATION, (Reported) Morphine Sulfate (Morphine Sulfate) 100 Mg/5 Ml Solution, 80 MG PO Q2H PRN for PAIN OR DYSPNEA, (Reported) Ondansetron (Ondansetron Odt) 4 Mg Tab.rapdis, 4 MG PO Q4H PRN for NAUSEA OR VOMITING, (Reported) Oxycodone Hcl (Oxycodone HCl) 20 Mg Tablet, 40 MG PO Q2H PRN for PAIN, (Reported) Prochlorperazine Maleate (Prochlorperazine Maleate) 10 Mg Tablet, 10 MG PO Q6H PRN for NAUSEA, (Reported) Sennosides (Senna Lax) 8.6 Mg Tablet, 17.2 MG PO QHS PRN for CONSTIPATION, (Reported) Sodium Phosphate,Lamoure-Dibasic (Enema) 133 Ml Enema, 1 NAHID DE DAILY PRN for CONSTIPATION, (Reported) Allergies Coded Allergies: methylphenidate (Verified Adverse Reaction, Mild, ANXIOUS, 11/25/18) metoclopramide (Verified Adverse Reaction, Mild, DEPRESSION AND ALTERED MENTAL STATUS, 11/25/18) prednisone (Verified Adverse Reaction, Mild, DEPRESSION, 11/25/18) Past Medical History Medical History Chart review indicates previous history of junctional tachycardia, chest pain, GERD, chronic back pain, degenerative disc disease, low back pain, UTI, nephrolithiasis, colitis, displaced right nephrostomy tube, questionable history of Lyme's disease, congestive heart failure, cervical cancer with vertebral metastases, hemorrhoids, constipation, eventually, abdominal pain, hydronephrosis Surgical History Right nephrostomy tube which has previously dislodged, tubal 2007, neck surgery in May 2014, port in right chest for chemotherapy in September 2017 Family History Fathermelanoma, hypertension Momrheumatoid arthritis Social History Previous chart note indicates she smoked 4 cigarettes per day for 20 years. She used to drink alcohol and no history of drug use in the past per previous chart note. Review of Systems Other systems Could not be obtained secondary to patient's altered mentation Physical Examination General Exam: Positive: Other (lying in bed. Restless at times. Moans occasionally.) Eye Exam: Positive: PERRLA ENT Exam: Positive: Other ENT (oral mucous membranes a little dry) Chest Exam: Positive: Clear to auscultation, Other (no overt secretions or rhonchi.) Heart Exam: Positive: Other (S1, S2 heard, no rubs or gallops) Abdomen Exam: Positive: Other (protuberant/distended. Hyperactive bowel sounds. No rigidity.) Skin Exam: Positive: Other skin issue (extremities a little cool to touch with some slight dusky discoloration in the fingernails. Capillary refill does appear to be less than 2 seconds in both hands and feet) Neuro Exam: Positive: Other (restless. Eyes are partly closed. Does not follow commands or answer questions.) Vital Signs Respiratory rate normal. Assessment/Plan Agitation: -Seems to be a little less agitated at this time. -We will use as needed IV Haldol -Hold off on lorazepam as this seemed to cause more agitation previously Constipation with Abdominal distention -Continue Dulcolax suppository as needed -Given her altered mentation, patient will be nothing by mouth except meds and comfort feeds -Patient may have some underlying ascites given her metastatic cervical cancer and since she seems to have dilated periumbilical veins on exam - no indication for paracentesis for comfort at this time Primary cervical cancer with vertebral metastases -Sublingual morphine as well as IV morphine as needed for pain control -If pain is not adequately controlled with the above regimen, we may need to use morphine drip -Atropine sublingual as needed for secretions -Continue comfort measures only Right dislodged nephrostomy: -Continue stoma bag to collect urine -Estrada catheter in placeslight hematuria noted. GI/DVT prophylaxis -Not indicated Code status: -DNR/DNI, comfort measures only Plan / VTE VTE Prophylaxis Ordered?: No SANDOVAL GREENFIELD MD Nov 25, 2018 13:47
[2018-11-25] MEDS ORDERED: fentaNYL 75 MCG/HR PATCH TOP SCH (18:00)
[2018-11-26] MEDS: MORPHINE 4 MG/ML 1ML VIAL/SYRINGE (J2270) IV PRN (01:25)
[2018-11-26] MEDS: MORPHINE 10MG/0.5ML ORAL CONCENTRATE SOLUTION U/D SL PRN ×4 (03:26→18:46)
--- NOTE | 2018-11-26 10:06 | IPNPDOC ---
Subjective Date Seen The patient was seen on 11/26/18. Subjective Chief Complaint/HPI The patient is a 38-year-old female with metastatic cervical cancer on hospice at [facility] who was sent over to the hospital for uncontrolled agitation as well as pain. Events since last encounter The patient was more restful through the night per nurse. She required a couple of doses of IV medications but otherwise symptoms appear controlled on by mouth medications. The patient herself is not able to answer any questions given her altered mentation. General: Reports: ROS Unobtainable Objective Physical Examination General Exam: Positive: Other (slight restlessness.) Eye Exam: Positive: PERRLA ENT Exam: Positive: Other ENT (oral mucous membranes a little dry) Chest Exam: Positive: Clear to auscultation (no overt wheezing or distress) Heart Exam: Positive: Other (slightly tachycardic.) Abdomen Exam: Positive: Other (protuberant/distended. Hypoactive bowel sounds. No rigidity.) Skin Exam: Positive: Other skin issue (slightly sluggish peripheral circulation and slightly cool extremities. No mottling.) Neuro Exam: Positive: Other (slightly restless. Not answering questions or following commands.) Assessment /Plan Assessment Agitation: -Seems improved -Continue prn IV Haldol - has not needed same -Holding off on lorazepam as this seemed to cause more agitation previously Constipation with Abdominal distention -Continue Dulcolax suppository as needed -Given her altered mentation, patient will be nothing by mouth except meds and comfort feeds -Patient may have some underlying ascites given her metastatic cervical cancer Primary cervical cancer with vertebral metastases -Sublingual morphine as well as IV morphine as needed for pain control -Continue fentanyl patch 75 mcg/hr started yesterday afternoon -Patient appears a little better controlled -Atropine sublingual as needed for secretions -Continue comfort measures only Right dislodged nephrostomy: -Continue stoma bag to collect urine -Estrada catheter in place as well GI/DVT prophylaxis -Not indicated Code status: -DNR/DNI, comfort measures only Disposition: -Discussed with nurse regarding trying oral medications on the today. If sym ptoms can be controlled on by mouth meds alone, anticipate possible discharge to [facility] tomorrow Plan/VTE VTE Prophylaxis Ordered?: No VTE Exclusion Mechanical Proph: Other (comfort measures only) VTE Exclusion Pharmacological: Other (comfort measures only) VS, I&O, 24H, Fishbone Vital Signs/I&O Vital Signs Date Time Temp Pulse Resp B/P (MAP) Pulse Ox O2 Delivery O2 Flow Rate FiO2 11/26/18 03:26 3.0 11/25/18 14:00 90 11/25/18 13:00 96.0 95 20 114/65 (81) I&O- Last 24 Hours up to 6 AM 11/26/18 06:00 Intake Total 0 ml Output Total 700 ml Balance -700 ml SANDOVAL GREENFIELD MD Nov 26, 2018 10:06
[2018-11-26] MEDS: ATROPINE SULFATE 1% OP SOLN 2 ML BTL SL PRN ×3 (11:47→16:42)
[2018-11-26] MEDS ORDERED: SCOPOLAMINE 1MG TRANSDERMAL PATCH TOP SCH (17:00)
[2018-11-27] MEDS: MORPHINE 4 MG/ML 1ML VIAL/SYRINGE (J2270) IV PRN (01:36)
[2018-11-27] MEDS: MORPHINE 10MG/0.5ML ORAL CONCENTRATE SOLUTION U/D SL PRN ×2 (03:56→07:58)
--- NOTE | 2018-11-27 10:06 | IPNPDOC ---
Subjective Date Seen The patient was seen on 11/27/18. Subjective Chief Complaint/HPI Spoke with nursing this morning. Hospice nurse has been in to see the patient, advised that they will be be transferring her back to the house because they feel is imminent. General: Reports: ROS Unobtainable Objective Physical Examination General Exam: Positive: Other (Pt does not respond to verbal stimuli. She has a few subtle tremors. ); Negative: Alert ENT Exam: Negative: Mucous membr. moist/pink Chest Exam: Positive: Clear to auscultation (BS difficult to appreciate d/t rattling of secretions) Heart Exam: Positive: Tachycardic Skin Exam: Positive: Other skin issue (Mottling and cool to touch of RLE to mid foot, LLE warm) Psych Exam: Negative: Mental status NL Assessment /Plan Problems (1) Comfort measures only status Status: Acute Discussed With: Nurse Problem Specific Plan: Monitor Clinically Problem Text: Pts clinical condition appears to continue to decline. Hospice patient, cont current medication regimen. 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
[2018-11-27] MEDS ORDERED: FENTANYL REMOVAL DOCUMENTATION MISC XX SCH (16:00)
--- NOTE | 2018-11-28 15:21 | DSES ---
DATE OF ADMISSION: 11/25/2018 DATE OF /DISCHARGE: 11/27/2018 PRIMARY CARE PROVIDER: Edel Larsen NP HISTORY: This is a 38-year-old female patient who [place] [facility] [place]. She was admitted to the hospital for uncontrolled agitation and pain for assistance with management. During her hospitalization, we were able to obtain improved control of her pain with IV morphine and then sublingual morphine was reintroduced. The primary goal of management during her hospitalization was to control her agitation and pain which was felt to be accomplished according to her family. The patient on 11/27/2018. DISCHARGE DIAGNOSES: Include: 1. Metastatic cervical cancer. 2. Agitation. 3. Constipation. 4. Right dislodged nephrostomy tube. The patient's family was notified of her passing.
== END 2018-11-27 10:55 | disposition expired | DRG 951 ==
LOC: M MSPAV 11:43
PROVIDERS: ADMIT Internal Medicine; ATTEND Family Medicine
DX: Z51.5 Encounter for palliative care (principal); C79.51 Secondary malignant neoplasm of bone; C53.9 Malignant neoplasm of cervix uteri, unspecified; K59.00 Constipation, unspecified; Z79.899 Other long term (current) drug therapy; Z88.8 Allergy status to other drugs, medicaments and biological substances; Z66 Do not resuscitate; G89.3 Neoplasm related pain (acute) (chronic); N99.53 Complication of continent stoma of urinary tract; R31.9 Hematuria, unspecified; R45.1 Restlessness and agitation